=== PATIENT | male | born 1980 | race Caucasian/White ===

== ENCOUNTER 2017-08-05 18:17 | Emergency (ER) | payer SELFPAY ==
--- NOTE | 2017-08-05 19:22 | ER ---
Nurse's Notes [facility] Name: Mike Daugherty Age: 37 yrs Sex: Male : 1980 Arrival Date: 08/05/2017 Time: 18:19 Bed Waiting Private MD: None, None Diagnosis: Presentation: 08/05 18:24 Presenting complaint: Patient states: Lower back pain 1 week ago that has now moved into [facility]. Patient reports that he was going to come to the ER last night but he had to go to work today, so he came after work. Transition of care: patient was not received from another setting of care. Onset of symptoms was July 31, 2017. Risk Assessment: Do you want to hurt yourself or someone else? Patient reports no desire to harm self or others. Care prior to arrival: None. 18:24 Method Of Arrival: Ambulatory 18:24 Acuity: UTE 3 19:20 Note Patient asked registration how long the wait would be. Patient told by aj registration the was was approximately 1 hour. Patient stated "I'll just come back tomorrow after work.". Triage Assessment: 18:25 General: Appears in no apparent distress. uncomfortable, Behavior is calm, cooperative, aj appropriate for age. Pain: Complains of pain in left upper quadrant. Neuro: Level of Consciousness is awake, alert, obeys commands, Oriented to person, place, time, situation, Appropriate for age. Respiratory: Airway is patent Respiratory effort is even, unlabored, Respiratory pattern is regular, symmetrical. GI: Reports upper abdominal pain. Derm: Skin is intact, is healthy with good turgor, Skin is pink, warm \\T\\ dry. normal. Historical: - Allergies: 18:25 PENICILLINS; aj - Home Meds: 18:25 None [Active]; aj - PMHx: 18:25 None; aj - PSHx: 18:25 Appendectomy; aj - Immunization history:: Adult Immunizations up to date. - Social history:: Smoking status: Patient uses tobacco products, smokes one pack cigarettes per day. - Ebola Screening: : Patient negative for fever greater than or equal to 101.5 degrees Fahrenheit, and additional compatible Ebola Virus Disease symptoms Patient denies exposure to infectious person Patient denies travel to an Ebola-affected area in the 21 days before illness onset No symptoms or risks identified at this time. Vital Signs: 18:25 BP 124 / 75; Pulse 82; Resp 16; Temp 97.8; Pulse Ox 97% on R/A; Weight 86.18 kg; Height aj 5 ft. 6 in. (167.64 cm); 18:25 Body Mass Index 30.67 (86.18 kg, 167.64 cm) aj ED Course: 18:19 Patient arrived in ED. sb2 18:20 None, None is Private Physician. sb2 18:25 Triage completed. aj 18:25 Arm band placed on left wrist. Patient placed in waiting room, Patient notified of wait aj time. 19:21 Johnson Coulter MD is Attending Physician. aj Administered Medications: No medications were administered Outcome: 19:19 Eloped from waiting room, Time discovered patient gone: August 05, 2017 at 19:20 aj 19:21 Patient left the ED. aj Signatures: Natalee Almaraz, RN RN Diane Jack sb2
== END 2017-08-05 19:21 | disposition left against medical advice (07) ==
LOC: ER 18:17
DX: Z53.21 Procedure and treatment not carried out due to patient leaving prior to being seen by health care provider (principal)
CPT/HCPCS: 99281

== ENCOUNTER 2017-08-06 18:23 | Emergency (ER) | payer SELFPAY ==
[2017-08-06] MEDS ORDERED: KETOROLAC 30 MG/ML INJ ONE (21:08)
[2017-08-06] MEDS ORDERED: NA CHLORIDE 0.9% 1,000 ML ONE (21:08)
--- NOTE | 2017-08-06 21:14 | RAD REPORT ---
EXAM DESCRIPTION: CT - Stone Protocol - 08/06/2017 8:59 pm CLINICAL HISTORY: Left upper quadrant pain COMPARISON: None. TECHNIQUE: Axial 5 mm thick images were obtained without oral or IV contrast. The [id number] span s the entirety of the system partially obscuring uppermost abdomen and lung bases. All CT scans are performed using dose optimization technique as appropriate and may include automated exposure control or mA/KV adjustment according to patient size. FINDINGS: No hydronephrosis is present and no obstructing ureteral calculi. No suspicious renal mass es. Isodense masses and pyelonephritis are not excluded on a stone protocol CT scan. No urinary bladd er suspicious finding. Imaged portions of the liver, spleen and pancreas show no suspicious findings on non-contrast imaging . No gallbladder or biliary tree abnormality identified. Liver attenuation borderline fatty infiltrat ed. No adrenal abnormality. No suspicious bowel findings. No hernia, mass or bulky lymphadenopathy noted. No free air, free fluid or inflammatory stranding. No significant bony abnormality. IMPRESSION: Negative CT stone protocol study. Isodense masses and pyelonephritis are not excluded on stone protocol technique. No acute GI process.
[2017-08-06 21:54] LABS: Absolute Lymphocytes (CBC) 3.2 K/uL (0.7-4.9); Absolute Neutrophil 7.1 K/uL (1.8-8.0); Basophils % 0.7 % (0-1.3); Eosinophils % 8.4 % (0-4.4); Hematocrit 44.9 % (39.6-49.0); Lymphocytes % 25.8 % (15.3-44.8); MCH 28.1 pg (27.0-35.0); MCV 86.7 fL (80-100); MPV 10.1 fL (7.6-11.3); RBC Red Blood Cell Count 5.17 M/uL (4.33-5.43)
[2017-08-06 22:10] LABS: Potassium 3.7 mEq/L (3.6-5.0)
[2017-08-06 22:16] LABS: Albumin 3.8 g/dL (3.2-5.5); Bilirubin Direct 0.1 mg/dL (0-0.2); Bilirubin Total 0.5 mg/dL (0.3-1.2); Protein, Total 6.8 g/dL (6.0-8.3)
[2017-08-06] MEDS ORDERED: ONDANSETRON 4 MG/2 ML VIAL ONE (22:16)
[2017-08-06] MEDS ORDERED: MORPHINE 4 MG/ML SYR ONE (22:16)
[2017-08-06 22:38] LABS: Urine Blood NEGATIVE (NEG); Urine Glucose NEGATIVE (NEG); Urine Protein 1+ (NEG); Urine Specific Gravity >1.030 (1.005-1.030)
[2017-08-06 22:49] LABS: Urine Bacteria <20 /HPF (NONE SEEN); Urine Culture Reflex Order NOT NEEDED; Urine Mucus HEAVY /HPF (NONE SEEN); Urine RBC NONE SEEN /HPF (NONE SEEN)
--- NOTE | 2017-08-06 23:24 | EDPHYS ---
Physician Documentation [facility] Name: Mike Daugherty Age: 37 yrs Sex: Male : 1980 Arrival Date: 08/06/2017 Time: 18:26 Bed 14 Private MD: ED Physician Lauri Araiza HPI: 08/07 00:00 This 37 yrs old Male presents to ER via Ambulatory with complaints of pm1 Abdominal Pain. 00:00 The patient presents with abdominal pain in the epigastric area, in the left upper pm1 quadrant, in the left lower quadrant. Onset: The symptoms/episode began/occurred 2 week(s) ago. The symptoms do not radiate. Associated signs and symptoms: Pertinent negatives: nausea, vomiting, and diarrhea, blood in stools, chest pain, dysuria, fever, shortness of breath. The symptoms are described as burning. Modifying factors: The symptoms are alleviated by nothing, the symptoms are aggravated by nothing. Severity of pain: in the emergency department the pain is actually worse. The patient has not experienced similar symptoms in the past. The patient has not recently seen a physician. Historical: - Allergies: 08/06 18:37 PENICILLINS; aj - Home Meds: 18:37 None [Active]; aj - PMHx: 18:37 None; aj - PSHx: 18:37 None; aj - Immunization history:: Adult Immunizations up to date. - Social history:: Smoking status: Patient uses tobacco products, smokes one pack cigarettes per day. - Ebola Screening: : Patient negative for fever greater than or equal to 101.5 degrees Fahrenheit, and additional compatible Ebola Virus Disease symptoms Patient denies exposure to infectious person Patient denies travel to an Ebola-affected area in the 21 days before illness onset No symptoms or risks identified at this time. ROS: 08/07 00:00 Constitutional: Negative for fever, chills, and weight loss, Eyes: Negative for injury, pm1 pain, redness, and discharge, ENT: Negative for injury, pain, and discharge, Neck: Negative for injury, pain, and swelling, Cardiovascular: Negative for chest pain, palpitations, and edema, Respiratory: Negative for shortness of breath, cough, wheezing, and pleuritic chest pain. Back: Negative for injury and pain, : Negative for injury, bleeding, discharge, and swelling, MS/Extremity: Negative for injury and deformity, Skin: Negative for injury, rash, and discoloration, Neuro: Negative for headache, weakness, numbness, tingling, and seizure. Abdomen/GI: Positive for abdominal pain, Negative for nausea, vomiting, and diarrhea. Exam: 00:00 Constitutional: This is a well developed, well nourished patient who is awake, alert, pm1 and in no acute distress. Head/Face: Normocephalic, atraumatic. Chest/axilla: Normal chest wall appearance and motion. Nontender with no deformity. No lesions are appreciated. Cardiovascular: Regular rate and rhythm with a normal S1 and S2. No gallops, murmurs, or rubs. Normal PMI, no JVD. No pulse deficits. Respiratory: Lungs have equal breath sounds bilaterally, clear to auscultation and percussion. No rales, rhonchi or wheezes noted. No increased work of breathing, no retractions or nasal flaring. 00:00 Back: No spinal tenderness. No costovertebral tenderness. Full range of motion. Skin: Warm, dry with normal turgor. Normal color with no rashes, no lesions, and no evidence of cellulitis. MS/ Extremity: Pulses equal, no cyanosis. Neurovascular intact. Full, normal range of motion. 00:00 Abdomen/GI: Inspection: abdomen appears normal, Bowel sounds: normal, Palpation: soft, mild abdominal tenderness, in the epigastric area and left upper quadrant, mass, is not appreciated, rebound tenderness, is not appreciated. 00:00 Neuro: Orientation: is normal, Motor: moves all fours. Vital Signs: 08/06 18:37 BP 122 / 76; Pulse 80; Resp 16; Temp 98.2; Pulse Ox 97% on R/A; Weight 86.18 kg; Height aj 5 ft. 5 in. (165.10 cm); Pain 10/10; 20:20 BP 141 / 95; Pulse 69; Resp 17; Pulse Ox 100% on R/A; Pain 9/10; bs1 21:20 BP 138 / 86; Pulse 80; Resp 16; Pulse Ox 99% on R/A; bs1 22:20 BP 120 / 72; Pulse 71; Resp 16 S; Pulse Ox 96% on R/A; bs1 23:20 BP 130 / 72; Pulse 79; Resp 16; Pulse Ox 99% on R/A; bs1 08/07 00:20 BP 132 / 80; Pulse 80; Resp 16 S; Temp 98(O); Pulse Ox 100% on R/A; Pain 5/10; bs1 08/06 18:37 Body Mass Index 31.62 (86.18 kg, 165.10 cm) aj MDM: 08/06 20:37 Patient medically screened. [facility] 20:48 Data reviewed: vital signs. Data interpreted: Pulse oximetry: on room air is 97 %. 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 08/07 00:10 ED course: improvement in pain with GI cocktail. pm1 08/06 20:37 Order name: Amylase, Serum; Complete Time: 23:18 pm1 08/06 20:37 Order name: Basic Metabolic Panel; Complete Time: 23:18 pm1 08/06 20:37 Order name: CBC with Diff; Complete Time: 23:18 pm1 08/06 20:37 Order name: Creatinine for Radiology; Complete Time: 23:18 pm1 08/06 20:37 Order name: Hepatic Function; Complete Time: 23:18 pm1 08/06 20:37 Order name: Lipase; Complete Time: 23:18 pm1 08/06 20:37 Order name: Urine Microscopic Only; Complete Time: 23:18 pm1 08/06 20:50 Order name: CT Stone Protocol; Complete Time: 21:29 pm1 08/06 22:13 Order name: Urine Dipstick--Ancillary (enter results); Complete Time: 23:18 ms 08/06 20:37 Order name: IV Saline Lock; Complete Time: 21:48 pm1 08/06 20:37 Order name: Labs collected and sent; Complete Time: 21:48 pm1 08/06 20:37 Order name: Urine Dipstick-Ancillary (obtain specimen); Complete Time: 22:21 pm1 Administered Medications: 08/06 21:22 Drug: NS 0.9% 1000 ml Route: IV; Rate: 1000 ml; Site: right antecubital; bs1 08/07 00:21 Follow up: IV Status: Completed infusion bs1 08/06 21:22 Drug: TORadol 30 mg Route: IVP; Site: right antecubital; bs1 08/07 00:21 Follow up: Response: No adverse reaction bs1 08/06 22:19 Drug: morphine 4 mg Route: IVP; Site: right antecubital; bs1 08/07 00:21 Follow up: Response: No adverse reaction bs1 08/06 22:20 Drug: Zofran 4 mg Route: IVP; Site: right antecubital; bs1 08/07 00:21 Follow up: Response: No adverse reaction bs1 08/06 23:43 Drug: GI Cocktail without - (Maalox Suspension 30 ml, Lidocaine Liquid 2 % 15 bs1 ml) Route: PO; 08/07 00:20 Follow up: Response: No adverse reaction bs1 Disposition: 07:20 Co-signature as Attending Physician, Lauri Araiza MD I agree with the assessment and [facility] plan of care. Disposition: 08/06/17 23:23 Discharged to Home. Impression: Unspecified abdominal pain. - Condition is Stable. - Discharge Instructions: Abdominal Pain, Adult. - Prescriptions for Bentyl 20 mg Oral Tablet - take 1 tablet by ORAL route every 6 hours As needed; 20 tablet. Pepcid 20 mg Oral Tablet - take 1 tablet by ORAL route every 12 hours for 10 days; 20 tablet. - Medication Reconciliation Form, Thank You Letter, Antibiotic Education form. - Follow up: Emergency Department; When: As needed; Reason: Worsening of condition. Follow up: Private Physician; When: 2 - 3 days; Reason: Recheck today's complaints, Continuance of care, Re-evaluation by your physician. - Problem is new. - Symptoms have improved. Signatures: Dispatcher [employer] EDMS Natalee Almaraz RN RN aj Anderson, Corey, MD MD cha Marinas, Patrick, BIOINFORMATICS SCIENTIST BIOINFORMATICS SCIENTIST pm1 Naz Faustin, RN RN bs1 Corrections: (The following items were deleted from the chart) 00:30 08/06 23:23 08/06/2017 23:23 Discharged to Home. Impression: Unspecified abdominal bs1 pain. Condition is Stable. Forms are Medication Reconciliation Form, Thank You Letter, Antibiotic Education, Prescription Opioid Use. Follow up: Emergency Department; When: As needed; Reason: Worsening of condition. Follow up: Private Physician; When: 2 - 3 days; Reason: Recheck today's complaints, Continuance of care, Re-evaluation by your physician. Problem is new. Symptoms have improved. pm1
--- NOTE | 2017-08-06 23:24 | ER ---
Nurse's Notes [facility] Name: Mike Daugherty Age: 37 yrs Sex: Male : 1980 Arrival Date: 08/06/2017 Time: 18:26 Bed 14 Private MD: Diagnosis: Unspecified abdominal pain Presentation: 08/06 18:36 Presenting complaint: Patient states: LUQ pain for over 1 week. Patient states pain is aj 10/10 while actively playing game on cell phone. Transition of care: patient was not received from another setting of care. Onset of symptoms was July 30, 2017. Risk Assessment: Do you want to hurt yourself or someone else? Patient reports no desire to harm self or others. Care prior to arrival: None. 18:36 Method Of Arrival: Ambulatory aj 18:36 Acuity: UTE 3 aj 23:06 Initial Sepsis Screen: Does the patient meet any 2 criteria? No. Patient's initial bs1 sepsis screen is negative. Does the patient have a suspected source of infection? No. Patient's initial sepsis screen is negative. Triage Assessment: 18:37 General: Appears in no apparent distress. comfortable, Behavior is calm, cooperative, aj appropriate for age. Pain: Complains of pain in left upper quadrant. Neuro: Level of Consciousness is awake, alert, obeys commands, Oriented to person, place, time, situation, Appropriate for age. Respiratory: Airway is patent Respiratory effort is even, unlabored, Respiratory pattern is regular, symmetrical. GI: Reports upper abdominal pain. Derm: Skin is intact, is healthy with good turgor, Skin is pink, warm \T\ dry. normal. Historical: - Allergies: 18:37 PENICILLINS; aj - Home Meds: 18:37 None [Active]; aj - PMHx: 18:37 None; aj - PSHx: 18:37 None; aj - Immunization history:: Adult Immunizations up to date. - Social history:: Smoking status: Patient uses tobacco products, smokes one pack cigarettes per day. - Ebola Screening: : Patient negative for fever greater than or equal to 101.5 degrees Fahrenheit, and additional compatible Ebola Virus Disease symptoms Patient denies exposure to infectious person Patient denies travel to an Ebola-affected area in the 21 days before illness onset No symptoms or risks identified at this time. Screenin:05 Abuse screen: Denies threats or abuse. Denies injuries from another. Nutritional bs1 screening: No deficits noted. Tuberculosis screening: No symptoms or risk factors identified. Fall Risk None identified. Assessment: 20:20 General: Appears in no apparent distress. uncomfortable, Behavior is cooperative, bs1 anxious. Pain: Complains of pain in abdomen and left upper quadrant Pain radiates to right flank. Neuro: Level of Consciousness is awake, alert, obeys commands, Oriented to person, place, time, situation, Appropriate for age. Cardiovascular: Denies chest pain, shortness of breath, Heart tones S1 S2 present Capillary refill < 3 seconds Patient's skin is warm and dry. Respiratory: Airway is patent Trachea midline Respiratory effort is even, unlabored, Respiratory pattern is regular, symmetrical, Breath sounds are clear bilaterally. GI: Abdomen is round non-distended, Bowel sounds present X 4 quads. Abdomen is tender to palpation in left lower quadrant Reports nausea. : Reports burning with urination. EENT: No signs and/or symptoms were reported regarding the EENT system. Derm: Skin is intact. Musculoskeletal: Circulation, motion, and sensation intact. Capillary refill < 3 seconds, Range of motion: intact in all extremities. 21:45 Reassessment: Patient appears in no apparent distress at this time. Patient and/or bs1 family updated on plan of care and expected duration. Pain level reassessed. Patient is alert, oriented x 3, equal unlabored respirations, skin warm/dry/pink. c/o abdominal pain. 22:45 Reassessment: No changes from previously documented assessment. Patient and/or family bs1 updated on plan of care and expected duration. Pain level reassessed. Patient is alert, oriented x 3, equal unlabored respirations, skin warm/dry/pink. 08/07 00:15 Reassessment: Patient appears in no apparent distress at this time. Patient and/or bs1 family updated on plan of care and expected duration. Pain level reassessed. Patient is alert, oriented x 3, equal unlabored respirations, skin warm/dry/pink. Patient states feeling better. Vital Signs: 08/06 18:37 BP 122 / 76; Pulse 80; Resp 16; Temp 98.2; Pulse Ox 97% on R/A; Weight 86.18 kg; Height aj 5 ft. 5 in. (165.10 cm); Pain 10/10; 20:20 BP 141 / 95; Pulse 69; Resp 17; Pulse Ox 100% on R/A; Pain 9/10; bs1 21:20 BP 138 / 86; Pulse 80; Resp 16; Pulse Ox 99% on R/A; bs1 22:20 BP 120 / 72; Pulse 71; Resp 16 S; Pulse Ox 96% on R/A; bs1 23:20 BP 130 / 72; Pulse 79; Resp 16; Pulse Ox 99% on R/A; bs1 08/07 00:20 BP 132 / 80; Pulse 80; Resp 16 S; Temp 98(O); Pulse Ox 100% on R/A; Pain 5/10; bs1 08/06 18:37 Body Mass Index 31.62 (86.18 kg, 165.10 cm) aj ED Course: 08/06 18:26 Patient arrived in ED. sb2 18:37 Triage completed. aj 18:37 Arm band placed on left wrist. Patient placed in waiting room, Patient notified of wait aj time. 20:35 Shlomo Monroe NP is PHCP. pm1 20:35 Lauri Araiza MD is Attending Physician. pm1 20:[address] via wheelchair. sj 20:59 CT Stone Protocol In Process Unspecified. EDMS 20:59 CT completed. Patient tolerated procedure well. Patient moved back from [place]. nj 21:04 Naz Faustin, RN is Primary Nurse. bs1 21:15 Inserted saline lock: 22 gauge in right antecubital area, using aseptic technique. bs1 Blood collected. 23:05 No provider procedures requiring assistance completed. bs1 23:06 Patient has correct armband on for positive identification. Bed in low position. Call bs1 light in reach. Side rails up X 1. Pulse ox on. NIBP on. Warm blanket given. 08/07 00:20 IV discontinued, bleeding controlled, No redness/swelling at site. Pressure dressing bs1 applied. Administered Medications: 08/06 21:22 Drug: NS 0.9% 1000 ml Route: IV; Rate: 1000 ml; Site: right antecubital; bs1 08/07 00:21 Follow up: IV Status: Completed infusion bs1 08/06 21:22 Drug: TORadol 30 mg Route: IVP; Site: right antecubital; bs1 08/07 00:21 Follow up: Response: No adverse reaction bs1 08/06 22:19 Drug: morphine 4 mg Route: IVP; Site: right antecubital; bs1 08/07 00:21 Follow up: Response: No adverse reaction bs1 08/06 22:20 Drug: Zofran 4 mg Route: IVP; Site: right antecubital; bs1 08/07 00:21 Follow up: Response: No adverse reaction bs1 08/06 23:43 Drug: GI Cocktail without - (Maalox Suspension 30 ml, Lidocaine Liquid 2 % 15 bs1 ml) Route: PO; 08/07 00:20 Follow up: Response: No adverse reaction bs1 Outcome: 08/06 23:23 Discharge ordered by . pm1 08/07 00:20 Discharged to home with significant other. bs1 Condition: stable Discharge instructions given to patient, Instructed on discharge instructions, follow up and referral plans. medication usage, Demonstrated understanding of instructions, follow-up care, medications, Prescriptions given X 2. 00:30 Patient left the ED. bs1 Signatures: Dispatcher [employer] Natalee Zapata, RN Veronica Coffman Patrick, NP [employer]PER pm1 Ha Baltazar Brittany, RN RN bs1 Diane Rios2
[2017-08-06] MEDS ORDERED: LIDOCAINE VISCOUS 2% SOLN 15 ML UDC ONE (23:39)
[2017-08-06] MEDS ORDERED: MAGNE/ALUM HYDROXD 30 ML UCUP ONE (23:39)
== END 2017-08-07 00:30 | disposition home or self-care (01) ==
LOC: ER 18:23
DX: R10.9 Unspecified abdominal pain (principal); F17.210 Nicotine dependence, cigarettes, uncomplicated; Z88.0 Allergy status to penicillin
CPT/HCPCS: 36415; 74176; 76377; 80048; 80076; 81003; 81015; 82150; 83690; 85025; 96361; 96374; 96375; 99284; J2405; J7030

== ENCOUNTER 2017-08-31 19:02 | Emergency (ER) | payer SELFPAY ==
[2017-08-31 19:43] LABS: Absolute Neutrophil 9.3 K/uL (1.8-8.0); Basophils % 0.6 % (0-1.3); Hematocrit 48.2 % (39.6-49.0); Lymphocytes % 20.7 % (15.3-44.8); MCH 28.9 pg (27.0-35.0); MCV 85.6 fL (80-100); MPV 9.7 fL (7.6-11.3); Monocytes % 6.6 % (3.3-12.3); RBC Red Blood Cell Count 5.62 M/uL (4.33-5.43)
[2017-08-31] MEDS ORDERED: FAMOTIDINE 20 MG/2 ML VIAL IV ONE (19:52)
[2017-08-31 19:57] LABS: ALT/SGPT 29 U/L (12-78); AST/SGOT 17 U/L (15-37); Albumin 3.6 g/dL (3.4-5.0); Alkaline Phosphatase 78 U/L (45-117); BUN Blood Urea Nitrogen 12 mg/dL (7-18); Bicarbonate 26 mmol/L (21-32); Bilirubin Direct < 0.1 mg/dL (0-0.2); Bilirubin Total 0.3 mg/dL (0.2-1.0); Glucose Level 101 mg/dL (74-106); Lipase 311 U/L (73-393); Potassium 3.9 mmol/L (3.5-5.1); Protein, Total 7.3 g/dL (6.4-8.2); Sodium Level 139 mmol/L (136-145)
[2017-08-31] MEDS ORDERED: MAGNE/ALUM HYDROXD 30 ML UCUP ONE (20:12)
[2017-08-31] MEDS ORDERED: LIDOCAINE VISCOUS 2% SOLN 15 ML UDC ONE (20:13)
--- NOTE | 2017-08-31 21:21 | RAD REPORT ---
EXAM DESCRIPTION: CTAbdomen Pelvis W Contrast - 08/31/2017 9:11 pm CLINICAL HISTORY: Abdominal pain. iv only;Abd pain COMPARISON: Stone Protocol dated 08/06/2017; CT ABD PELVIS W CONTRAST dated 08/21/2010 TECHNIQUE: Biphasic CT imaging of the abdomen and pelvis was performed with 100 ml non-ionic IV cont rast. All CT scans are performed using dose optimization technique as appropriate and may include automated exposure control or mA/KV adjustment according to patient size. FINDINGS: The lung bases are clear. The liver, spleen, pancreas, adrenal glands and kidneys are within normal limits. No bowel obstruction, free air, free fluid or abscess. Appendectomy. No evidence of significant lym phadenopathy. No suspicious bony findings. IMPRESSION: No acute intra-abdominal or pelvic finding.
[2017-08-31] MEDS ORDERED: MORPHINE 4 MG/ML SYR ONE (21:22)
[2017-08-31] MEDS ORDERED: ONDANSETRON 4 MG/2 ML VIAL ONE (21:22)
[2017-08-31 21:26] LABS: Urine Blood NEGATIVE (NEG); Urine Glucose 4+ (NEG); Urine Protein NEGATIVE (NEG); Urine Specific Gravity 1.025 (1.005-1.030); Urine pH 6.5 (5.0-7.0)
--- NOTE | 2017-08-31 21:28 | ER ---
Nurse's Notes [facility] Name: Mike Daugherty Age: 37 yrs Sex: Male : 1980 Arrival Date: 08/31/2017 Time: 19:05 Bed 5 Private MD: Diagnosis: Gastritis, unspecified, without bleeding;Gastro-esophageal reflux disease with esophagitis Presentation: 08/31 19:08 Presenting complaint: Patient states: "For a few months now off and on, I have had pain lk1 like when I had my appendix out. Now for a few days, the pain has been constant. I wake up at night and feel like I have fire in my throat.". Transition of care: patient was not received from another setting of care. Onset of symptoms was August 25, 2017. Risk Assessment: Do you want to hurt yourself or someone else? Patient reports no desire to harm self or others. Initial Sepsis Screen: Does the patient meet any 2 criteria? No. Patient's initial sepsis screen is negative. Does the patient have a suspected source of infection? No. Patient's initial sepsis screen is negative. Care prior to arrival: None. 19:08 Method Of Arrival: Ambulatory lk1 19:08 Acuity: UTE 3 lk1 Historical: - Allergies: 19:10 PENICILLINS; lk1 - PMHx: 19:10 None; lk1 - PSHx: 19:10 Appendectomy; lk1 - Immunization history:: Adult Immunizations up to date. - Social history:: Smoking status: Patient/guardian denies using tobacco. - Ebola Screening: : No symptoms or risks identified at this time. Screenin:24 Abuse screen: Denies threats or abuse. Denies injuries from another. Nutritional rv screening: No deficits noted. Tuberculosis screening: No symptoms or risk factors identified. Fall Risk None identified. Assessment: 19:22 General: Appears in no apparent distress. uncomfortable, Behavior is calm, cooperative. rv Pain: Complains of pain in abdomen Pain currently is 5 out of 10 on a pain scale. Quality of pain is described as dull, Is continuous. Neuro: Level of Consciousness is awake, alert, obeys commands, Oriented to person, place, time, situation. Cardiovascular: Capillary refill < 3 seconds. Respiratory: Airway is patent. GI: Bowel sounds present X 4 quads. Abd is soft and non tender Reports diarrhea. : No signs and/or symptoms were reported regarding the genitourinary system. EENT: No signs and/or symptoms were reported regarding the EENT system. Derm: Skin. Musculoskeletal: No signs and/or symptoms reported regarding the musculoskeletal system. 21:04 Reassessment: Patient appears in no apparent distress at this time. Patient and/or rv family updated on plan of care and expected duration. Pain level reassessed. Patient is alert, oriented x 3, equal unlabored respirations, skin warm/dry/pink. still in pain. lying on bed. vital signs are stable. 21:06 Reassessment: patient taken to CT scan. rv Vital Signs: 19:10 BP 117 / 84; Pulse 89; Resp 15 S; Temp 98.0(TE); Pulse Ox 97% on R/A; Weight 86.18 kg lk1 (R); Height 5 ft. 7 in. (170.18 cm) (R); Pain 10/10; 19:18 BP 133 / 86; Pulse 74; Resp 16; Pulse Ox 98% on R/A; mt 21:05 BP 113 / 67; rv 19:10 Body Mass Index 29.76 (86.18 kg, 170.18 cm) lk1 ED Course: 19:05 Patient arrived in ED. es 19:09 Triage completed. lk1 19:10 Arm band placed on right wrist. lk1 19:14 Ky Bird PA is PHCP. jr8 19:14 Johnson Coulter MD is Attending Physician. jr8 19:24 Patient has correct armband on for positive identification. Bed in low position. Call rv light in reach. Side rails up X 1. Pulse ox on. NIBP on. 19:32 Inserted saline lock: 20 gauge in right antecubital area, using aseptic technique. rv 21:11 CT Abd/Pelvis - W/Contrast In Process Unspecified. EDMS 21:12 Clyde Samaniego, STEWART is Primary Nurse. bp 21:27 Myla Rhodes MD is Referral Physician. jr8 21:43 No provider procedures requiring assistance completed. IV discontinued, bleeding rv controlled, No redness/swelling at site. Pressure dressing applied. Administered Medications: 19:55 Drug: Pepcid 20 mg Route: IVP; Site: right antecubital; rv 21:44 Follow up: Response: No adverse reaction rv 20:13 Drug: GI Cocktail without - (Maalox Suspension 30 ml, Lidocaine Liquid 2 % 15 rv ml) Route: PO; 21:44 Follow up: Response: No adverse reaction rv Outcome: 21:28 Discharge ordered by MD. reardon 21:43 Discharged to home ambulatory. rv 21:43 Condition: improved 21:43 Discharge instructions given to patient, Instructed on discharge instructions, medication usage. 21:45 Patient left the ED. rv Signatures: Dispatcher [employer] EDKendra Stone Josh, PA PA jr8 Cathie Molina RN RN lk1 Alexandria Bowne mt, Brian, RN RN Andres Taylor RN RN rv
--- NOTE | 2017-08-31 21:28 | EDPHYS ---
Physician Documentation [facility] Name: Mike Daugherty Age: 37 yrs Sex: Male : 1980 Arrival Date: 08/31/2017 Time: 19:05 Bed 5 Private MD: ED Physician Johnson Coulter HPI: 08/31 20:18 This 37 yrs old Male presents to ER via Ambulatory with complaints of jr8 Abdominal Pain. 20:18 The patient presents with abdominal pain in the epigastric area. Onset: The jr8 symptoms/episode began/occurred gradually, 4 week(s) ago. The symptoms do not radiate. Associated signs and symptoms: none. The symptoms are described as burning. Modifying factors: The symptoms are alleviated by nothing, the symptoms are aggravated by nothing. Severity of pain: At its worst the pain was mild in the emergency department the pain is unchanged. The patient has not experienced similar symptoms in the past. The patient has not recently seen a physician. Historical: - Allergies: 19:10 PENICILLINS; lk1 - PMHx: 19:10 None; lk1 - PSHx: 19:10 Appendectomy; lk1 - Immunization history:: Adult Immunizations up to date. - Social history:: Smoking status: Patient/guardian denies using tobacco. - Ebola Screening: : No symptoms or risks identified at this time. ROS: 20:18 Eyes: Negative for injury, pain, redness, and discharge, ENT: Negative for injury, jr8 pain, and discharge, Neck: Negative for injury, pain, and swelling, Cardiovascular: Negative for chest pain, palpitations, and edema, Respiratory: Negative for shortness of breath, cough, wheezing, and pleuritic chest pain, Back: Negative for injury and pain, MS/Extremity: Negative for injury and deformity, Skin: Negative for injury, rash, and discoloration, Neuro: Negative for headache, weakness, numbness, tingling, and seizure. 20:18 Abdomen/GI: Positive for abdominal pain, Negative for nausea, vomiting, diarrhea, abdominal distension, anorexia, dysphagia, hematemesis, black/tarry stool, rectal pain, rectal bleeding, bowel incontinence, flatulence. Exam: 20:18 Eyes: Pupils equal round and reactive to light, extra-ocular motions intact. Lids and jr8 lashes normal. Conjunctiva and sclera are non-icteric and not injected. Cornea within normal limits. Periorbital areas with no swelling, redness, or edema. ENT: Nares patent. No nasal discharge, no septal abnormalities noted. Tympanic membranes are normal and external auditory canals are clear. Oropharynx with no redness, swelling, or masses, exudates, or evidence of obstruction, uvula midline. Mucous membranes moist. Neck: Trachea midline, no thyromegaly or masses palpated, and no cervical lymphadenopathy. Supple, full range of motion without nuchal rigidity, or vertebral point tenderness. No Meningismus. Cardiovascular: Regular rate and rhythm with a normal S1 and S2. No gallops, murmurs, or rubs. Normal PMI, no JVD. No pulse deficits. Respiratory: Lungs have equal breath sounds bilaterally, clear to auscultation and percussion. No rales, rhonchi or wheezes noted. No increased work of breathing, no retractions or nasal flaring. Abdomen/GI: Soft, non-tender, with normal bowel sounds. No distension or tympany. No guarding or rebound. No evidence of tenderness throughout. Back: No spinal tenderness. No costovertebral tenderness. Full range of motion. Skin: Warm, dry with normal turgor. Normal color with no rashes, no lesions, and no evidence of cellulitis. MS/ Extremity: Pulses equal, no cyanosis. Neurovascular intact. Full, normal range of motion. Neuro: Awake and alert, GCS 15, oriented to person, place, time, and situation. Cranial nerves II-XII grossly intact. Motor strength 5/5 in all extremities. Sensory grossly intact. Cerebellar exam normal. Normal gait. Vital Signs: 19:10 BP 117 / 84; Pulse 89; Resp 15 S; Temp 98.0(TE); Pulse Ox 97% on R/A; Weight 86.18 kg lk1 (R); Height 5 ft. 7 in. (170.18 cm) (R); Pain 10/10; 19:18 BP 133 / 86; Pulse 74; Resp 16; Pulse Ox 98% on R/A; mt 21:05 BP 113 / 67; rv 19:10 Body Mass Index 29.76 (86.18 kg, 170.18 cm) lk1 MDM: 19:14 Patient medically screened. jr8 20:46 ED course: Patient with no relief after medication given. Will CT scan abdomen to jr8 insure no acute findings are found . 21:25 Data reviewed: vital signs, nurses notes, lab test result(s), radiologic studies, CT jr8 scan, and as a result, I will discharge patient. Data interpreted: Pulse oximetry: on room air is 98 %. Interpretation: normal. 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 Special discussion: Based on the patient's Hx, exam, and Dx evaluation, there is no indication for emergent surgery or inpatient Tx. It is understood by the patient/guardian that if the Sx's persist or worsen they need to return immediately for re-evaluation. 21:25 ED course: Because of the chronic epigastric pain and burning in esophageal region at [facility] night, this most likely is undiagnosed gastritis and GERD. Peptic ulcer, H Pylori are also considerations. Patient needs to f/u with GI for endoscopy. Nothing acute on CT to signify surgical consult or admission . 08/31 19:14 Order name: Basic Metabolic Panel; Complete Time: 20:01 [facility] 08/31 19:14 Order name: CBC with Diff; Complete Time: 19:49 [facility] 08/31 19:14 Order name: Creatinine for Radiology; Complete Time: 20:09 [facility] 08/31 19:14 Order name: Hepatic Function; Complete Time: 20:01 [facility] 08/31 19:14 Order name: Lipase; Complete Time: 20:01 [facility] 08/31 21:19 Order name: Urine Dipstick--Ancillary (enter results); Complete Time: 21:29 08/31 19:14 Order name: IV Saline Lock; Complete Time: 19:34 [facility] 08/31 19:14 Order name: Labs collected and sent; Complete Time: 19:35 [facility] 08/31 20:46 Order name: CT Abd/Pelvis - W/Contrast; Complete Time: 21:24 jr8 Administered Medications: 19:55 Drug: Pepcid 20 mg Route: IVP; Site: right antecubital; rv 21:44 Follow up: Response: No adverse reaction rv 20:13 Drug: GI Cocktail without - (Maalox Suspension 30 ml, Lidocaine Liquid 2 % 15 rv ml) Route: PO; 21:44 Follow up: Response: No adverse reaction rv Disposition: 09/01 10:10 Co-signature as Attending Physician, Johnson Coulter MD. Disposition: 08/31/17 21:28 Discharged to Home. Impression: Gastritis, unspecified, without bleeding, Gastro-esophageal reflux disease with esophagitis. - Condition is Stable. - Discharge Instructions: Gastritis, Adult, Gastroesophageal Reflux Disease, Adult. - Prescriptions for pantoprazole 40 mg Oral tablet,delayed release (DR/EC) - take 1 tablet by ORAL route once daily; 30 tablet. - Medication Reconciliation Form, Thank You Letter, Antibiotic Education, Prescription Opioid Use form. - Follow up: Myla Rhodes MD; When: 2 - 3 days; Reason: Recheck today's complaints, Continuance of care, Re-evaluation by your physician. - Problem is new. - Symptoms have improved. Signatures: Dispatcher [employer] EDMS Ky Bird PA PA jr8 Cathie Molina RN RN lk1 Johnson Coulter MD MD Andres Fernandez RN RN rv Corrections: (The following items were deleted from the chart) 08/31 21:45 21:28 08/31/2017 21:28 Discharged to Home. Impression: Gastritis, unspecified, without rv bleeding; Gastro-esophageal reflux disease with esophagitis. Condition is Stable. Forms are Medication Reconciliation Form, Thank You Letter, Antibiotic Education, Prescription Opioid Use. Follow up: Myla Rhodes; When: 2 - 3 days; Reason: Recheck today's complaints, Continuance of care, Re-evaluation by your physician. Problem is new. Symptoms have improved. jr8
== END 2017-08-31 21:45 | disposition home or self-care (01) ==
LOC: ER 19:02
DX: K29.70 Gastritis, unspecified, without bleeding (principal); K21.0 Gastro-esophageal reflux disease with esophagitis; Z88.0 Allergy status to penicillin
CPT/HCPCS: 36415; 74177; 80048; 80076; 81003; 83690; 85025; 96374; 99284; J2405; Q9967

== ENCOUNTER 2018-04-13 22:24 | Emergency (ER) | payer SELFPAY ==
[2018-04-14] MEDS ORDERED: KETOROLAC 30 MG/ML INJ ONE (02:01)
[2018-04-14] MEDS ORDERED: HYDROCODONE/APAP 10/325 TAB ONE (02:01)
--- NOTE | 2018-04-14 02:57 | EDPHYS ---
Physician Documentation [facility] Name: Mike Daugherty Age: 38 yrs Sex: Male : 1980 Arrival Date: 04/13/2018 Time: 22:37 Bed 16 Private MD: ED Physician Lauri Araiza HPI: 04/14 01:21 This 38 yrs old Male presents to ER via Ambulatory with complaints of Fall john Injury. 01:21 Details of fall: The patient fell from an upright position. Onset: The symptoms/episode john began/occurred this morning. Historical: - Allergies: 04/13 22:56 PENICILLINS; ak1 - Home Meds: 22:56 None [Active]; ak1 - PMHx: 22:56 None; ak1 - PSHx: 22:56 None; ak1 - Immunization history:: Adult Immunizations unknown. - Social history:: Smoking status: Patient uses tobacco products, smokes one pack cigarettes per day. - Ebola Screening: : No symptoms or risks identified at this time. - Family history:: not pertinent. ROS: 04/14 01:22 Constitutional: Negative for fever, chills, and weight loss, Eyes: Negative for injury, john pain, redness, and discharge, ENT: Negative for injury, pain, and discharge, Neck: Negative for injury, pain, and swelling, Cardiovascular: Negative for chest pain, palpitations, and edema, Respiratory: Negative for shortness of breath, cough, wheezing, and pleuritic chest pain, Abdomen/GI: Negative for abdominal pain, nausea, vomiting, diarrhea, and constipation, : Negative for injury, bleeding, discharge, and swelling, MS/Extremity: Negative for injury and deformity, Skin: Negative for injury, rash, and discoloration, Neuro: Negative for headache, weakness, numbness, tingling, and seizure. Back: Positive for injury or acute deformity, decreased range of motion, pain at rest, pain with movement, flank pain. Exam: 01:22 Constitutional: This is a well developed, well nourished patient who is awake, alert, john and in no acute distress. Head/Face: Normocephalic, atraumatic. Eyes: Pupils equal round and reactive to light, extra-ocular motions intact. Lids and lashes normal. Conjunctiva and sclera are non-icteric and not injected. Cornea within normal limits. Periorbital areas with no swelling, redness, or edema. ENT: Nares patent. No nasal discharge, no septal abnormalities noted. Tympanic membranes are normal and external auditory canals are clear. Oropharynx with no redness, swelling, or masses, exudates, or evidence of obstruction, uvula midline. Mucous membranes moist. Neck: Trachea midline, no thyromegaly or masses palpated, and no cervical lymphadenopathy. Supple, full range of motion without nuchal rigidity, or vertebral point tenderness. No Meningismus. Chest/axilla: Normal chest wall appearance and motion. Nontender with no deformity. No lesions are appreciated. Cardiovascular: Regular rate and rhythm with a normal S1 and S2. No gallops, murmurs, or rubs. Normal PMI, no JVD. No pulse deficits. Respiratory: Lungs have equal breath sounds bilaterally, clear to auscultation and percussion. No rales, rhonchi or wheezes noted. No increased work of breathing, no retractions or nasal flaring. Abdomen/GI: Soft, non-tender, with normal bowel sounds. No distension or tympany. No guarding or rebound. No evidence of tenderness throughout. Back: No spinal tenderness. No costovertebral tenderness. Full range of motion. Male : Normal genitalia with no discharge or lesions. Skin: Warm, dry with normal turgor. Normal color with no rashes, no lesions, and no evidence of cellulitis. Vital Signs: 04/13 22:56 BP 105 / 79; Pulse 60; Resp 16; Temp 98.1(O); Pulse Ox 98% on R/A; Weight 86.18 kg (R); ak1 Height 5 ft. 6 in. (167.64 cm) (R); Pain /10; 04/14 00:12 BP 101 / 73; Pulse 62; Resp 16 S; Pulse Ox 98% on R/A; cc3 01:18 BP 96 / 56; Pulse 64; Resp 19 S; Pulse Ox 97% on R/A; cc3 02:15 BP 103 / 77; Pulse 63; Resp 17 S; Pulse Ox 98% on R/A; cc3 03:24 Pulse 60; Resp 17 S; Pulse Ox 95% on R/A; cc3 04:22 BP 101 / 64; Pulse 68; Resp 16 S; Pulse Ox 95% on R/A; cc3 05:00 BP 105 / 68; Pulse 64; Resp 17 S; Pulse Ox 96% on R/A; cc3 04/13 22:56 Body Mass Index 30.67 (86.18 kg, 167.64 cm) ak1 MDM: 01:02 Patient medically screened. [facility] 04/14 02:55 Order name: Urine Dipstick--Ancillary (enter results) mw2 04/14 01:21 Order name: CT Head C Spine [facility] 04/14 01:21 Order name: Urine Dipstick-Ancillary (obtain specimen); Complete Time: 02:55 [facility] 04/14 01:21 Order name: Chest Pa And Lat (2 Views) XRAY [facility] Administered Medications: 02:00 Drug: Pinole 10 mg-325 mg 1 tabs Route: PO; cc3 02:55 Follow up: Response: Pain is decreased cc3 02:10 Drug: TORadol 60 mg Route: IM; Site: right gluteus; cc3 02:55 Follow up: Response: Pain is decreased cc3 Disposition: 04/14/18 02:56 Discharged to Home. Impression: Fall due to bumping against object, Superficial injury of head, Strain of muscle, fascia and tendon at neck level, Contusion of back wall of thorax. - Condition is Stable. - Discharge Instructions: Head Injury, Adult, Cervical Sprain, [id number], Head Injury, Adult, [id number]. - Prescriptions for Tylenol- Codeine #3 300-30 mg Oral Tablet - take 2 tablets by ORAL route every 6 hours As needed; 26 tablet. Motrin IB 200 mg Oral Tablet - take 2 tablet by ORAL route every 6 hours As needed as needed with food; 30 tablet. Cyclobenzaprine 5 mg Oral Tablet - take 1 tablet by ORAL route 3 times per day As needed; 15 tablet. - Medication Reconciliation Form, Thank You Letter, Antibiotic Education, Prescription Opioid Use, Work release form form. - Follow up: Private Physician; When: 2 - 3 days; Reason: Recheck today's complaints, Continuance of care, Re-evaluation by your physician. - Problem is new. - Symptoms have improved. Signatures: Dispatcher [employer] EDLauri Monk MD MD cha Krenek, Amber, RN RN ak1 Toyin Brooks cc3 Corrections: (The following items were deleted from the chart) 05:16 02:56 04/14/2018 02:56 Discharged to Home. Impression: Fall due to bumping against cc3 object; Superficial injury of head; Strain of muscle, fascia and tendon at neck level; Contusion of back wall of thorax. Condition is Stable. Discharge Instructions: Head Injury, Adult, Cervical Sprain, [id number], Head Injury, Adult, [id number]. Prescriptions for Tylenol-Codeine #3 300-30 mg Oral Tablet - take 2 tablets by ORAL route every 6 hours As needed; 26 tablet, Motrin IB 200 mg Oral Tablet - take 2 tablet by ORAL route every 6 hours As needed as needed with food; 30 tablet, Cyclobenzaprine 5 mg Oral Tablet - take 1 tablet by ORAL route 3 times per day As needed; 15 tablet. and Forms are Medication Reconciliation Form, Thank You Letter, Antibiotic Education, Prescription Opioid Use. Follow up: Private Physician; When: 2 - 3 days; Reason: Recheck today's complaints, Continuance of care, Re-evaluation by your physician. Problem is new. Symptoms have improved. john
--- NOTE | 2018-04-14 02:57 | ER ---
Nurse's Notes [facility] Name: Mike Daugherty Age: 38 yrs Sex: Male : 1980 Arrival Date: 04/13/2018 Time: 22:37 Bed 16 Private MD: Diagnosis: Fall due to bumping against object;Superficial injury of head;Strain of muscle, fascia and tendon at neck level;Contusion of back wall of thorax Presentation: 04/13 22:55 Presenting complaint: Patient states: 0900 slipped and fell into scaffold pole at work. ak1 [facility]. pt c/o pain to neck and right shoulder blade. pt c/o nausea, dizziness. pt denies LOC, denies hitting head. Transition of care: patient was not received from another setting of care. Onset of symptoms was April 13, 2018. Risk Assessment: Do you want to hurt yourself or someone else? Patient reports no desire to harm self or others. Initial Sepsis Screen: Does the patient meet any 2 criteria? No. Patient's initial sepsis screen is negative. Does the patient have a suspected source of infection? No. Patient's initial sepsis screen is negative. Care prior to arrival: None. 22:55 Method Of Arrival: Ambulatory ak1 22:55 Acuity: UTE 4 ak1 Triage Assessment: 22:56 General: Appears in no apparent distress. Behavior is calm, cooperative. Pain: ak1 Complains of pain in back of neck, right shoulder blade. Historical: - Allergies: 22:56 PENICILLINS; ak1 - Home Meds: 22:56 None [Active]; ak1 - PMHx: 22:56 None; ak1 - PSHx: 22:56 None; ak1 - Immunization history:: Adult Immunizations unknown. - Social history:: Smoking status: Patient uses tobacco products, smokes one pack cigarettes per day. - Ebola Screening: : No symptoms or risks identified at this time. - Family history:: not pertinent. Screenin/12 00:12 Abuse screen: Denies threats or abuse. Denies injuries from another. Nutritional cc3 screening: No deficits noted. Tuberculosis screening: No symptoms or risk factors identified. Fall Risk Ambulatory Aid- None/Bed Rest/Nurse Assist (0 pts). Gait- Normal/Bed Rest/Wheelchair (0 pts) Mental Status- Oriented to own ability (0 pts). Assessment: 00:12 General: Appears in no apparent distress. comfortable, Behavior is calm, cooperative, cc3 appropriate for age. Pain:. Neuro: Level of Consciousness is awake, alert, obeys commands, Oriented to person, place, time, situation, Appropriate for age. Cardiovascular: Denies chest pain, Patient's skin is warm and dry. Respiratory: Airway is patent Respiratory effort is even, unlabored, Respiratory pattern is regular, symmetrical. GI: Abdomen is round non-distended. : No signs and/or symptoms were reported regarding the genitourinary system. EENT: No signs and/or symptoms were reported regarding the EENT system. Derm: No signs and/or symptoms reported regarding the dermatologic system. Musculoskeletal: Circulation, motion, and sensation intact. Range of motion: intact in all extremities. 01:18 Reassessment: Patient appears in no apparent distress at this time. Patient and/or cc3 family updated on plan of care and expected duration. Pain level reassessed. Patient is alert, oriented x 3, equal unlabored respirations, skin warm/dry/pink. 02:15 Reassessment: Patient appears in no apparent distress at this time. Patient and/or cc3 family updated on plan of care and expected duration. Pain level reassessed. Patient is alert, oriented x 3, equal unlabored respirations, skin warm/dry/pink. 02:56 Reassessment: Dr. Araiza ordered patient for discharge home not until CT scan has cc3 result already, right now still waiting for CT scan result. 03:07 Reassessment: Patient appears in no apparent distress at this time. Patient and/or cc3 family updated on plan of care and expected duration. Pain level reassessed. Patient is alert, oriented x 3, equal unlabored respirations, skin warm/dry/pink. 04:21 Reassessment: Patient appears in no apparent distress at this time. Patient and/or cc3 family updated on plan of care and expected duration. Pain level reassessed. Patient is alert, oriented x 3, equal unlabored respirations, skin warm/dry/pink. No CT scan result yet, charge nurse Magdalena said they're having issues in the CT scan department. 05:15 Reassessment: Patient appears in no apparent distress at this time. Patient and/or cc3 family updated on plan of care and expected duration. Pain level reassessed. Patient is alert, oriented x 3, equal unlabored respirations, skin warm/dry/pink. CT scan result is released, Dr. Araiza discharged the patient home with prescription given. No IV cannula in situ. Patient left ER vitally stable and ambulatory. Vital Signs: 04/13 22:56 BP 105 / 79; Pulse 60; Resp 16; Temp 98.1(O); Pulse Ox 98% on R/A; Weight 86.18 kg (R); ak1 Height 5 ft. 6 in. (167.64 cm) (R); Pain 8/10; 04/14 00:12 BP 101 / 73; Pulse 62; Resp 16 S; Pulse Ox 98% on R/A; cc3 01:18 BP 96 / 56; Pulse 64; Resp 19 S; Pulse Ox 97% on R/A; cc3 02:15 BP 103 / 77; Pulse 63; Resp 17 S; Pulse Ox 98% on R/A; cc3 03:24 Pulse 60; Resp 17 S; Pulse Ox 95% on R/A; cc3 04:22 BP 101 / 64; Pulse 68; Resp 16 S; Pulse Ox 95% on R/A; cc3 05:00 BP 105 / 68; Pulse 64; Resp 17 S; Pulse Ox 96% on R/A; cc3 04/13 22:56 Body Mass Index 30.67 (86.18 kg, 167.64 cm) ak1 ED Course: 04/13 22:37 Patient arrived in ED. am2 22:56 Triage completed. ak1 22:56 Arm band placed on Patient placed in waiting room, Patient notified of wait time. ak1 04/14 00:12 Toyin Brooks is Primary Nurse. cc3 00:12 Patient has correct armband on for positive identification. Bed in low position. Call cc3 light in reach. Side rails up X 1. Pulse ox on. NIBP on. 01:02 Lauri Araiza MD is Attending Physician. john 01:45 Chest Pa And Lat (2 Views) XRAY In Process Unspecified. EDMS 04:03 CT Head C Spine In Process Unspecified. EDMS 05:15 No provider procedures requiring assistance completed. Patient did not have IV access cc3 during this emergency room visit. Administered Medications: 02:00 Drug: Frederick 10 mg-325 mg 1 tabs Route: PO; cc3 02:55 Follow up: Response: Pain is decreased cc3 02:10 Drug: TORadol 60 mg Route: IM; Site: right gluteus; cc3 02:55 Follow up: Response: Pain is decreased cc3 Outcome: 02:56 Discharge ordered by . john 05:15 Discharged to home ambulatory. cc3 05:15 Condition: stable 05:15 Discharge instructions given to patient, Instructed on discharge instructions, follow up and referral plans. medication usage, Demonstrated understanding of instructions, follow-up care, medications, Prescriptions given X 3. 05:16 Patient left the ED. cc3 Signatures: Dispatcher [employer] EDMS Lauri Araiza MD MD cha Krenek, Amber RN RN colin1 Natalee Ge Charlene cc3
[2018-04-14 03:35] LABS: Urine Blood NEGATIVE (NEG); Urine Glucose NEGATIVE (NEG); Urine Protein NEGATIVE (NEG); Urine Specific Gravity >1.030 (1.005-1.030); Urine pH 5.5 (5.0-7.0)
--- NOTE | 2018-04-14 08:40 | RAD REPORT ---
EXAM DESCRIPTION: RAD - Chest Pa And Lat (2 Views) - 04/14/2018 1:49 am CLINICAL HISTORY: Cough;Pain Chest pain. COMPARISON: No comparisons FINDINGS: The lungs are clear. The heart is normal in size. No displaced fractures. IMPRESSION: No acute or concerning finding suspected.
--- NOTE | 2018-04-14 15:35 | RAD REPORT ---
EXAM DESCRIPTION: CT Head Without Intravenous Contrast. CT Cervical Spine Without Intravenous Contra st CLINICAL HISTORY: Athe patient is 38 years old and is Male; PAIN COMPARISON: No relevant prior studies available. TECHNIQUE: Axial computed tomography images of the head/brain and cervical spine without intravenous contrast. S agittal and coronal reformatted images were created and reviewed. This CT exam was performed using on e or more of the following dose reduction techniques: Automated exposure control, adjustment of the m A and/or kV according to patient size, and/or use of iterative reconstruction technique. FINDINGS: Brain: Unremarkable. No hemorrhage. No significant white matter disease. No edema. Ventricles: Unremarkable. No ventriculomegaly. Skull: No acute fracture. Sinuses: Unremarkable as visualized. No acute sinusitis. Mastoid air cells: Unremarkable as visualized. No mastoid effusion. Vertebrae: The vertebral body heights and alignment are maintained. No acute fracture. Discs/spinal canal/neural foramina: Mild intervertebral disc space narrowing is noted at multiple lev els. There is no significant canal stenosis or neural foraminal narrowing. Soft tissues: The soft tissues are normal. Lung spices: The lung apices are clear. IMPRESSION: 1. No acute intracranial findings. 2. No fracture or malalignment of the cervical spine. Electronically signed by Marta Harrison MD 04/14/2018 4:03 AM RESEARCH AND DEVELOPMENT TESTER Due to temporary technical issues with the PACS/Fluency reporting system, reports are being signed by the in house radiologist as a courtesy to ensure prompt reporting. The interpreting radiologist is f ully responsible for the content of the report.
== END 2018-04-14 05:16 | disposition home or self-care (01) ==
LOC: ER 22:24
DX: S09.90XA Unspecified injury of head, initial encounter (principal); S16.1XXA Strain of muscle, fascia and tendon at neck level, initial encounter; S20.229A Contusion of unspecified back wall of thorax, initial encounter; W18.00XA Striking against unspecified object with subsequent fall, initial encounter; F17.210 Nicotine dependence, cigarettes, uncomplicated; Z88.0 Allergy status to penicillin
CPT/HCPCS: 70450; 71046; 72125; 81003; 96372; 99284

== ENCOUNTER 2018-05-31 14:45 | Emergency (ER) | payer SELFPAY ==
[2018-05-31 15:13] LABS: Urine Blood NEGATIVE (NEG); Urine Glucose NEGATIVE (NEG); Urine Protein NEGATIVE (NEG); Urine Specific Gravity 1.025 (1.005-1.030); Urine pH 6.5 (5.0-7.0)
[2018-05-31] MEDS ORDERED: NA CHLORIDE 0.9% 1,000 ML ONE (15:35)
[2018-05-31] MEDS ORDERED: ONDANSETRON 4 MG/2 ML VIAL ONE (15:35)
[2018-05-31] MEDS ORDERED: FAMOTIDINE 20 MG/2 ML VIAL IV ONE (15:35)
[2018-05-31 15:45] LABS: Absolute Lymphocytes (CBC) 2.6 K/uL (0.7-4.9); Absolute Monocytes 0.7 K/uL (0.1-1.3); Absolute Neutrophil 4.7 K/uL (1.8-8.0); Basophils % 1.2 % (0-1.3); Eosinophils % 8.3 % (0-4.4); Hematocrit 46.9 % (39.6-49.0); Lymphocytes % 28.9 % (15.3-44.8); MPV 10.1 fL (7.6-11.3); Monocytes % 8.1 % (3.3-12.3); RBC Red Blood Cell Count 5.34 M/uL (4.33-5.43)
[2018-05-31] MEDS ORDERED: KETOROLAC 30 MG/ML INJ ONE (16:01)
[2018-05-31 16:04] LABS: Albumin 3.6 g/dL (3.4-5.0); Bilirubin Direct 0.1 mg/dL (0-0.2); Bilirubin Total 0.4 mg/dL (0.2-1.0); Potassium 4.2 mmol/L (3.5-5.1); Protein, Total 7.1 g/dL (6.4-8.2)
[2018-05-31] MEDS ORDERED: MAGNE/ALUM HYDROXD 30 ML UCUP ONE (16:50)
[2018-05-31] MEDS ORDERED: LIDOCAINE VISCOUS 2% SOLN 15 ML UDC ONE (16:50)
--- NOTE | 2018-05-31 17:00 | RAD REPORT ---
EXAM DESCRIPTION: US - Abdomen Exam Limited - 05/31/2018 4:35 pm CLINICAL HISTORY: Abdominal pain COMPARISON: CT study August 2017 FINDINGS: Gallbladder is contracted which limits assessment and accentuates wall thickness. No gross evidence for stone disease. There is no wall thickening or pericholecystic fluid. No common duct stone or biliary tree dilatation identified. IMPRESSION: No gallbladder or biliary tree abnormality seen. However, gallbladder is contracted whi ch limits sensitivity this examination.
--- NOTE | 2018-05-31 17:22 | EDPHYS ---
Physician Documentation [facility] Name: Mike Daugherty Age: 38 yrs Sex: Male : 1980 Arrival Date: 05/31/2018 Time: 14:48 Bed 23 Private MD: None, None ED Physician Rhys Servin HPI: 05/31 15:15 This 38 yrs old Male presents to ER via Ambulatory with complaints of Urinary cp Problem, Abdominal Pain. 15:15 The patient presents with abdominal pain mid abdomen. cp 15:15 Onset: The symptoms/episode began/occurred for weeks. cp 15:15 The symptoms do not radiate. Associated signs and symptoms: Pertinent positives: cp headache, dark colored urine, Pertinent negatives: chest pain, constipation, diarrhea, fever, vomiting. 15:15 The symptoms are described as achy. cp 15:15 Severity of pain: in the emergency department the pain is unchanged despite home cp interventions. The patient has experienced similar episodes in the past, today's symptoms are similar, to when the patient was apparently diagnosed with gastritis, Patient reports he was seen in this ED and prescribed medication that helped, but he stopped taking medication after pain resolved. Historical: - Allergies: 14:53 PENICILLINS; la1 - PMHx: 14:53 None; la1 - PSHx: 14:53 Appendectomy; la1 - Immunization history:: Adult Immunizations up to date. - Social history:: Smoking status: Patient uses tobacco products, smokes one pack cigarettes per day. - Ebola Screening: : No symptoms or risks identified at this time. ROS: 15:30 Constitutional: Negative for body aches, chills, fever, poor PO intake, weight loss. cp 15:30 Eyes: Negative for injury, pain, redness, and discharge. cp 15:30 ENT: Negative for drainage from ear(s), ear pain, sore throat, difficulty swallowing, difficulty handling secretions, hoarseness. 15:30 Cardiovascular: Negative for chest pain, edema, palpitations. 15:30 Respiratory: Negative for cough, shortness of breath, wheezing. 15:30 Abdomen/GI: Positive for abdominal pain, Negative for vomiting, diarrhea, constipation, black/tarry stool, rectal bleeding. 15:30 Back: Negative for pain at rest, pain with movement, radiated pain. 15:30 : Negative for urinary symptoms. 15:30 Skin: Negative for cellulitis, rash. 15:30 Neuro: Negative for altered mental status, headache, weakness. 15:30 All other systems are negative. Exam: 15:35 Constitutional: The patient appears in no acute distress, alert, awake, cp non-diaphoretic, non-toxic, well developed, well nourished. 15:35 Head/Face: Normocephalic, atraumatic. cp 15:35 Eyes: Periorbital structures: appear normal, Conjunctiva: normal, no exudate, no injection, Sclera: no appreciated abnormality, Lids and lashes: appear normal, bilaterally. 15:35 ENT: External ear(s): are unremarkable, Nose: is normal, Mouth: Lips: moist, Oral mucosa: pink and intact, moist, Posterior pharynx: Airway: no evidence of obstruction, patent, Tonsils: are normal in appearance, Uvula: midline, swelling, is not appreciated, erythema, is not appreciated, exudate, is not appreciated. 15:35 Chest/axilla: Inspection: normal, Palpation: is normal, no crepitus, no tenderness. 15:35 Cardiovascular: Rate: normal, Rhythm: regular. 15:35 Respiratory: the patient does not display signs of respiratory distress, Respirations: normal, no use of accessory muscles, no retractions, no splinting, no tachypnea, labored breathing, is not present, Breath sounds: are clear throughout, no decreased breath sounds, no stridor, no wheezing. 15:35 Abdomen/GI: Inspection: abdomen appears normal, Bowel sounds: active, all quadrants, Palpation: soft, in all quadrants, moderate abdominal tenderness, in the mid abdomen, rebound tenderness, is not appreciated, voluntary guarding, is not appreciated, involuntary guarding, is not appreciated. 15:35 Back: pain, is absent, ROM is normal. 15:35 Skin: cellulitis, is not appreciated, no rash present. Vital Signs: 14:53 BP 113 / 76; Pulse 88; Resp 16; Temp 98.4; Pulse Ox 98% on R/A; Weight 86.18 kg; Height la1 5 ft. 7 in. (170.18 cm); Pain 5/10; 16:44 BP 111 / 69; Pulse 66; Resp 18; Pulse Ox 100% on R/A; Pain 2/10; mg2 17:40 BP 112 / 78; Pulse 80; Resp 18; Pulse Ox 100% on R/A; Pain 0/10; mg2 14:53 Body Mass Index 29.76 (86.18 kg, 170.18 cm) la1 MDM: 15:07 Patient medically screened. cp 15:30 Differential diagnosis: cholecystitis, Cholelithiasis, diverticulitis, gastritis, cp gastroesophageal reflux disease, GI Bleed, non-specific abd pain, pancreatitis, Peptic Ulcer Disease, Perf. Duodenal Ulcer, Perf. Gastric Ulcer, urinary tract infection. 17:20 Data reviewed: vital signs, nurses notes, old medical records, lab test result(s), cp radiologic studies, plain films, ultrasound. 17:20 Test interpretation: by ED physician or midlevel provider: plain radiologic studies. 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 Response to treatment: the patient's symptoms have markedly improved after treatment, and as a result, I will discharge patient. Special discussion: Based on the patient's Hx, exam, and Dx evaluation, there is no indication for emergent surgery or inpatient Tx. It is understood by the patient/guardian that if the Sx's persist or worsen they need to return immediately for re-evaluation. 05/31 15:06 Order name: Urine Dipstick--Ancillary (enter results); Complete Time: 16:04 05/31 15:18 Order name: Basic Metabolic Panel; Complete Time: 16:05 05/31 16:05 Interpretation: Normal except: CL 108; GFR 70. 05/31 15:18 Order name: CBC with Diff; Complete Time: 16:04 05/31 16:04 Interpretation: Normal except: EOSINOPHIL % 8.3; EOSA 0.7. 05/31 15:18 Order name: Creatinine for Radiology; Complete Time: 16:04 05/31 15:18 Order name: Hepatic Function; Complete Time: 16:05 05/31 16:05 Interpretation: Normal except: AST 11; A/G 1.0. 05/31 15:18 Order name: Lipase; Complete Time: 16:05 cp 05/31 15:18 Order name: NPO; Complete Time: 15:29 cp 05/31 15:18 Order name: US Abdomen Limited: RUQ/epigastric area cp 05/31 16:05 Order name: XRAY Abdomen With Erect cp 05/31 15:18 Order name: IV Saline Lock; Complete Time: 15:29 cp 05/31 15:18 Order name: Labs collected and sent; Complete Time: 15:29 cp Administered Medications: 15:38 Drug: Pepcid 20 mg Route: IVP; Site: right antecubital; mg2 17:39 Follow up: Response: No adverse reaction; Marked relief of symptoms mg2 15:38 Drug: NS 0.9% 1000 ml Route: IV; Rate: 1 bolus; Site: right antecubital; mg2 17:39 Follow up: Response: No adverse reaction; IV Status: Completed infusion mg2 15:39 Drug: Zofran 4 mg Route: IVP; Site: right antecubital; mg2 17:40 Follow up: Response: No adverse reaction; Marked relief of symptoms mg2 16:01 Drug: TORadol 30 mg Route: IVP; Site: left antecubital; mg2 17:39 Follow up: Response: No adverse reaction mg2 16:44 Drug: GI Cocktail without - (Maalox Suspension 30 ml, Lidocaine Liquid 2 % 15 mg2 ml) Route: PO; 17:39 Follow up: Response: No adverse reaction; Marked relief of symptoms mg2 Disposition: 18:49 Co-signature as Attending Physician, Rhys Servin MD. rn Disposition: 05/31/18 17:22 Discharged to Home. Impression: Unspecified abdominal pain. - Condition is Stable. - Discharge Instructions: Abdominal Pain, Adult, Gastritis, Adult. - Prescriptions for Protonix 40 mg Oral Tablet - take 1 tablet by ORAL route once daily; 30 tablet. - Medication Reconciliation Form, Thank You Letter, Antibiotic Education, Prescription Opioid Use form. - Follow up: Prashant Saldana MD; When: 1 week; Reason: symptoms continue. - Problem is new. - Symptoms have improved. Signatures: Dispatcher [employer] EDMS Rhys Servin MD MD rn Attema, Lee, RN RN la1 Page, Lauri, PA PA cp Gardose, Juan, RN RN mg2 Corrections: (The following items were deleted from the chart) 16:04 16:04 Normal except: EOSINOPHIL % 8.3. cp cp 17:41 17:22 05/31/2018 17:22 Discharged to Home. Impression: Unspecified abdominal pain. mg2 Condition is Stable. Forms are Medication Reconciliation Form, Thank You Letter, Antibiotic Education, Prescription Opioid Use. Follow up: Prashant Saldana; When: 1 week; Reason: symptoms continue. Problem is new. Symptoms have improved. cp
--- NOTE | 2018-05-31 17:22 | ER ---
Nurse's Notes [facility] Name: Mike Daugherty Age: 38 yrs Sex: Male : 1980 Arrival Date: 05/31/2018 Time: 14:48 Bed 23 Private MD: None, None Diagnosis: Unspecified abdominal pain Presentation: 05/31 14:51 Presenting complaint: Patient states: I get headaches and I stared taking Excedrin la1 every day, the same thing happened a few months ago and they put me on a medication (pantoprazole according to chart) due to abd pain and stopped taking it. I stopped taking a few weeks ago but my stomach hurts constantly. My urine is very dark as well. Transition of care: patient was not received from another setting of care. Onset of symptoms was May 31, 2018. Risk Assessment: Do you want to hurt yourself or someone else? Patient reports no desire to harm self or others. Initial Sepsis Screen: Does the patient meet any 2 criteria? No. Patient's initial sepsis screen is negative. Does the patient have a suspected source of infection? No. Patient's initial sepsis screen is negative. Care prior to arrival: None. 14:51 Method Of Arrival: Ambulatory la1 14:51 Acuity: UTE 3 la1 Historical: - Allergies: 14:53 PENICILLINS; la1 - PMHx: 14:53 None; la1 - PSHx: 14:53 Appendectomy; la1 - Immunization history:: Adult Immunizations up to date. - Social history:: Smoking status: Patient uses tobacco products, smokes one pack cigarettes per day. - Ebola Screening: : No symptoms or risks identified at this time. Screenin:27 Abuse screen: Denies threats or abuse. Denies injuries from another. Nutritional mg2 screening: No deficits noted. Tuberculosis screening: No symptoms or risk factors identified. Fall Risk IV access (20 points). Assessment: 15:27 General: Appears in no apparent distress. comfortable, Behavior is calm, cooperative. mg2 Pain: Complains of pain in abdomen Pain does not radiate. Quality of pain is described as aching, Pain began gradually, Is intermittent. Neuro: Level of Consciousness is awake, alert, obeys commands, Oriented to person, place, time, situation. Cardiovascular: Capillary refill < 3 seconds Patient's skin is warm and dry. Respiratory: Airway is patent Respiratory effort is even, unlabored, Respiratory pattern is regular, symmetrical. GI: Reports upper abdominal pain. EENT: No signs and/or symptoms were reported regarding the EENT system. Derm: Skin is intact, is healthy with good turgor, Skin is pink, warm \T\ dry. normal. Musculoskeletal: Circulation, motion, and sensation intact. Capillary refill < 3 seconds. 15:30 GI: Bowel sounds present X 4 quads. Abd is soft and non tender. mg2 17:40 Reassessment: Patient states feeling better. Patient states symptoms have improved. mg2 Vital Signs: 14:53 BP 113 / 76; Pulse 88; Resp 16; Temp 98.4; Pulse Ox 98% on R/A; Weight 86.18 kg; Height la1 5 ft. 7 in. (170.18 cm); Pain 5/10; 16:44 BP 111 / 69; Pulse 66; Resp 18; Pulse Ox 100% on R/A; Pain 2/10; mg2 17:40 BP 112 / 78; Pulse 80; Resp 18; Pulse Ox 100% on R/A; Pain 0/10; mg2 14:53 Body Mass Index 29.76 (86.18 kg, 170.18 cm) la1 ED Course: 14:48 Patient arrived in ED. mr 14:49 None, None is Private Physician. mr 14:52 Triage completed. la1 14:53 Arm band placed on left wrist. la1 15:04 Lauri Guevara PA is PHCP. cp 15:04 Rhys Servin MD is Attending Physician. cp 15:23 Juan Steele, STEWART is Primary Nurse. mg2 15:29 Patient has correct armband on for positive identification. Door closed. Warm blanket mg2 given. 15:29 No provider procedures requiring assistance completed. mg2 15:35 Initial lab(s) drawn, by me, sent to lab. Inserted saline lock: 20 gauge in right lt1 antecubital area, using aseptic technique. 16:01 IV discontinued, intact, bleeding controlled, No redness/swelling at site. Pressure mg2 dressing applied. 16:02 Inserted saline lock: 20 gauge in left antecubital area, using aseptic technique. mg2 16:35 US Abdomen Limited: RUQ/epigastric area In Process Unspecified. EDMS 16:35 Ultrasound completed. Other: pt initially refused exam , requested to speak with sg3 provider first, lauri notified and spoke with pt and agreed to have exam done. 17:17 XRAY Abdomen With Erect In Process Unspecified. EDMS 17:21 Prashant Saldana MD is Referral Physician. cp 17:40 IV discontinued, intact, bleeding controlled, No redness/swelling at site. Pressure mg2 dressing applied. Administered Medications: 15:38 Drug: Pepcid 20 mg Route: IVP; Site: right antecubital; mg2 17:39 Follow up: Response: No adverse reaction; Marked relief of symptoms mg2 15:38 Drug: NS 0.9% 1000 ml Route: IV; Rate: 1 bolus; Site: right antecubital; mg2 17:39 Follow up: Response: No adverse reaction; IV Status: Completed infusion mg2 15:39 Drug: Zofran 4 mg Route: IVP; Site: right antecubital; mg2 17:40 Follow up: Response: No adverse reaction; Marked relief of symptoms mg2 16:01 Drug: TORadol 30 mg Route: IVP; Site: left antecubital; mg2 17:39 Follow up: Response: No adverse reaction mg2 16:44 Drug: GI Cocktail without - (Maalox Suspension 30 ml, Lidocaine Liquid 2 % 15 mg2 ml) Route: PO; 17:39 Follow up: Response: No adverse reaction; Marked relief of symptoms mg2 Outcome: 17:22 Discharge ordered by MD. cp 17:40 Discharged to home ambulatory. mg2 17:40 Condition: stable 17:40 Discharge instructions given to patient, Instructed on discharge instructions, follow up and referral plans. medication usage, Demonstrated understanding of instructions, follow-up care, medications, Prescriptions given X 1. 17:41 Patient left the ED. mg2 Signatures: Dispatcher [employer] EDMI Dolly DumontAndrew RN RN la1 Lauri Guevara PA PA cp Aspen Leiva sg3 Juan Steele RN RN mg2 Cathie Lambert lt1 Corrections: (The following items were deleted from the chart) 14:54 14:51 Presenting complaint: Patient states: I get headaches and I stared taking la1 Excedrin every day, the same thing happened a few months ago and they put me on abd due to abd pain and stopped taking it. I stopped taking a few weeks ago but my stomach hurts constantly. My urine is very dark as well la1
--- NOTE | 2018-05-31 17:28 | RAD REPORT ---
EXAM DESCRIPTION: RAD - Abdomen W Erect - 05/31/2018 5:16 pm CLINICAL HISTORY: Abdominal pain COMPARISON: None. TECHNIQUE: Supine and upright views of the abdomen were obtained. FINDINGS: Bowel gas pattern is nonspecific with no obstruction, free air or pneumatosis. No abnormal calcifications. No soft tissue abnormality. No significant bony finding. IMPRESSION: Negative two-view abdomen examination.
== END 2018-05-31 17:41 | disposition home or self-care (01) ==
LOC: ER 14:45
DX: R10.9 Unspecified abdominal pain (principal); Z88.0 Allergy status to penicillin; F17.210 Nicotine dependence, cigarettes, uncomplicated
CPT/HCPCS: 36415; 74019; 76705; 80048; 80076; 81003; 83690; 85025; 99284; J2405; J7030

== ENCOUNTER 2020-11-06 08:26 | Emergency (ER) | payer SELFPAY ==
--- NOTE | 2020-11-06 10:46 | RAD REPORT ---
EXAM DESCRIPTION: Magdalene Cudara (2 Views)11/06/2020 10:26 am CLINICAL HISTORY: Chest pain COMPARISON: 2019 FINDINGS: The lungs appear clear of acute infiltrate. The heart is normal size IMPRESSION: No acute abnormalities displayed
[2020-11-06 11:10] LABS: Absolute Lymphocytes (CBC) 1.9 K/uL (0.7-4.9); Basophils % 0.7 % (0-1.3); Hematocrit 45.9 % (39.6-49.0); Lymphocytes % 30.5 % (15.3-44.8); MPV 9.5 fL (7.6-11.3); RBC Red Blood Cell Count 5.36 M/uL (4.33-5.43)
[2020-11-06 11:27] LABS: BUN Blood Urea Nitrogen 14 mg/dL (7-18); Bicarbonate 28 mmol/L (21-32); Glucose Level 120 mg/dL (74-106); Potassium 3.6 mmol/L (3.5-5.1); Sodium Level 140 mmol/L (136-145); Troponin (Emerg Dept Use Only) < 0.02 ng/mL (0.0-0.045)
[2020-11-06] MEDS ORDERED: NA CHLORIDE 0.9% 1,000 ML ONE (12:56)
--- NOTE | 2020-11-06 13:03 | RAD REPORT ---
EXAM DESCRIPTION: CT - Chest For Pe Angio - 11/06/2020 12:41 pm CLINICAL HISTORY: Chest pain. CHEST PAIN COMPARISON: No comparisons TECHNIQUE: CT angiogram of the pulmonary arteries was performed with MIP. All CT scans are performed using dose optimization technique as appropriate and may include automated exposure control or mA/KV adjustment according to patient size. FINDINGS: No evidence of pulmonary thromboembolism. No acute aortic finding demonstrated. Aberrant right subclavian artery noted, normal variant. Interstitial lung opacities are present bilaterally, mild. No focal consolidation to suggest pneumoni a. No significant pericardial or pleural fluid. No concerning bony finding. IMPRESSION: No evidence of pulmonary thromboembolism.
--- NOTE | 2020-11-06 13:05 | EDPHYS ---
Physician Documentation [facility] Name: Mike Daugherty Age: 40 yrs Sex: Male : 1980 Arrival Date: 11/06/2020 Time: 08:33 Bed 9 Private MD: ED Physician Lauri Araiza HPI: 11/06 10:41 This 40 yrs old Male presents to ER via Ambulatory with complaints of L Chest kb Wall Pain, Body Aches. Historical: - Allergies: 08:44 PENICILLINS; ll1 - PMHx: 08:44 None; ll1 - PSHx: 08:44 None; ll1 - Immunization history:: Client reports receiving the 1st dose of the Covid vaccine, Flu vaccine is not up to date. - Social history:: Smoking status: Patient/guardian denies using tobacco, the patient reports quitting approximately 1.5 years ago. ROS: 10:40 Constitutional: Negative for fever, chills, and weight loss. kb 10:40 ENT: Positive for sneezing. 10:40 Cardiovascular: Positive for chest pain, of the anterior aspect of left upper chest. 10:40 MS/extremity: Positive for pain, of the right antecubital area and right elbow. 10:40 Neuro: Positive for lightheadedness when laughing. 10:40 All other systems are negative. Exam: 10:40 Constitutional: This is a well developed, well nourished patient who is awake, alert, kb and in no acute distress. Head/Face: Normocephalic, atraumatic. ENT: Moist Mucous membranes Cardiovascular: Regular rate and rhythm with a normal S1 and S2. No gallops, murmurs, or rubs. No pulse deficits. Respiratory: Respirations even and unlabored. No increased work of breathing, no retractions or nasal flaring. Abdomen/GI: Soft, non-tender. No distention Skin: Warm, dry with normal turgor. Normal color. MS/ Extremity: Pulses equal, no cyanosis. Neurovascular intact. Full, normal range of motion. Neuro: Awake and alert, GCS 15, oriented to person, place, time, and situation. Moves all extremities. Normal gait. 10:40 ECG was reviewed by the Attending Physician. 10:40 Psych: Behavior/mood is anxious. Vital Signs: 08:41 BP 127 / 93; Pulse 75; Resp 17; Temp 97.3; Pulse Ox 98% ; Weight 90.72 kg; Height 5 ft. ll1 7 in. (170.18 cm); Pain 9/10; 13:31 BP 122 / 83; Pulse 70; Resp 16; Pulse Ox 100% ; vg1 08:41 Body Mass Index 31.32 (90.72 kg, 170.18 cm) ll1 MDM: 10:20 Patient medically screened. kb 10:40 Data reviewed: vital signs, nurses notes. Data interpreted: Pulse oximetry: on room air kb is 98 %. Interpretation: normal. 12:20 Counseling: I had a detailed discussion with the patient and/or guardian regarding: the kb historical points, exam findings, and any diagnostic results supporting the discharge/admit diagnosis, lab results, radiology results, the need for outpatient follow up, a family practitioner, to return to the emergency department if symptoms worsen or persist or if there are any questions or concerns that arise at home. 12:23 ED course: Pt requests a CT to rule out PE. kb 11/06 10:42 Order name: CBC with Diff; Complete Time: 11:20 kb 11/06 10:09 Order name: Chest Pa And Lat (2 Views) XRAY; Complete Time: 10:47 kb 11/06 10:42 Order name: Basic Metabolic Panel; Complete Time: 11:28 kb 11/06 10:42 Order name: Troponin (emerg Dept Use Only); Complete Time: 11:28 kb 11/06 12:19 Order name: SARS-COV-2 RT PCR; Complete Time: 12:20 EDMS 11/06 10:09 Order name: EKG; Complete Time: 10:10 kb 11/06 10:09 Order name: EKG - Nurse/Tech; Complete Time: 10:38 kb 11/06 10:42 Order name: IV Start; Complete Time: 10:56 kb 11/06 12:24 Order name: CT Chest For PE Angio; Complete Time: 13:04 kb EC:40 Rate is 61 beats/min. Rhythm is regular. QRS [place] is Normal. VA interval is normal at kb 176 msec. QRS interval is normal at 80 msec. QT interval is normal at 374 msec. Administered Medications: 12:32 Drug: NS 0.9% 1000 ml Route: IV; Rate: 1000 ml; Site: right antecubital; vg1 13:30 Follow up: IV Status: Completed infusion; IV Intake: 1000ml vg1 Disposition: 15:14 Co-signature as Attending Physician, Lauri Araiza MD I agree with the assessment and john plan of care. Disposition Summary: 11/06/20 13:05 Discharge Ordered Location: Home kb Condition: Stable kb Diagnosis - Chest pain, unspecified kb Followup: kb - With: Emergency Department - When: As needed - Reason: Worsening of condition Followup: kb - With: Private Physician - When: 2 - 3 days - Reason: Recheck today's complaints, Continuance of care, Re-evaluation by your physician Discharge Instructions: - Discharge Summary Sheet kb - Nonspecific Chest Pain, Adult, [id number] kb Forms: - Medication Reconciliation Form kb - Thank You Letter kb - Antibiotic Education kb - Prescription Opioid Use kb Signatures: Dispatcher [employer] EDGely Viera, VIKTORIAC LEAD BURNER HELPER-Lauri Chen MD MD cha Garcia, Victoria RN RN vg1 Corine Bourne RN RN ll1 Corrections: (The following items were deleted from the chart) 11:25 10:10 CORONAVIRUS+MR.LAB.BRZ ordered. EDAR EDMS
--- NOTE | 2020-11-06 13:05 | ER ---
Nurse's Notes [facility] Name: Mike Daugherty Age: 40 yrs Sex: Male : 1980 Arrival Date: 11/06/2020 Time: 08:33 Bed 9 Private MD: Diagnosis: Chest pain, unspecified Presentation: 11/06 08:41 Chief complaint: Patient states: L sided CP for over 2 weeks after getting his first ll1 Pfizer shot, due for 2nd shot today. Wants to get checked before getting his second shot. + sneezing, elbows achy, PRATT since. No fever or cough. Coronavirus screen: Vaccine status: Patient reports receiving the 1st dose of the Covid vaccine. Date October 13, 2020. Ebola Screen: Patient denies travel to an Ebola-affected area in the 21 days before illness onset. Initial Sepsis Screen: Does the patient meet any 2 criteria? No. Patient's initial sepsis screen is negative. Does the patient have a suspected source of infection? No. Patient's initial sepsis screen is negative. Risk Assessment: Do you want to hurt yourself or someone else? Patient reports no desire to harm self or others. Onset of symptoms was October 15, 2020. 08:41 Method Of Arrival: Ambulatory ll1 08:41 Acuity: UTE 3 ll1 Historical: - Allergies: 08:44 PENICILLINS; ll1 - PMHx: 08:44 None; ll1 - PSHx: 08:44 None; ll1 - Immunization history:: Client reports receiving the 1st dose of the Covid vaccine, Flu vaccine is not up to date. - Social history:: Smoking status: Patient/guardian denies using tobacco, the patient reports quitting approximately 1.5 years ago. Screenin:56 Abuse screen: Denies threats or abuse. Nutritional screening: No deficits noted. vg1 Tuberculosis screening: No symptoms or risk factors identified. Fall Risk None identified. Assessment: 10:43 General: Appears in no apparent distress. comfortable, Behavior is calm, cooperative. vg1 Pain: Complains of pain in anterior aspect of left upper chest Pain currently is 6 out of 10 on a pain scale. Neuro: Level of Consciousness is awake, alert, obeys commands, Oriented to person, place, time, situation. Cardiovascular: Patient's skin is warm and dry. Respiratory: Reports cough that is dry, Airway is patent Respiratory effort is even, unlabored. GI: Patient currently denies diarrhea, nausea, vomiting. : No signs and/or symptoms were reported regarding the genitourinary system. EENT: No signs and/or symptoms were reported regarding the EENT system. Derm: Skin is intact, is healthy with good turgor. Musculoskeletal: Circulation, motion, and sensation intact. 12:56 Reassessment: Patient appears in no apparent distress at this time. No changes from vg1 previously documented assessment. Patient and/or family updated on plan of care and expected duration. Pain level reassessed. Patient is alert, oriented x 3, equal unlabored respirations, skin warm/dry/pink. 13:30 Reassessment: Patient appears in no apparent distress at this time. Patient and/or vg1 family updated on plan of care and expected duration. Pain level reassessed. Patient is alert, oriented x 3, equal unlabored respirations, skin warm/dry/pink. Patient denies pain at this time. Patient states feeling better. Vital Signs: 08:41 BP 127 / 93; Pulse 75; Resp 17; Temp 97.3; Pulse Ox 98% ; Weight 90.72 kg; Height 5 ft. ll1 7 in. (170.18 cm); Pain 9/10; 13:31 BP 122 / 83; Pulse 70; Resp 16; Pulse Ox 100% ; vg1 08:41 Body Mass Index 31.32 (90.72 kg, 170.18 cm) ll1 ED Course: 08:33 Patient arrived in ED. ds1 08:41 Arm band placed on. ll1 08:44 Triage completed. ll1 10:20 Gely Ortega FNP-C is PHCP. kb 10:20 Lauri Araiza MD is Attending Physician. kb 10:26 Chest Pa And Lat (2 Views) XRAY In Process Unspecified. EDMS 10:38 Patient has correct armband on for positive identification. Bed in low position. Call [facility] light in reach. 10:38 EKG done, by ED staff, reviewed by Gely GILL COVID swab sent to lab. 5 10:40 Haydee Harrington, RN is Primary Nurse. 1 10:56 Initial lab(s) drawn, by pr, sent to lab. Inserted saline lock: 20 gauge in right vg1 antecubital area, using aseptic technique. Blood collected. 12:41 CT Chest For PE Angio In Process Unspecified. EDMS 13:31 No provider procedures requiring assistance completed. IV discontinued, intact, vg1 bleeding controlled, No redness/swelling at site. Pressure dressing applied. Administered Medications: 12:32 Drug: NS 0.9% 1000 ml Route: IV; Rate: 1000 ml; Site: right antecubital; vg1 13:30 Follow up: IV Status: Completed infusion; IV Intake: 1000ml vg1 Intake: 13:30 IV: 1000ml; Total: 1000ml. vg1 Outcome: 13:05 Discharge ordered by . bobbi 13:31 Discharged to home ambulatory. vg1 13:31 Condition: stable 13:31 Discharge instructions given to patient, Instructed on discharge instructions, follow up and referral plans. Demonstrated understanding of instructions, follow-up care. 13:31 Patient left the ED. vg1 Signatures: Dispatcher [employer] EDGely Viera, AIRCRAFT MAGNETO MECHANIC-C AIRCRAFT MAGNETO MECHANIC-Krystal Martins 1 Lorelei Cruz 5 Haydee Harrington, RN RN 1 Corine Bourne RN RN ll1 Corrections: (The following items were deleted from the chart) 11:25 10:40 CORONAVIRUS+MR.LAB.ED drawn and sent. [address]
[2020-11-06 13:38] VITALS: TEMP 97.3
[2020-11-06 13:40] VITALS: BP 122/83; O2SAT 100
--- NOTE | 2020-11-07 10:58 | EKG ---
Test Date: 2020-11-06 Test Time: 10:33:46 Cylinder Checker: ELENA MEASUREMENT RESULTS: Intervals: Rate: 61 MO: 176 QRSD: 80 QT: 374 QTc: 376 [place]: P: 45 MO: 176 QRS: 55 T: 28 INTERPRETIVE STATEMENTS: Normal sinus rhythm Normal ECG Compared to ECG 03/21/2005 14:10:00 No significant changes Electronically Signed On 11-07-20 10:54:17 CDT by Nando Miller
== END 2020-11-06 13:31 | disposition home or self-care (01) ==
LOC: ER 08:26
DX: R07.9 Chest pain, unspecified (principal); Z20.822 Contact with and (suspected) exposure to COVID-19; Z88.0 Allergy status to penicillin
CPT/HCPCS: 36415; 71046; 71275; 80048; 84484; 85025; 93005; 96360; 99284; J7030; Q9967; U0003

== ENCOUNTER 2021-03-28 09:25 | Emergency (ER) | payer SELFPAY ==
--- NOTE | 2021-03-28 10:17 | EDPHYS ---
Physician Documentation [facility] Name: Mike Daugherty Age: 40 yrs Sex: Male : 1980 Arrival Date: 03/28/2021 Time: 09:30 Bed Waiting Private MD: ED Physician Toro Turner HPI: 03/28 10:12 This 40 yrs old Male presents to ER via Ambulatory with complaints of r/o covid. cp 10:12 Patient presents to ED with request for COVID-19 test. Patient reports he was sent home cp from work due to close contact with recently testing positive for COVID-19. Patient denies any symptoms. Historical: - Allergies: 09:52 PENICILLINS; jd3 - Home Meds: 09:52 None [Active]; jd3 - PMHx: 09:52 None; jd3 - PSHx: 09:52 None; jd3 - Immunization history:: Adult Immunizations up to date, Client reports receiving the 2nd dose of the Covid vaccine, Flu vaccine is not up to date. - Social history:: Smoking status: Patient/guardian denies using tobacco, the patient reports quitting approximately 2 years ago. ROS: 10:14 All other systems are negative. cp Exam: 10:14 Head/Face: Normocephalic, atraumatic. cp 10:14 Constitutional: The patient appears in no acute distress, alert, awake, comfortable, non-toxic, well developed, well nourished. 10:14 Cardiovascular: Rate: normal. 10:14 Respiratory: the patient does not display signs of respiratory distress, Respirations: normal, no use of accessory muscles, no retractions, labored breathing, is not present. 10:14 Neuro: Orientation: to person, place \T\ time. Mentation: is normal. Vital Signs: 09:52 BP 113 / 90; Pulse 77; Resp 18 S; Temp 98.4(TE); Pulse Ox 98% on R/A; Weight 91.17 kg jd3 (R); Height 5 ft. 7 in. (170.18 cm) (R); Pain 0/10; 09:52 Body Mass Index 31.48 (91.17 kg, 170.18 cm) jd3 MDM: 10:15 Data reviewed: vital signs, nurses notes, and as a result, I will discharge patient. cp 10:16 Patient medically screened. cp 10:16 Differential diagnosis: viral Infection, bacterial infection, URI, bronchitis, cp pneumonia. Administered Medications: No medications were administered Disposition: 10:20 Chart complete. cp 18:40 Co-signature as Attending Physician, Toro Turner MD. ma2 Disposition Summary: 03/28/21 10:16 Discharge Ordered Location: Home cp Problem: new cp Symptoms: are unchanged cp Condition: Stable cp Diagnosis - Encounter for screening for other viral diseases - COVID-19(03/28/21 10:16) cp Followup: cp - With: Private Physician - When: 1 - 2 days - Reason: Worsening of condition Discharge Instructions: - Discharge Summary Sheet cp - COVID-19 Frequently Asked Questions cp - 3 Vega Steps to Take While Waiting for Your COVID-19 Test Result - CDC cp Forms: - Medication Reconciliation Form cp - Thank You Letter cp - Antibiotic Education cp - Prescription Opioid Use cp Signatures: Dispatcher [employer] EDMS Lauri Guevara PA PA cp Jovanni Mehta RN RN jd3 Alzahri, Mohammad, MD MD ma2 Corrections: (The following items were deleted from the chart) 10:16 10:16 Encounter for screening for other viral diseases cp cp
--- NOTE | 2021-03-28 10:17 | ER ---
Nurse's Notes [facility] Name: Mike Daugherty Age: 40 yrs Sex: Male : 1980 Arrival Date: 03/28/2021 Time: 09:30 Bed Waiting Private MD: Diagnosis: Encounter for screening for other viral [id number] Presentation: 03/28 09:50 Chief complaint: Patient states: "My is COVID +. I am having some headache or jd3 sinus pressure.". Coronavirus screen: headache, Client presents with at least one sign or symptom that may indicate coronavirus-19. Standard/surgical mask placed on the client. Provider contacted for isolation considerations. Ebola Screen: No symptoms or risks identified at this time. Initial Sepsis Screen: Does the patient meet any 2 criteria? No. Patient's initial sepsis screen is negative. Does the patient have a suspected source of infection? No. Patient's initial sepsis screen is negative. Risk Assessment: Do you want to hurt yourself or someone else? Patient reports no desire to harm self or others. Onset of symptoms was March 28, 2021. 09:50 Method Of Arrival: Ambulatory jd3 09:50 Acuity: UTE 4 jd3 Historical: - Allergies: 09:52 PENICILLINS; jd3 - Home Meds: 09:52 None [Active]; jd3 - PMHx: 09:52 None; jd3 - PSHx: 09:52 None; jd3 - Immunization history:: Adult Immunizations up to date, Client reports receiving the 2nd dose of the Covid vaccine, Flu vaccine is not up to date. - Social history:: Smoking status: Patient/guardian denies using tobacco, the patient reports quitting approximately 2 years ago. Screenin:20 Abuse screen: Denies threats or abuse. Nutritional screening: No deficits noted. jd3 Tuberculosis screening: No symptoms or risk factors identified. Fall Risk Ambulatory Aid- None/Bed Rest/Nurse Assist (0 pts). Gait- Normal/Bed Rest/Wheelchair (0 pts) Mental Status- Oriented to own ability (0 pts). Total Alexander Fall Scale indicates No Risk (0-24 pts). Assessment: 10:20 General: Appears in no apparent distress. comfortable, Behavior is calm, cooperative, jd3 appropriate for age. Pain: Complains of pain in head Quality of pain is described as aching. Neuro: Level of Consciousness is awake, alert, obeys commands, Oriented to person, place, time, situation. Cardiovascular: Capillary refill < 3 seconds Patient's skin is warm and dry. Respiratory: Airway is patent Respiratory effort is even, unlabored, Respiratory pattern is regular, symmetrical, Denies cough, shortness of breath. GI: No signs and/or symptoms were reported involving the gastrointestinal system. : No signs and/or symptoms were reported regarding the genitourinary system. EENT: No signs and/or symptoms were reported regarding the EENT system. Derm: Skin is intact, Skin is dry, Skin is normal, Skin temperature is warm. Vital Signs: 09:52 BP 113 / 90; Pulse 77; Resp 18 S; Temp 98.4(TE); Pulse Ox 98% on R/A; Weight 91.17 kg jd3 (R); Height 5 ft. 7 in. (170.18 cm) (R); Pain 0/10; 09:52 Body Mass Index 31.48 (91.17 kg, 170.18 cm) jd3 ED Course: 09:30 Patient arrived in ED. as 09:52 Triage completed. jd3 09:53 Arm band placed on. jd3 10:12 Lauri Guevara PA is PHCP. cp 10:12 Toro Turner MD is Attending Physician. cp 10:21 Patient has correct armband on for positive identification. Bed in low position. Call jd3 light in reach. Side rails up X 1. Pulse ox on. NIBP on. 10:21 No provider procedures requiring assistance completed. Patient did not have IV access jd3 during this emergency room visit. Administered Medications: No medications were administered Outcome: 10:16 Discharge ordered by MD. cp 10:21 Discharged to home ambulatory, with family. jd3 10:21 Condition: stable 10:21 Discharge instructions given to patient, Instructed on discharge instructions, follow up and referral plans. Demonstrated understanding of instructions, follow-up care. 10:21 Patient left the ED. jd3 Signatures: Smita Cruz Corey, PA PA cp Davies, Jonathon, RN RN jd3
[2021-03-28 10:26] VITALS: BP 113/90; TEMP 98.4; O2SAT 98
== END 2021-03-28 10:21 | disposition home or self-care (01) ==
LOC: ER 09:25
DX: Z20.822 Contact with and (suspected) exposure to COVID-19 (principal)
CPT/HCPCS: 87636; 99283

== ENCOUNTER 2021-05-12 22:32 | Inpatient (IN) | payer SELFPAY ==
[2021-05-12] MEDS ORDERED: NA CHLORIDE 0.9% 1,000 ML ONE (23:12)
[2021-05-12] MEDS ORDERED: IBUPROFEN 400 MG TAB ONE (23:12)
[2021-05-12 23:35] LABS: Hematocrit 43.8 % (39.6-49.0); Lymphocytes % 6.3 % (15.3-44.8); MPV 10.1 fL (7.6-11.3); RBC Red Blood Cell Count 5.13 M/uL (4.33-5.43)
[2021-05-12 23:52] LABS: Potassium 3.3 mmol/L (3.5-5.1)
[2021-05-13 00:10] LABS: SARS-COV-2 RT PCR NEGATIVE (NEGATIVE)
[2021-05-13] MEDS ORDERED: AZITHROMYCIN 500 MG INJ IVPB ONE (00:17)
[2021-05-13] MEDS ORDERED: NA CHLORIDE 0.9% 250 ML ONE (00:17)
--- NOTE | 2021-05-13 00:51 | EDPHYS ---
Physician Documentation [facility] Name: Mike Daugherty Age: 41 yrs Sex: Male : 1980 Arrival Date: 05/12/2021 Time: 22:38 Bed 16 Private MD: ED Physician Rhys Servin HPI: 05/12 22:57 This 41 yrs old Male presents to ER via Ambulatory with complaints of Fever, Cough, rn Body aches. 22:57 The patient reports fever, not measured (subjective). Onset: The symptoms/episode rn began/occurred this morning. Modifying factors: there are no obvious modifying factors. Associated signs and symptoms: Pertinent positives: chills, cough, diarrhea, myalgias, runny nose, shortness of breath, sore throat, Pertinent negatives: abdominal pain, altered mental status, earache, skin rash. Severity of symptoms: At their worst the symptoms were moderate in the emergency department the symptoms are unchanged. The patient has not experienced similar symptoms in the past. Reports began feeling sick this AM, woke up with fever/chills/cough/sore throat/myalgias. Has been working a lot, recently went to [employer], and went out last night. Significant other not sick. Non-smoker. No medical problems. . Historical: - Allergies: 22:47 PENICILLINS; st1 - PMHx: 22:47 None; st1 - Immunization history:: Adult Immunizations not up to date, Flu vaccine is not up to date. Patient has never been vaccinated. - Social history:: Smoking status: Patient denies any tobacco usage or history of. Patient/guardian denies using alcohol, street drugs, IV drugs. - Family history:: not pertinent. - Hospitalizations: : No recent hospitalization is reported. ROS: 22:57 Constitutional: + fever and chills Eyes: Negative for injury, pain, redness, and rn forensic, ENT: + congestion and sore throat Neck: Negative for injury, pain, and swelling, Cardiovascular: Negative for chest pain, palpitations, and edema, Respiratory: + cough and sob Abdomen/GI: Negative for abdominal pain, nausea, vomiting, diarrhea, and constipation, Back: Negative for injury and pain, : Negative for injury, bleeding, discharge, and swelling, MS/Extremity: Negative for injury and deformity, Skin: Negative for injury, rash, and discoloration, Neuro: + headache and generalized weakness Exam: 22:57 Constitutional: This is a well developed, well nourished patient who is awake, alert, rn mild tachypnea Head/Face: Normocephalic, atraumatic. Eyes: Periorbital areas with no swelling, redness, or edema. ENT: dry MM Neck: Trachea midline, no masses palpated. Supple, full range of motion without nuchal rigidity, or vertebral point tenderness. No Meningismus. Cardiovascular: tachycardic, regular Respiratory: Mild tachypnea, no retractions Abdomen/GI: soft, non-tender Skin: Warm, dry MS/ Extremity: Pulses equal, no cyanosis. Neuro: Awake and alert, GCS 15, oriented to person, place, time, and situation. Cranial nerves II-XII grossly intact. Motor strength 5/5 in all extremities. Sensory grossly intact. Vital Signs: 22:45 BP 127 / 90; Pulse 113; Resp 20; Temp 100.9; Pulse Ox 96% on R/A; Weight 90.72 kg; st1 Height 5 ft. 7 in. (170.18 cm); Pain 10/10; 23:16 BP 127 / 90; Pulse 104; Resp 24; Temp 99.1(O); Pulse Ox 96% on R/A; Pain 5/10; jory 0313 00:04 BP 109 / 67; Pulse 98; Resp 22; Pulse Ox 97% on R/A; jory 00:40 BP 110 / 64; Pulse 98; Resp 22; Pulse Ox 97% on R/A; Pain 3/10; jory 01:22 BP 129 / 70; Pulse 88; Resp 24; Temp 98.3(O); Pulse Ox 97% on R/A; Pain 0/10; jory 03:10 BP 112 / 70; Pulse 88; Resp 18; Temp 98.3; Pulse Ox 96% on R/A; jory 05/12 22:45 Body Mass Index 31.32 (90.72 kg, 170.18 cm) st1 MDM: 05/12 22:43 Patient medically screened. rn 05/13 00:48 Differential diagnosis: viral Infection, bacterial infection, URI, bronchitis, rn pneumonia. 00:49 Data reviewed: vital signs, nurses notes, lab test result(s), radiologic studies, plain rn films, and as a result, I will admit patient. Counseling: I had a detailed discussion with the patient and/or guardian regarding: the historical points, exam findings, and any diagnostic results supporting the discharge/admit diagnosis, lab results, radiology results, the need for further work-up and treatment in the hospital. Response to treatment: the patient's symptoms have mildly improved after treatment, and as a result, I will admit patient. Admission orders: after a detailed discussion of the patient's condition and case, the admit orders are written by me. ED course: Pt with bilateral bronchopneumonia, flu neg, covid neg, still with tachypnea and appears more ill than his vitals appear, will admit for further care and observation.. 05/12 22:54 Order name: COVID-19/FLU A+B (Document "Date of Onset" if Symptomatic); Complete Time: rn 00:30 05/12 22:54 Order name: Strep; Complete Time: 00:30 rn 05/12 22:54 Order name: CBC with Diff; Complete Time: 23:52 rn 05/12 22:54 Order name: Basic Metabolic Panel; Complete Time: 00:05 rn 05/12 22:54 Order name: Procalcitonin; Complete Time: 00:35 rn 05/12 22:54 Order name: Blood Culture Adult (2) rn 05/12 22:54 Order name: XRAY Chest (1 view) rn 05/12 22:54 Order name: IV Start; Complete Time: 23:07 rn 05/13 00:18 Order name: Throat Culture EDMS Administered Medications: 05/12 23:16 Drug: NS 0.9% 1000 ml Route: IV; Rate: 1000 ml; Site: left antecubital; jory 23:16 Drug: Motrin (ibuprofen) 800 mg Route: PO; jory 05/13 00:22 Drug: Zithromax (azithromycin) 500 mg Route: IVPB; Infused Over: 1 hrs; Site: left jory antecubital; 01:51 Follow up: IV Status: Completed infusion jory 00:53 Drug: Tamiflu (oseltamivir) 75 mg Route: PO; jory 01:09 Follow up: Response: No adverse reaction jory Disposition Summary: 05/13/21 00:50 Hospitalization Ordered Provider: Darrion Gaines rn Condition: Stable rn Problem: new rn Symptoms: have improved rn Bed/Room Type: Standard rn Hospitalization Status: Observation(05/13/21 00:50) rn Location: Telemetry/MedSurg (observation)(05/13/21 00:50) rn Room Assignment: [facility](05/13/21 03:00) Diagnosis - Bronchopneumonia, unspecified organism rn - Dyspnea, unspecified rn Forms: - Medication Reconciliation Form rn - SBAR form rn Signatures: Dispatcher [employer] EDLiz Aponte RN Rhys Garcia MD MD rn O'Farrell, Brenda, RN Flower Aldana, RN RN st1 Corrections: (The following items were deleted from the chart) 00:50 00:50 Inpatient Admission rn rn 00:50 00:50 Telemetry/MedSurg (Inpatient) rn rn 00:50 00:50 rn rn 03:00 00:50 rn jeannie
--- NOTE | 2021-05-13 00:51 | ER ---
Nurse's Notes [facility] Name: Mike Daugherty Age: 41 yrs Sex: Male : 1980 Arrival Date: 05/12/2021 Time: 22:38 Bed 16 Private MD: Diagnosis: Bronchopneumonia, unspecified organism;Dyspnea, unspecified Presentation: 05/12 22:45 Chief complaint: Patient states: Body aches, sore throat and fever since 0800 [address] am. st1 Coronavirus screen: Vaccine status: Patient reports receiving the 2nd dose of the covid vaccine. [employer]. Ebola Screen: No symptoms or risks identified at this time. Initial Sepsis Screen: Does the patient meet any 2 criteria? No. Patient's initial sepsis screen is negative. Does the patient have a suspected source of infection? No. Patient's initial sepsis screen is negative. Risk Assessment: Do you want to hurt yourself or someone else? Patient reports no desire to harm self or others. Onset of symptoms was May 12, 2021. 22:45 Method Of Arrival: Ambulatory st1 22:45 Acuity: UTE 3 st1 Triage Assessment: 22:47 General: Appears in no apparent distress. distressed, uncomfortable, slender, well st1 groomed, well developed, Behavior is calm, cooperative. Pain: Complains of pain in Generalized body pain. Historical: - Allergies: 22:47 PENICILLINS; st1 - PMHx: 22:47 None; st1 - Immunization history:: Adult Immunizations not up to date, Flu vaccine is not up to date. Patient has never been vaccinated. - Social history:: Smoking status: Patient denies any tobacco usage or history of. Patient/guardian denies using alcohol, street drugs, IV drugs. - Family history:: not pertinent. - Hospitalizations: : No recent hospitalization is reported. Screenin:48 Abuse screen: Denies threats or abuse. Nutritional screening: No deficits noted. st1 Tuberculosis screening: No symptoms or risk factors identified. Fall Risk None identified. No fall in past 12 months (0 pts). No secondary diagnosis (0 pts). IV access (20 points). Ambulatory Aid- None/Bed Rest/Nurse Assist (0 pts). Gait- Normal/Bed Rest/Wheelchair (0 pts) Mental Status- Oriented to own ability (0 pts). Total Alexander Fall Scale indicates No Risk (0-24 pts). Assessment: 23:17 Reassessment: Patient appears in no apparent distress at this time. No changes from jory previously documented assessment. The pt reports "feeling achy, tired, a scratchy throat" x 1 day. He is cooperative and pleasant, as well as, his , who is at bedside. 23:20 General: CXR is being performed, now. . jory 05/13 00:47 General: The MD explained to the pt and his that he is to be admitted for jory observation. We will be waiting for a bed. . 03:12 General: I attempted to call report, but they said that the room (209) wasn't clean. jory She said she would have Cosmo call me back. . 03:48 General: I gave report to Cosmo and he said that they are still cleaning the room and jory he would call after it is complete. . Vital Signs: 05/12 22:45 BP 127 / 90; Pulse 113; Resp 20; Temp 100.9; Pulse Ox 96% on R/A; Weight 90.72 kg; st1 Height 5 ft. 7 in. (170.18 cm); Pain 10/10; 23:16 BP 127 / 90; Pulse 104; Resp 24; Temp 99.1(O); Pulse Ox 96% on R/A; Pain 5/10; jory 05/13 00:04 BP 109 / 67; Pulse 98; Resp 22; Pulse Ox 97% on R/A; jory 00:40 BP 110 / 64; Pulse 98; Resp 22; Pulse Ox 97% on R/A; Pain 3/10; jory 01:22 BP 129 / 70; Pulse 88; Resp 24; Temp 98.3(O); Pulse Ox 97% on R/A; Pain 0/10; jory 03:10 BP 112 / 70; Pulse 88; Resp 18; Temp 98.3; Pulse Ox 96% on R/A; jory 05/12 22:45 Body Mass Index 31.32 (90.72 kg, 170.18 cm) st1 ED Course: 05/12 22:38 Patient arrived in ED. wm 22:42 Ofelia Mao RN is Primary Nurse. jory 22:43 Rhys Servin MD is Attending Physician. rn 22:47 Triage completed. st1 22:47 Arm band placed on right wrist. st1 22:48 Patient has correct armband on for positive identification. Bed in low position. Call st1 light in reach. Side rails up X 1. 23:07 Blood Culture Adult (2) Sent. jory 23:07 Procalcitonin Sent. jory 23:07 Basic Metabolic Panel Sent. jory 23:07 CBC with Diff Sent. jory 23:07 Strep Sent. jory 23:07 COVID-19/FLU A+B (Document "Date of Onset" if Symptomatic) Sent. jory 23:19 No provider procedures requiring assistance completed. jory 23:25 XRAY Chest (1 view) In Process Unspecified. EDMS 05/13 00:03 Blood Culture Adult (2) Sent. jory 00:04 Procalcitonin Sent. jory 00:04 COVID-19/FLU A+B (Document "Date of Onset" if Symptomatic) Sent. jory 00:46 Throat Culture Sent. jory 00:50 Darrion Gaines is Hospitalizing Provider. rn 01:23 Patient admitted, IV remains in place. jory Administered Medications: 05/12 23:16 Drug: NS 0.9% 1000 ml Route: IV; Rate: 1000 ml; Site: left antecubital; jory 23:16 Drug: Motrin (ibuprofen) 800 mg Route: PO; jory 05/13 00:22 Drug: Zithromax (azithromycin) 500 mg Route: IVPB; Infused Over: 1 hrs; Site: left jory antecubital; 01:51 Follow up: IV Status: Completed infusion jory 00:53 Drug: Tamiflu (oseltamivir) 75 mg Route: PO; jory 01:09 Follow up: Response: No adverse reaction jory Outcome: 05/12 23:19 Condition: stable jory 05/13 00:50 Decision to Hospitalize by Provider. rn 01:23 Admitted to jory 04:12 Patient left the ED. jory Signatures: Dispatcher [employer] EDMS Rhys Servin MD MD rn Marsh, Wendy wm O'Farrell, Brenda RN Flower Aldana RN RN st1
[2021-05-13] MEDS ORDERED: OSELTAMIVIR 75 MG CAP ONE (00:54)
--- NOTE | 2021-05-13 01:35 | P.HP ---
Certification for Inpatient Patient admitted to: Observation With expected LOS: <2 Midnights Patient will require the following post-hospital care: None Practitioner: I am a practitioner with admitting privileges, knowledge of patient current condition, hospital course, and medical plan of care. Services: Services provided to patient in accordance with Admission requirements found in Title 42 Section 412.3 of the Code of Federal Regulations Patient History Date of Service: 05/13/21 Primary Care Provider: None Reason for admission: Pneumoniabilateral History of Present Illness: Patient is a 41-year-old male with no medical problems who presented to the ED with complaints of cough, nausea, weakness, stuffy nose, body aches, diaphoresis that began approximately 12 hours ago. Patient's Covid, flu, strep test were all negative. Vital signs within normal limits. Labs remarkable for WBC 15.3, potassium 3.3, creatinine 1.41, pro-Riley 0.09. Chest x-ray showed mild coarse bibasilar opacities may be related to developing bronchopneumonia. Clinical picture suggest flu most likely. Testing could be negative due to symptoms just beginning today. Patient was given Tamiflu, azithromycin, liter of normal saline, and ibuprofen in the ED. Upon my assessment, patient looks uncomfortable and ill and reports still feeling poorly. ED provider wishes to admit patient for observation. Allergies Penicillins Allergy (Verified 07/07/12 13:06) Hives Home medications list reviewed: Yes (NA) - Past Medical/Surgical History Diabetic: No Past Medical History: Patient denies medical history Past Surgical History: Patient denies surgical history Psychosocial/ Personal History: Patient lives at home with his - Family History Mother -: Cancer Father -: Diabetes - Social History Smoking Status: Former smoker Alcohol use: Yes CD- Drugs: No Caffeine use: Yes Place of Residence: Home Review of Systems General: Fever, Sweats, Weakness, Malaise, As per HPI Respiratory: Cough, Shortness of Breath Gastrointestinal: Nausea Physical Examination - Physical Exam General: Alert, In no apparent distress, Other (Diaphoretic) HEENT: Atraumatic, PERRLA, Other (Dry mucous membrane), EOMI, Sclerae nonicteric Neck: Supple, 2+ carotid pulse no bruit, No LAD, Without JVD or thyroid abnormality Respiratory: Clear to auscultation bilaterally, Normal air movement Cardiovascular: Regular rate/rhythm, Normal S1 S2 Gastrointestinal: Normal bowel sounds, No tenderness Musculoskeletal: No tenderness Integumentary: No rashes Neurological: Normal speech, Normal strength at 5/5 x4 extr, Normal tone, Normal affect - Studies Laboratory Data (last 24 hrs) 05/12/21 23:05: WBC 15.30 H, Hgb 14.2, Hct 43.8, Plt Count 213 05/12/21 22:59: Sodium 138, Potassium 3.3 L, BUN 12, Creatinine 1.41 H, Glucose 153 H Microbiology Data (last 24 hrs): 05/12/21 22:54 Throat Group A Streptococcus Rapid Screen - Final Assessment and Plan - Problems (Diagnosis) (1) Bronchopneumonia Current Visit: Yes Status: Acute (2) Leukocytosis Current Visit: Yes Status: Acute Qualifiers: Leukocytosis type: unspecified Qualified Code(s): D72.829 - Elevated white blood cell count, unspecified (3) Elevated procalcitonin Current Visit: Yes Status: Acute - Plan We will continue patient on IV fluids Zofran as needed nausea tramadol as needed pain Tessalon Perles as needed cough Azithromycin for pneumonia that is likely bacterial due to elevated white blood cell count Patient was given Tamiflu in the ED as symptoms most likely resemble the flu. Consider continuation of Tamiflu based on patient's symptoms. Procalcitonin elevated at 0.09. Trend. Lactic acid ordered Blood cultures drawn Potassium was slightly low at 3.3. We will replete Creatinine was slightly elevated at 1.41. Likely due to dehydration. Will repeat DVT PPx: Lovenox Code: Full Discharge Plan: Home Plan to discharge in: 24 Hours - Advance Directives Does patient have a Living Will: No Does patient have a Durable POA for Healthcare: No - Code Status/Comfort Care Code Status Assessed: Yes (Full) Critical Care: No Time Spent Managing Pts Care (In Minutes): 70
[2021-05-13 04:11] VITALS: BMI 31.3
[2021-05-13] MEDS ORDERED: ALBUTEROL 2.5 MG/3 ML NEB SOL NEB PRN (04:24)
[2021-05-13] MEDS ORDERED: TRAMADOL HCL 50 MG TAB PO PRN ×2 (04:24→10:10)
[2021-05-13] MEDS: BENZONATATE 100 MG CAP PO PRN ×2 (04:51→17:33)
[2021-05-13] MEDS: ONDANSETRON 4 MG/2 ML VIAL IV PRN (04:51)
[2021-05-13] MEDS: NA CHLORIDE 0.9% 1,000 ML IV SCH ×2 (04:51→14:24)
[2021-05-13] MEDS: ACETAMINOPHEN 500 MG TAB PO PRN ×2 (04:51→15:52)
[2021-05-13 05:35] LABS: Absolute Lymphocytes (CBC) 1.7 K/uL (0.7-4.9); Hematocrit 40.8 % (39.6-49.0); Lymphocytes % 11.8 % (15.3-44.8); MPV 9.9 fL (7.6-11.3); RBC Red Blood Cell Count 4.79 M/uL (4.33-5.43)
[2021-05-13 05:50] LABS: Bilirubin Total 0.9 mg/dL (0.2-1.0); Magnesium 1.9 mg/dL (1.8-2.4); Phosphorus 2.4 mg/dL (2.5-4.9); Potassium 3.5 mmol/L (3.5-5.1); Protein, Total 6.4 g/dL (6.4-8.2)
[2021-05-13] MEDS ORDERED: POTASSIUM CL SA 10 MEQ TAB PO ONE (06:18)
[2021-05-13] MEDS: AZITHROMYCIN IV 500 MG in NA CHLORIDE 0.9% 250 ML IVPB SCH (08:20)
[2021-05-13] MEDS: ENOXAPARIN 40 MG/0.4 ML SQ SCH (08:20)
[2021-05-13] MEDS ORDERED: CEPACOL LOZENGES PO PRN (10:09)
[2021-05-13] MEDS ORDERED: HYDROCODONE/CHLORPHEN 5 ML/OSYR PO PRN (10:09)
[2021-05-13] MEDS ORDERED: INFLUENZA VACCINE (for 6+ mo) 0.5 ML DOSE IMVAC ONE (11:00)
[2021-05-13] MEDS: GUAIFENESIN/DM 5 ML UCUP PO PRN (11:34)
[2021-05-13] MEDS ORDERED: MORPHINE 2 MG/ML SYR IV ONE (12:21)
--- NOTE | 2021-05-13 13:14 | P.PN ---
Date of Service: 05/13/21 Patient seen and examined. He is complaining of sore throat, persistent coughing and headache. Blood pressure is borderline low. No fever since this morning. Diagnosis: Pneumonia Upper respiratory infection Plan: Continue antibiotics Supportive measures with analgesics. Antitussives Cepacol as needed for sore throat. Follow blood cultures
[2021-05-13] MEDS: HYDROCODONE/APAP 5/325 MG TAB PO PRN ×2 (15:55→20:55)
[2021-05-13] MEDS: ZOLPIDEM TARTRATE 10 MG TABLET PO PRN (20:55)
[2021-05-14] MEDS: NA CHLORIDE 0.9% 1,000 ML IV SCH ×3 (00:24→20:24)
[2021-05-14] MEDS: HYDROCODONE/APAP 5/325 MG TAB PO PRN ×4 (03:32→20:08)
[2021-05-14 03:56] LABS: Absolute Lymphocytes (CBC) 1.5 K/uL (0.7-4.9); MPV 9.2 fL (7.6-11.3); RBC Red Blood Cell Count 4.66 M/uL (4.33-5.43)
[2021-05-14 04:12] LABS: Albumin 2.9 g/dL (3.4-5.0); Bilirubin Total 0.6 mg/dL (0.2-1.0); Phosphorus 2.1 mg/dL (2.5-4.9); Potassium 3.7 mmol/L (3.5-5.1); Protein, Total 6.5 g/dL (6.4-8.2)
[2021-05-14] MEDS ORDERED: POTASSIUM CL SA 10 MEQ TAB PO ONE (05:59)
[2021-05-14] MEDS: ENOXAPARIN 40 MG/0.4 ML SQ SCH (08:58)
[2021-05-14] MEDS: AZITHROMYCIN IV 500 MG in NA CHLORIDE 0.9% 250 ML IVPB SCH (08:59)
[2021-05-14] MEDS: BENZONATATE 100 MG CAP PO PRN (08:59)
[2021-05-14] MEDS: GUAIFENESIN/DM 5 ML UCUP PO PRN (10:03)
[2021-05-14] MEDS: ONDANSETRON 4 MG/2 ML VIAL IV PRN (11:48)
--- NOTE | 2021-05-14 12:25 | RAD REPORT ---
EXAM DESCRIPTION: RAD - Chest Single View - 05/12/2021 11:25 pm CLINICAL HISTORY: COUGH COMPARISON: None. FINDINGS: Single frontal radiograph view of the chest. Cardiomediastinal silhouette: Normal size and contour. Lungs: Mild coarse bibasilar opacities. Low lung volumes. Bones: No acute osseous abnormality. Upper abdomen: No abnormality identified. IMPRESSION: 1. Mild coarse bibasilar opacities may be related to developing bronchopneumonia. Electronically signed by: Chemo Castro 05/12/2021 11:38 PM LAST MODEL DEPARTMENT SUPERVISOR Due to temporary technical issues with the PACS/Fluency reporting system, reports are being signed by the in house radiologist without review as a courtesy to ensure prompt reporting. The interpreting r adiologist is fully responsible for the content of the report.
[2021-05-14] MEDS: ACETAMINOPHEN 500 MG TAB PO PRN (13:58)
--- NOTE | 2021-05-14 14:43 | P.PN ---
Subjective Date of Service: 05/14/21 Primary Care Provider: None Chief Complaint: Pneumoniabilateral Patient states he is slightly better today compared to yesterday. No fever today. He states the sore throat is better. Physical Examination - Vital Signs Temperature: 97.4 F Blood Pressure: 117/57 Pulse: 86 Respirations: 16 Pulse Ox (%): 94 - Physical Exam General: Alert, In no apparent distress, Oriented x3 HEENT: Mucous membr. moist/pink, Sclerae nonicteric Neck: JVD not distended Respiratory: Clear to auscultation bilaterally, Normal air movement Cardiovascular: No edema, Regular rate/rhythm, Normal S1 S2, No murmurs Gastrointestinal: Normal bowel sounds, Soft and benign, Non-distended, No tenderness Musculoskeletal: No swelling, No tenderness Integumentary: No rashes, No cyanosis Neurological: Normal speech, Cranial nerves 3-12 intact Lymphatics: No axilla or inguinal lymphadenopathy - Studies Laboratory Data (last 24 hrs) 05/13/21 06:15: Potassium Cancelled Assessment And Plan - Current Problems (Diagnosis) (1) Sepsis Current Visit: Yes Status: Acute (2) Upper respiratory infection, acute Current Visit: Yes Status: Acute (3) Bronchopneumonia Current Visit: Yes Status: Acute - Plan Continue current antibiotics for bronchopneumonia. Continue supportive measures including antitussives, opioid as needed for pain. Ambien for insomnia. Patient currently not requiring oxygen. Leukocytosis is trending down. Blood cultures: No growth to date. Rapid strep is negative. Monitor for 1 more day for improvement and then discharge.
[2021-05-14] MEDS ORDERED: Levofloxacin 750mg IV 750 MG/150 ML BAG IV SCH (15:00)
[2021-05-14] MEDS: ZOLPIDEM TARTRATE 10 MG TABLET PO PRN (22:53)
[2021-05-14 23:27] LABS: Urine Appearance CLEAR (Clear); Urine Bilirubin NEGATIVE (Negative); Urine Blood NEGATIVE (Negative); Urine Color YELLOW (Yellow); Urine Glucose NEGATIVE (Negative); Urine Microscopic Reflex NO UMIC; Urine Protein NEGATIVE (Negative); Urine pH 6.5 (5.0-7.0)
[2021-05-15] MEDS: NA CHLORIDE 0.9% 1,000 ML IV SCH ×2 (02:59→06:24)
[2021-05-15 04:49] VITALS: O2SAT 98
[2021-05-15 05:38] LABS: Absolute Lymphocytes (CBC) 1.5 K/uL (0.7-4.9); Hematocrit 41.1 % (39.6-49.0); Lymphocytes % 16.3 % (15.3-44.8); MPV 9.4 fL (7.6-11.3); RBC Red Blood Cell Count 4.85 M/uL (4.33-5.43)
[2021-05-15] MEDS: HYDROCODONE/APAP 5/325 MG TAB PO PRN (08:04)
[2021-05-15] MEDS: ONDANSETRON 4 MG/2 ML VIAL IV PRN (08:04)
[2021-05-15] MEDS: GUAIFENESIN/DM 5 ML UCUP PO PRN (08:05)
[2021-05-15] MEDS: ENOXAPARIN 40 MG/0.4 ML SQ SCH (08:05)
--- NOTE | 2021-05-15 09:29 | P.DS ---
Admission Date: 05/13/21 Discharge Date: 05/15/21 Primary Care Provider: None Disposition: ROUTINE DISCHARGE Discharge Condition: GOOD Reason for Admission: Pneumoniabilateral Hospital Course: Patient is a 41-year-old male with no past medical history who was admitted to the hospital with pneumonia and URI symptoms. His throat culture yielded group A strep. He has been treated empirically here with levofloxacin due to a penicillin allergies. He did very well throughout this hospitalization and he can be discharged today. Vital Signs/Physical Exam: Temp Pulse Resp BP Pulse Ox 97.9 F 65 69 H 129/60 99 05/15/21 04:00 05/15/21 00:00 05/15/21 08:04 05/15/21 04:00 05/15/21 08:04 General: In no apparent distress, Cooperative, Obese HEENT: Atraumatic, Normocephalic Respiratory: Clear to auscultation bilaterally, Normal air movement Cardiovascular: Regular rate/rhythm, Normal S1 S2 Gastrointestinal: Soft and benign, Non-distended Musculoskeletal: No clubbing, No swelling, No contractures Neurological: Normal speech, Sensation intact, Normal affect Laboratory Data at Discharge: WBC 9.10 K/uL (4.3-10.9) D 05/15/21 05:09 Hgb 13.8 g/dL (13.6-17.9) 05/15/21 05:09 Hct 41.1 % (39.6-49.0) 05/15/21 05:09 Plt Count 207 K/uL (152-406) 05/15/21 05:09 Sodium 139 mmol/L (136-145) 05/15/21 05:09 Potassium 4.0 mmol/L (3.5-5.1) 05/15/21 05:09 BUN 9 mg/dL (7-18) 05/15/21 05:09 Creatinine 1.03 mg/dL (0.55-1.3) 05/15/21 05:09 Glucose 92 mg/dL (74-106) 05/15/21 05:09 Phosphorus 2.1 mg/dL (2.5-4.9) L 05/14/21 03:40 Magnesium 2.0 mg/dL (1.8-2.4) 05/14/21 03:40 Total Bilirubin 0.6 mg/dL (0.2-1.0) 05/14/21 03:40 AST 26 U/L (15-37) 05/14/21 03:40 ALT 56 U/L (12-78) 05/14/21 03:40 Alkaline Phosphatase 67 U/L (45-117) 05/14/21 03:40 Home Medications: Benzonatate [Tessalon Perle*] 100 mg PO TID PRN #21 cap 05/15/21 levoFLOXacin [Levaquin*] 750 mg PO DAILY #6 tab 05/15/21 New Medications: levoFLOXacin [Levaquin*] 750 mg PO DAILY #6 tab Benzonatate [Tessalon Perle*] 100 mg PO TID PRN #21 cap PRN Reason: Cough Followup: NONE,NONE [Primary Care Provider] -
[2021-05-15 09:47] VITALS: BP 111/59; TEMP 97.4
== END 2021-05-15 10:15 | disposition home or self-care (01) | DRG 871 ==
LOC: ER 22:32 → ERHOLD 05-13 01:20 → 2ND 05-13 03:13 → OBSVTOIN 05-13 08:50
PROVIDERS: ADMIT Internal Medicine; ATTEND Internal Medicine
DX: A40.0 Sepsis due to streptococcus, group A (principal); J18.0 Bronchopneumonia, unspecified organism; G47.00 Insomnia, unspecified; D72.829 Elevated white blood cell count, unspecified; Z88.0 Allergy status to penicillin; Z87.891 Personal history of nicotine dependence; Z79.899 Other long term (current) drug therapy; Z20.822 Contact with and (suspected) exposure to COVID-19
CPT/HCPCS: 0240U; 36415; 71045; 80048; 80053; 81003; 83605; 83735; 84100; 84145; 85025; 87040; 87070; 87081; 94010; 96365; 99285; J0456; J1650; J2270; J2405; J7030; J7050

== ENCOUNTER 2021-05-29 17:33 | Emergency (ER) | payer SELFPAY ==
[2021-05-29] MEDS ORDERED: dexAMETHasone 10 MG/ML VIAL ONE (18:34)
--- NOTE | 2021-05-29 19:56 | ER ---
Nurse's Notes [facility] Name: Mike Daugherty Age: 41 yrs Sex: Male : 1980 Arrival Date: 05/29/2021 Time: 17:33 Bed 16 Private MD: Diagnosis: Acute streptococcal tonsillitis, unspecified Presentation: 05/29 17:52 Chief complaint: Patient states: 4 DAYS THROAT AND EAR PAIN, RECENT H/O ADMIT FOR bp PNEUMONIA. Coronavirus screen: At this time, the client does not indicate any symptoms associated with coronavirus-19. Ebola Screen: No symptoms or risks identified at this time. Initial Sepsis Screen: Does the patient meet any 2 criteria? No. Patient's initial sepsis screen is negative. Does the patient have a suspected source of infection? No. Patient's initial sepsis screen is negative. Risk Assessment: Do you want to hurt yourself or someone else?. Onset of symptoms is unknown. 17:52 Method Of Arrival: Ambulatory bp 17:52 Acuity: UTE 3 bp Triage Assessment: 18:46 General: Appears in no apparent distress. Behavior is calm, cooperative. jg9 Historical: - Allergies: 17:54 PENICILLINS; bp - Immunization history:: Client reports receiving the 2nd dose of the Covid vaccine. - Social history:: Smoking status: Patient denies any tobacco usage or history of. Screenin:45 Abuse screen: Denies threats or abuse. Denies injuries from another. Nutritional jg9 screening: No deficits noted. Tuberculosis screening: No symptoms or risk factors identified. Fall Risk None identified. Assessment: 18:45 Pain: Complains of pain in neck-throat. Respiratory: Airway is patent Respiratory jg9 effort is even, unlabored, Breath sounds are clear bilaterally. EENT: Throat is reddened. 19:19 Reassessment: Patient is alert, oriented x 3, equal unlabored respirations, skin ke1 warm/dry/pink. Vital Signs: 17:52 BP 136 / 94; Pulse 95; Resp 16; Temp 98.2; Pulse Ox 100% ; Weight 90.72 kg; Height 5 bp ft. 7 in. (170.18 cm); 20:12 BP 123 / 79; Pulse 74; Resp 18; Pulse Ox 98% on R/A; ke1 17:52 Body Mass Index 31.32 (90.72 kg, 170.18 cm) bp ED Course: 17:33 Patient arrived in ED. ds1 17:54 Triage completed. bp 17:54 Arm band placed on. bp 17:57 Ky Bird PA is PHCP. jr8 17:57 Matt Jewell DO is Attending Physician. jr8 18:27 Dayana Franks, RN is Primary Nurse. jg9 18:46 Patient has correct armband on for positive identification. Bed in low position. Call jg9 light in reach. Side rails up X 1. 19:19 Primary Nurse role handed off by Dayana Franks, STEWART mw2 19:24 Kevin Palmer, STEWART is Primary Nurse. ke1 20:13 No provider procedures requiring assistance completed. ke1 20:13 Patient did not have IV access during this emergency room visit. ke1 Administered Medications: 18:45 Drug: Decadron (dexamethasone) 10 mg Route: IM; Site: left deltoid; j9 19:04 Follow up: Response: No adverse reaction j9 20:09 Drug: Clindamycin 300 mg Route: PO; ke1 20:13 Follow up: Response: Medication administered at discharge. ke1 Outcome: 19:55 Discharge ordered by MD. jr8 20:13 Discharged to home ambulatory. ke1 20:13 Condition: good 20:13 Discharge instructions given to patient. 20:14 Patient left the ED. ke1 Signatures: Krystal Luciano ds1 Ky Bird PA PA jr8 Clyde Samaniego RN RN bp [place], MyKena mw2 Dayana Franks RN RN j9 Kevin Palmer RN RN ke1
--- NOTE | 2021-05-29 19:56 | EDPHYS ---
Physician Documentation [facility] Name: Mike Daugherty Age: 41 yrs Sex: Male : 1980 Arrival Date: 05/29/2021 Time: 17:33 Bed 16 Private MD: ED Physician Matt Jewell HPI: 05/29 19:53 This 41 yrs old Male presents to ER via Ambulatory with complaints of Sore Throat, Ear jr8 Pain. 19:53 The patient presents with sore throat. The patient describes throat pain as constant. jr8 Onset: The symptoms/episode began/occurred gradually, 2 day(s) ago. Severity of symptoms: At their worst the symptoms were moderate, in the emergency department the symptoms are unchanged. Modifying factors: The symptoms are alleviated by nothing, the symptoms are aggravated by swallowing. Associated signs and symptoms: Pertinent positives: earache. The patient has not experienced similar symptoms in the past. The patient has not recently seen a physician. Historical: - Allergies: 17:54 PENICILLINS; bp - Immunization history:: Client reports receiving the 2nd dose of the Covid vaccine. - Social history:: Smoking status: Patient denies any tobacco usage or history of. ROS: 19:53 Eyes: Negative for injury, pain, redness, and discharge, Neck: Negative for injury, jr8 pain, and swelling, Cardiovascular: Negative for chest pain, palpitations, and edema, Respiratory: Negative for shortness of breath, cough, wheezing, and pleuritic chest pain, Abdomen/GI: Negative for abdominal pain, nausea, vomiting, diarrhea, and constipation, Back: Negative for injury and pain, MS/Extremity: Negative for injury and deformity, Skin: Negative for injury, rash, and discoloration, Neuro: Negative for headache, weakness, numbness, tingling, and seizure. 19:53 ENT: Positive for ear pain, sore throat. Exam: 19:53 Constitutional: This is a well developed, well nourished patient who is awake, alert, jr8 and in no acute distress. Eyes: Pupils equal round and reactive to light, extra-ocular motions intact. Lids and lashes normal. Conjunctiva and sclera are non-icteric and not injected. Cornea within normal limits. Periorbital areas with no swelling, redness, or edema. Neck: Trachea midline, no thyromegaly or masses palpated, and no cervical lymphadenopathy. Submandibular lymphadenopathy present. Supple, full range of motion without nuchal rigidity, or vertebral point tenderness. No Meningismus. Cardiovascular: Regular rate and rhythm with a normal S1 and S2. No gallops, murmurs, or rubs. Normal PMI, no JVD. No pulse deficits. Respiratory: Lungs have equal breath sounds bilaterally, clear to auscultation and percussion. No rales, rhonchi or wheezes noted. No increased work of breathing, no retractions or nasal flaring. Abdomen/GI: Soft, non-tender, with normal bowel sounds. No distension or tympany. No guarding or rebound. No evidence of tenderness throughout. Back: No spinal tenderness. No costovertebral tenderness. Full range of motion. Skin: Warm, dry with normal turgor. Normal color with no rashes, no lesions, and no evidence of cellulitis. MS/ Extremity: Pulses equal, no cyanosis. Neurovascular intact. Full, normal range of motion. Neuro: Awake and alert, GCS 15, oriented to person, place, time, and situation. Cranial nerves II-XII grossly intact. Motor strength 5/5 in all extremities. Sensory grossly intact. 19:53 ENT: Exam is negative for earache, ear discharge, TM abnormalities, nasal discharge, Posterior pharynx: Airway: patent, Tonsils: bilaterally enlarged, with erythema, with exudate, no ulcerations, Uvula: midline, non-edematous, no erythema, swelling, is not appreciated, erythema, that is mild. Vital Signs: 17:52 BP 136 / 94; Pulse 95; Resp 16; Temp 98.2; Pulse Ox 100% ; Weight 90.72 kg; Height 5 bp ft. 7 in. (170.18 cm); 20:12 BP 123 / 79; Pulse 74; Resp 18; Pulse Ox 98% on R/A; ke1 17:52 Body Mass Index 31.32 (90.72 kg, 170.18 cm) bp MDM: 18:00 Patient medically screened. jr8 19:53 Data reviewed: vital signs, nurses notes, lab test result(s). Data interpreted: Pulse jr8 oximetry: on room air is 100 %. Interpretation: normal. Counseling: I had a detailed discussion with the patient and/or guardian regarding: the historical points, exam findings, and any diagnostic results supporting the discharge/admit diagnosis, lab results, the need for outpatient follow up, a family practitioner, to return to the emergency department if symptoms worsen or persist or if there are any questions or concerns that arise at home. 05/29 18:12 Order name: Strep; Complete Time: 19:57 jr8 Administered Medications: 18:45 Drug: Decadron (dexamethasone) 10 mg Route: IM; Site: left deltoid; jg9 19:04 Follow up: Response: No adverse reaction jg9 20:09 Drug: Clindamycin 300 mg Route: PO; ke1 20:13 Follow up: Response: Medication administered at discharge. ke1 Disposition: 21:58 Co-signature as Attending Physician, Matt Jewell DO I was immediately available on-site ms3 in the Emergency Department for consultation in the care of the patient.. Disposition Summary: 05/29/21 19:55 Discharge Ordered Location: Home jr8 Problem: new jr8 Symptoms: have improved jr8 Condition: Stable jr8 Diagnosis - Acute streptococcal tonsillitis, unspecified jr8 Followup: jr8 - With: Private Physician - When: 1 week - Reason: Recheck today's complaints, Continuance of care, Re-evaluation by your physician Discharge Instructions: - Discharge Summary Sheet jr8 - Strep Throat, Adult jr8 Forms: - Medication Reconciliation Form jr8 - Thank You Letter jr8 - Antibiotic Education jr8 - Prescription Opioid Use jr8 Prescriptions: - Clindamycin HCl 300 mg Oral Capsule - take 1 capsule by ORAL route 3 times per day for 7 days; 21 capsule; Refills: jr8 0, Product Selection Permitted Signatures: Dispatcher [employer] Ky Bucio PA PA jr8 Clyde Samaniego, RN RN Matt Ochoa DO DO ms3 Dayana Franks RN RN jg9 Kevin Palmer RN RN ke1
[2021-05-29 20:23] VITALS: TEMP 98.2
[2021-05-29 20:24] VITALS: BP 123/79; O2SAT 98
== END 2021-05-29 20:14 | disposition home or self-care (01) ==
LOC: ER 17:33
DX: J03.00 Acute streptococcal tonsillitis, unspecified (principal); Z88.0 Allergy status to penicillin
CPT/HCPCS: 87081; 96372; 99283; J1100

== ENCOUNTER 2021-09-23 16:44 | Emergency (ER) | payer SELFPAY ==
[2021-09-23 19:39] LABS: Urine Blood Negative (Negative); Urine Glucose Negative (Negative); Urine Protein Trace (Negative); Urine Specific Gravity >=1.030 (1.005-1.030); Urine pH 5.5 (5.0-7.0)
--- NOTE | 2021-09-23 19:58 | RAD REPORT ---
EXAM DESCRIPTION: CT - CTHCSPWOC - 09/23/2021 7:42 pm CLINICAL HISTORY: Headache, neck pain COMPARISON: <Comparisons> TECHNIQUE: Axial 5 mm thick images of the head were obtained. Axial 2 mm thick images of the cervical spine were obtained with sagittal and coronal reconstruction images generated and reviewed. All CT scans are performed using dose optimization technique as appropriate and may include automated exposure control or mA/KV adjustment according to patient size. FINDINGS: CT HEAD WITHOUT CONTRAST: No acute hemorrhage, hydrocephalus or extra-axial collection is identified.No areas of brain edema or midline shift. The paranasal sinuses and mastoids are clear.The calvarium is intact. CT CERVICAL SPINE WITHOUT CONTRAST: No fracture or subluxation.No prevertebral soft tissues swelling is identified. Aberrant right subcla vian artery. IMPRESSION: No acute intracranial or cervical spine findings.
--- NOTE | 2021-09-23 20:14 | RAD REPORT ---
EXAM DESCRIPTION: RAD - Chest Single View - 09/23/2021 7:56 pm CLINICAL HISTORY: CHEST PAIN COMPARISON: Chest Single View dated 05/12/2021; Chest Pa And Lat (2 Views) dated 11/06/2020; Chest Pa A nd Lat (2 Views) dated 04/14/2018 FINDINGS: Lines: None. Lungs: No evidence of edema or pneumonia. Pleural: No significant pleural effusions or pneumothorax. Cardiac: The heart size is within normal limits. Bones: No acute fractures. Other: IMPRESSION: No acute cardiopulmonary disease.
[2021-09-23] MEDS ORDERED: ONDANSETRON 4 MG/2 ML VIAL ONE (20:46)
[2021-09-23 20:48] LABS: Absolute Lymphocytes (CBC) 2.8 K/uL (0.7-4.9); Hematocrit 46.2 % (39.6-49.0); Lymphocytes % 31.6 % (15.3-44.8); MCV 84.4 fL (80-100); MPV 9.3 fL (7.6-11.3); RBC Red Blood Cell Count 5.48 M/uL (4.33-5.43)
[2021-09-23 20:59] LABS: Albumin 3.8 g/dL (3.4-5.0); Bilirubin Direct 0.1 mg/dL (0-0.2); Bilirubin Total 0.4 mg/dL (0.2-1.0); Magnesium 2.2 mg/dL (1.8-2.4); Protein, Total 7.7 g/dL (6.4-8.2); Troponin High Sensitivity 4.9 pg/mL (<58.9)
[2021-09-23 21:19] LABS: Protime INR 0.97
--- NOTE | 2021-09-23 21:57 | ER ---
Nurse's Notes [facility] Name: Mike Daugherty Age: 41 yrs Sex: Male : 1980 Arrival Date: 09/23/2021 Time: 16:46 Bed 12 Private MD: Diagnosis: Strain of muscle and tendon of back wall of thorax;Chest pain, unspecified Presentation: 09/23 16:57 Chief complaint: Patient states: "I have always popped my own neck and for the past jl7 couple of months I have been having neck pain that radiates down to my spine." Neck pain with back pain and constant nausea x 2 months. Coronavirus screen: At this time, the client does not indicate any symptoms associated with coronavirus-19. Ebola Screen: No symptoms or risks identified at this time. Initial Sepsis Screen: Does the patient meet any 2 criteria? No. Patient's initial sepsis screen is negative. Does the patient have a suspected source of infection? No. Patient's initial sepsis screen is negative. Risk Assessment: Do you want to hurt yourself or someone else? Patient reports no desire to harm self or others. Onset of symptoms was July 2021. 16:57 Method Of Arrival: Ambulatory [facility] 16:57 Acuity: UTE 3 jl7 Triage Assessment: 17:00 Headache History: The patient has had previous headaches and this one is similar to jl7 previous episodes. General: Appears in no apparent distress. uncomfortable, Behavior is cooperative, anxious. Pain: Complains of pain in neck Pain radiates to thoracic area Pain currently is 10 out of 10 on a pain scale. Pain began x 2 months Also complains of nausea. Neuro: Level of Consciousness is awake, alert, obeys commands, Oriented to person, place, time, situation. Historical: - Allergies: 17:00 PENICILLINS; jl7 - Home Meds: 17:00 None [Active]; jl7 - PMHx: 17:00 None; jl7 - PSHx: 17:00 None; jl7 - Immunization history:: Client reports receiving the 2nd dose of the Covid vaccine. - Social history:: Smoking status: Patient denies any tobacco usage or history of. Screenin:18 Abuse screen: Denies threats or abuse. Denies injuries from another. Nutritional lg3 screening: No deficits noted. Tuberculosis screening: No symptoms or risk factors identified. Fall Risk None identified. Assessment: 19:18 General: Appears in no apparent distress. uncomfortable, Behavior is calm, cooperative. lg3 Pain: Complains of pain in thoracic area Quality of pain is described as burning, crampy, pressure, throbbing. Neuro: No deficits noted. Level of Consciousness is awake, alert, obeys commands, Oriented to person, place, time, situation. Cardiovascular: No deficits noted. Denies chest pain, shortness of breath, Capillary refill < 3 seconds Clubbing of nail beds is absent JVD is absent Patient's skin is warm and dry. Respiratory: No deficits noted. Airway is patent Trachea midline Respiratory effort is even, unlabored, Respiratory pattern is regular, symmetrical. GI: No deficits noted. No signs and/or symptoms were reported involving the gastrointestinal system. Abdomen is round non-distended. : No deficits noted. No signs and/or symptoms were reported regarding the genitourinary system. EENT: No deficits noted. No signs and/or symptoms were reported regarding the EENT system. Derm: No deficits noted. No signs and/or symptoms reported regarding the dermatologic system. Skin is intact, is healthy with good turgor, Skin is dry, Skin temperature is warm. Musculoskeletal: No deficits noted. Circulation, motion, and sensation intact. Range of motion: intact in all extremities, Reports pain in thoracic area. 20:00 Reassessment: Patient and/or family updated on plan of care and expected duration. Pain lg3 level reassessed. 21:00 Reassessment: Patient and/or family updated on plan of care and expected duration. Pain lg3 level reassessed. Patient is alert, oriented x 3, equal unlabored respirations, skin warm/dry/pink. 22:00 Reassessment: Patient and/or family updated on plan of care and expected duration. Pain lg3 level reassessed. Patient is alert, oriented x 3, equal unlabored respirations, skin warm/dry/pink. Patient states feeling better. Patient states symptoms have improved. Vital Signs: 16:57 BP 132 / 88; Pulse 80; Resp 17; Temp 98.8; Pulse Ox 98% ; Weight 97.52 kg; Height 5 ft. jl7 7 in. (170.18 cm); Pain 10/10; 19:20 BP 133 / 83; Pulse 82; Resp 18 S; Pulse Ox 100% on R/A; lg3 16:57 Body Mass Index 33.67 (97.52 kg, 170.18 cm) jl7 ED Course: 16:46 Patient arrived in ED. mr 16:47 Meet Meehan PA is PHCP. [facility] 16:47 Umu Levi is Attending Physician. [facility] 17:00 Triage completed. jl7 17:00 Arm band placed on right wrist. Patient placed in waiting room, Patient notified of [facility] wait time. 19:14 Yumiko Shaw, RN is Primary Nurse. lg3 19:16 Patient has correct armband on for positive identification. Bed in low position. Call [facility] light in reach. Side rails up X 1. Warm blanket given. traffic monitor specialist on. Pulse ox on. NIBP on. 19:16 Basic Metabolic Panel Sent. 5 19:16 CBC with Diff Sent. 5 19:16 LFT's Sent. [facility] 19:16 Magnesium Sent. 5 19:16 NT PRO-BNP Sent. 5 19:16 PT-INR Sent. 5 19:16 Troponin HS Sent. mh5 19:43 CT Head C Spine In Process Unspecified. EDMS 19:46 Urine collected: clean catch specimen, clear, EKG done, by ED staff, reviewed by Meet BOOTH. 19:58 XRAY Chest (1 view) In Process Unspecified. EDMS 20:05 Missed attempt(s): 20 gauge in right antecubital area. 22 gauge in right hand. mh5 20:34 Inserted saline lock: 22 gauge in left antecubital area, using aseptic technique. Blood lg3 collected. 22:10 Marck Cervantes MD is Referral Physician. [facility] 22:19 No provider procedures requiring assistance completed. IV discontinued, intact, lg3 bleeding controlled, No redness/swelling at site. Pressure dressing applied. Administered Medications: No medications were administered Medication: 22:20 VIS not applicable for this client. lg3 Outcome: 21:57 Discharge ordered by . jmm 22:19 Discharged to home ambulatory. lg3 22:19 Condition: good 22:19 Discharge instructions given to patient, Instructed on discharge instructions, follow up and referral plans. medication usage, Demonstrated understanding of instructions, follow-up care, medications, Prescriptions given X 2. 22:20 Patient left the ED. lg3 Signatures: Dispatcher [employer] EDMS Meet Meehan PA PA jmm Rivera Dolly mr Lorelei Cruz 5 Berry Gomez RN RN jl7 Yumiko Shaw RN RN lg3
--- NOTE | 2021-09-23 21:57 | EDPHYS ---
Physician Documentation [facility] Name: Mike Daugherty Age: 41 yrs Sex: Male : 1980 Arrival Date: 09/23/2021 Time: 16:46 Bed 12 Private MD: ED Physician Umu Levi HPI: 09/23 18:51 This 41 yrs old Male presents to ER via Ambulatory with complaints of Headache, Nausea, jmm Back Pain, Neck pain. 18:51 The patient complains of pain to the left occipital area, left base of the skull, right jmm occipital area and right base of the skull. Onset: The symptoms/episode began/occurred gradually, 2 month(s) ago. Associated signs and symptoms: Pertinent negatives: fever. This is a 41-year-old male with no chronic medical conditions presents emerged from with complaints of ongoing neck pain upper back pain began approximately 2 months ago. Patient states that he has a burning sensation to his neck which radiates into his chest. Denies shortness of breath, fatigue, fever.. Historical: - Allergies: 17:00 PENICILLINS; jl7 - Home Meds: 17:00 None [Active]; jl7 - PMHx: 17:00 None; jl7 - PSHx: 17:00 None; jl7 - Immunization history:: Client reports receiving the 2nd dose of the Covid vaccine. - Social history:: Smoking status: Patient denies any tobacco usage or history of. ROS: 18:51 Constitutional: Negative for fever, chills, and weight loss, Respiratory: Negative for jmm shortness of breath, cough, wheezing, and pleuritic chest pain. 18:51 Cardiovascular: Positive for chest pain. 18:51 All other systems are negative. Exam: 18:51 Constitutional: This is a well developed, well nourished patient who is awake, alert, jmm and in no acute distress. Head/Face: atraumatic. Eyes: EOMI, no conjunctival erythema appreciated ENT: Moist Mucus Membranes Neck: Trachea midline, Supple Chest/axilla: Normal chest wall appearance and motion. Cardiovascular: Regular rate and rhythm. No edema appreciated Respiratory: Normal respirations, no respiratory distress appreciated Abdomen/GI: Non distended Back: Normal ROM Skin: General appearance color normal MS/ Extremity: Moves all extremities, no obvious deformities appreciated, no edema noted to the lower extremities Neuro: Awake and alert Psych: Behavior is normal, Mood is normal, Patient is cooperative and pleasant 21:24 Neck: Paraspinal cervical pain, no midline tenderness appreciated, small mass [facility] appreciated to the left C6-C7 region,. 21:26 ECG was reviewed by the Attending Physician. [facility] Vital Signs: 16:57 BP 132 / 88; Pulse 80; Resp 17; Temp 98.8; Pulse Ox 98% ; Weight 97.52 kg; Height 5 ft. 7 7 in. (170.18 cm); Pain 10/10; 19:20 BP 133 / 83; Pulse 82; Resp 18 S; Pulse Ox 100% on R/A; lg3 16:57 Body Mass Index 33.67 (97.52 kg, 170.18 cm) 7 MDM: 18:51 Patient medically screened. [facility] 21:24 Data reviewed: vital signs, nurses notes. Counseling: I had a detailed discussion with [facility] the patient and/or guardian regarding: the historical points, exam findings, and any diagnostic results supporting the discharge/admit diagnosis, lab results, radiology results, the need for outpatient follow up, to return to the emergency department if symptoms worsen or persist or if there are any questions or concerns that arise at home. ED course: Patient is alert nontoxic in appearance in the ED. Patient will follow-up with PCP for further evaluation. Patient otherwise given strict return precautions. Patient understood agrees plan of care.. 09/23 18:51 Order name: Basic Metabolic Panel; Complete Time: 21: [facility] 09/23 18:51 Order name: CBC with Diff; Complete Time: 20:55 [facility] 09/23 18:51 Order name: LFT's; Complete Time: 21:01 [facility] 09/23 18:51 Order name: Magnesium; Complete Time: 21:01 [facility] 09/23 18:51 Order name: NT PRO-BNP; Complete Time: 21:01 [facility] 09/23 18:51 Order name: PT-INR; Complete Time: 21:23 [facility] 09/23 18:51 Order name: Troponin HS; Complete Time: 21:01 [facility] 09/23 18:51 Order name: XRAY Chest (1 view); Complete Time: 20:20 [facility] 09/23 18:51 Order name: EKG; Complete Time: 18:52 [facility] 09/23 18:51 Order name: Cardiac monitoring; Complete Time: 19:16 [facility] 09/23 18:51 Order name: EKG - Nurse/Tech; Complete Time: 19:16 [facility] 09/23 18:51 Order name: IV Saline Lock; Complete Time: 19:16 [facility] 09/23 18:52 Order name: CT Head C Spine; Complete Time: 20:06 [facility] 09/23 19:39 Order name: Urine Dipstick-Ancillary; Complete Time: 19:43 [facility] 09/23 18:51 Order name: Labs collected and sent; Complete Time: 19:16 [facility] 09/23 18:51 Order name: O2 Per Protocol; Complete Time: 19:16 [facility] 09/23 18:51 Order name: O2 Sat Monitoring; Complete Time: 19:16 [facility] EC:26 Rate is 58 beats/min. Rhythm is regular. QRS Garrett is Normal. OH interval is normal. QRS jmm interval is normal. QT interval is normal. No Q waves. T waves are Normal. No ST changes noted. Reviewed by me. Administered Medications: No medications were administered Disposition Summary: 09/23/21 21:57 Discharge Ordered Location: Home [facility] Condition: Stable [facility] Diagnosis - Strain of muscle and tendon of back wall of thorax jmm - Chest pain, unspecified jm Followup: [facility] - With: Private Physician - When: 2 - 3 days - Reason: Recheck today's complaints, Continuance of care, Re-evaluation by your physician Followup: jm - With: Marck Cervantes MD - When: 2 - 3 days - Reason: Recheck today's complaints, Continuance of care, Re-evaluation by your physician Discharge Instructions: - Discharge Summary Sheet jmm - Nonspecific Chest Pain, Adult jmm - Thoracic Strain [facility] Forms: - Medication Reconciliation Form [facility] - Thank You Letter [facility] - Antibiotic Education [facility] - Prescription Opioid Use [facility] Prescriptions: - Diclofenac Sodium 75 mg Oral Tablet Sustained Release - take 1 tablet by ORAL route 2 times per day; 30 tablet; Refills: 0, Product [facility] Selection Permitted - orphenadrine citrate 100 mg Oral Tablet Sustained Release - take 1 tablet by ORAL route 2 times per day As needed; 20 tablet; Refills: 0, [facility] Product Selection Permitted Signatures: Dispatcher [employer] Meet Porter PA PA jmm Berry Gomez, RN RN jl7
[2021-09-23 23:13] VITALS: TEMP 98.8
[2021-09-23 23:14] VITALS: BP 133/83; O2SAT 100
--- NOTE | 2021-09-24 09:26 | EKG ---
Test Date: 2021-09-23 Test Time: 19:24:18 Metal Fence Erector: STEPHANIE MEASUREMENT RESULTS: Intervals: Rate: 58 NE: 186 QRSD: 74 QT: 390 QTc: 382 [place]: P: 39 NE: 186 QRS: 34 T: 6 INTERPRETIVE STATEMENTS: Sinus bradycardia Otherwise normal ECG Compared to ECG 11/06/2020 10:33:46 Sinus rhythm no longer present Electronically Signed On 09-24-21 09:24:44 CDT by Nando Miller
== END 2021-09-23 22:20 | disposition home or self-care (01) ==
LOC: ER 16:44
DX: S29.012A Strain of muscle and tendon of back wall of thorax, initial encounter (principal); R07.9 Chest pain, unspecified; Z88.0 Allergy status to penicillin
CPT/HCPCS: 36415; 70450; 71045; 72125; 80048; 80076; 81003; 83735; 83880; 84484; 85025; 85610; 93005; 99284; J2405

== ENCOUNTER 2021-09-28 17:29 | Emergency (ER) | payer SELFPAY ==
[2021-09-28] MEDS ORDERED: NA CHLORIDE 0.9% 1,000 ML ONE (20:34)
[2021-09-28] MEDS ORDERED: DIPHENHYDRAMINE 50 MG/ML VIAL ONE (20:49)
[2021-09-28] MEDS ORDERED: MORPHINE 4 MG/ML SYR ONE (20:50)
[2021-09-28] MEDS ORDERED: METOCLOPRAMIDE 10 MG/2mL INJ ONE (20:50)
[2021-09-28 21:00] LABS: Absolute Lymphocytes (CBC) 2.8 K/uL (0.7-4.9); Hematocrit 45.4 % (39.6-49.0); Lymphocytes % 30.8 % (15.3-44.8); MCV 83.2 fL (80-100); MPV 9.7 fL (7.6-11.3); RBC Red Blood Cell Count 5.46 M/uL (4.33-5.43)
[2021-09-28 21:10] LABS: Bilirubin Direct 0.2 mg/dL (0-0.2); Bilirubin Total 0.5 mg/dL (0.2-1.0); Magnesium 2.1 mg/dL (1.8-2.4); Phosphorus 2.8 mg/dL (2.5-4.9); Potassium 3.6 mmol/L (3.5-5.1); Protein, Total 7.7 g/dL (6.4-8.2)
--- NOTE | 2021-09-28 21:12 | RAD REPORT ---
EXAM DESCRIPTION: CT - CTHCSPWOC - 09/28/2021 9:02 pm CLINICAL HISTORY: Trauma, head and neck injury. pain COMPARISON: Head C Spine Mpr Wo Con dated 09/23/2021; Head C Spine Mpr Wo Con dated 04/14/2018 TECHNIQUE: Axial 5 mm thick images of the head were obtained. Axial 2 mm thick images of the cervical spine were obtained with sagittal and coronal reconstruction images generated and reviewed. All CT scans are performed using dose optimization technique as appropriate and may include automated exposure control or mA/KV adjustment according to patient size. FINDINGS: CT HEAD WITHOUT CONTRAST: No acute hemorrhage, hydrocephalus or extra-axial collection is identified.No areas of brain edema or midline shift. The paranasal sinuses and mastoids are clear.The calvarium is intact. CT CERVICAL SPINE WITHOUT CONTRAST: No fracture or subluxation.No prevertebral soft tissues swelling is identified. Mild nonspecific prom inent lymph nodes seen in the neck bilaterally. IMPRESSION: No acute intracranial or cervical spine findings. Mildly prominent lymph nodes in the neck bilaterally are nonspecific may be reactive.
[2021-09-28] MEDS ORDERED: KETOROLAC 30 MG/ML INJ ONE (22:23)
--- NOTE | 2021-09-28 22:49 | ER ---
Nurse's Notes [facility] Name: Mike Daugherty Age: 41 yrs Sex: Male : 1980 Arrival Date: 09/28/2021 Time: 17:31 Bed 4 Private MD: Diagnosis: Cervicalgia;Headache Presentation: 09/28 18:06 Chief complaint: Patient states: was here last Friday and symptoms are worse, back of iw my neck/scalp has throbbing headache and tightness and now it's in my shoulders and back and I have been nauseated since then , has pain that feels like burning and numbness down his neck , went to chiropractor yesterday with no relief. Coronavirus screen: At this time, the client does not indicate any symptoms associated with coronavirus-19. Ebola Screen: Patient negative for fever greater than or equal to 101.5 degrees Fahrenheit, and additional compatible Ebola Virus Disease symptoms Patient denies exposure to infectious person. Patient denies travel to an Ebola-affected area in the 21 days before illness onset. No symptoms or risks identified at this time. Initial Sepsis Screen: Does the patient meet any 2 criteria? No. Patient's initial sepsis screen is negative. Does the patient have a suspected source of infection? No. Patient's initial sepsis screen is negative. Risk Assessment: Do you want to hurt yourself or someone else? Patient reports no desire to harm self or others. Onset of symptoms was September 28, 2021. 18:06 Method Of Arrival: Ambulatory iw 18:06 Acuity: UTE 3 iw Historical: - Allergies: 18:09 PENICILLINS; iw - Immunization history:: Adult Immunizations up to date. - Social history:: Smoking status: Patient denies any tobacco usage or history of. Screenin:15 Abuse screen: Denies threats or abuse. Nutritional screening: No deficits noted. kl Tuberculosis screening: No symptoms or risk factors identified. Fall Risk None identified. Assessment: 20:13 General: Appears uncomfortable, well developed, well nourished, Behavior is calm, kl cooperative. Pain: Complains of pain in occipital area and base of the skull Pain currently is 9 out of 10 on a pain scale. Quality of pain is described as burning, throbbing, Pain began 2 weeks. Neuro: Level of Consciousness is awake, alert, obeys commands, Oriented to person, place, time, situation, Scratcher are weak on right Moves all extremities. Full function Gait is steady, Speech is normal, Facial symmetry appears normal, Pupils are PERRLA. Cardiovascular: No deficits noted. Respiratory: No deficits noted. Airway is patent Trachea midline Respiratory effort is even, unlabored, Respiratory pattern is regular, symmetrical. GI: No deficits noted. No signs and/or symptoms were reported involving the gastrointestinal system. : No deficits noted. No signs and/or symptoms were reported regarding the genitourinary system. EENT: No deficits noted. No signs and/or symptoms were reported regarding the EENT system. Derm: No deficits noted. No signs and/or symptoms reported regarding the dermatologic system. 21:07 Reassessment: Patient appears in no apparent distress at this time. Patient and/or hb family updated on plan of care and expected duration. Pain level reassessed. Patient is alert, oriented x 3, equal unlabored respirations, skin warm/dry/pink. 22:48 Reassessment: Patient appears in no apparent distress at this time. Patient and/or hb family updated on plan of care and expected duration. Pain level reassessed. Patient is alert, oriented x 3, equal unlabored respirations, skin warm/dry/pink. Vital Signs: 18:06 BP 125 / 82; Pulse 72; Resp 16; Temp 98.8; Pulse Ox 98% on R/A; iw 20:15 BP 144 / 85; Pulse 76; Resp 18; Pulse Ox 99% on R/A; Pain 9/10; kl 21:07 BP 138 / 82; Pulse 68; Resp 19; Pulse Ox 98% on R/A; hb 21:16 BP 125 / 77; Pulse 64; Resp 16; Pulse Ox 97% ; Pain 3/10; kl 22:17 BP 109 / 63; Pulse 64; Resp 16; Pulse Ox 99% on R/A; Pain 0/10; kl 22:48 BP 101 / 69; Pulse 64; Resp 15; Pulse Ox 99% on R/A; hb 23:04 BP 114 / 64; Pulse 73; Resp 18; Pulse Ox 100% on R/A; Pain 0/10; kl ED Course: 17:31 Patient arrived in ED. rg4 18:09 Triage completed. iw 18:09 Arm band placed on. iw 19:57 Hernán Montenegro MD is Attending Physician. [facility] 20:38 Magnesium Sent. kl 20:38 Phosphorus Sent. kl 20:39 Lipase Sent. kl 20:39 LFT's Sent. kl 20:39 Basic Metabolic Panel Sent. kl 20:39 CBC with Diff Sent. kl 21:03 CT Head C Spine In Process Unspecified. EDMS 21:16 No apparent distress. Resting quietly. kl 22:00 No apparent distress. Resting quietly. Appears to be sleeping. kl 23:05 No provider procedures requiring assistance completed. IV discontinued, intact, kl bleeding controlled, No redness/swelling at site. Pressure dressing applied. Administered Medications: 20:38 Drug: NS 0.9% 1000 ml Route: IV; Rate: 1000 ml; Site: left antecubital; kl 20:42 Drug: morphine 4 mg Route: IVP; Infused Over: 4 mins; Site: left antecubital; kl 20:45 Drug: Reglan (metoCLOPramide) 10 mg Route: IM; Site: affected area; kl 23:05 Follow up: Response: No adverse reaction; Marked relief of symptoms kl 20:51 Drug: Benadryl (diphenhydrAMINE) 50 mg Route: IVP; Site: left antecubital; kl 23:05 Follow up: Response: No adverse reaction; Marked relief of symptoms kl 22:17 Drug: Ketorolac 30 mg Route: IVP; Site: left antecubital; kl 23:05 Follow up: Response: No adverse reaction; Marked relief of symptoms Outcome: 22:49 Discharge ordered by . [facility] 23:06 Patient left the ED. kl Signatures: Dispatcher [employer] EDWV Teri Bourne RN RN kl Williams, Irene, RN RN iw Baxter, Heather, RN RN hb Garcia, Rubi rg4 Hernán Montenegro MD MD [facility]
--- NOTE | 2021-09-28 22:50 | EDPHYS ---
Physician Documentation [facility] Name: Mike Daugherty Age: 41 yrs Sex: Male : 1980 Arrival Date: 09/28/2021 Time: 17:31 Bed 4 Private MD: ED Physician Hernán Montenegro HPI: 09/28 20:15 This 41 yrs old Male presents to ER via Ambulatory with complaints of Numbness. mh7 20:15 The patient or guardian complains of pain, that is acute. mh7 20:15 The symptoms are located on the left side of posterior neck. Onset: The mh7 symptoms/episode began/occurred 2 week(s) ago. Context: The problem was sustained at home, The neck injury/problem resulted from manipulation by "popping" neck. Associated signs and symptoms: Pertinent positives: headache, nausea, Paresthesias. The pain radiates to the base of the skull and occipital area and left shoulder. Modifying factors: The symptoms are alleviated by nothing. the symptoms are aggravated by movement. Severity of symptoms: At their worst the symptoms were moderate, 7 day(s) ago, in the emergency department the symptoms have improved, mildly. Also reports seeing a chiropractor yesterday who did some manipulation procedure on his neck.. Historical: - Allergies: 18:09 PENICILLINS; iw - Immunization history:: Adult Immunizations up to date. - Social history:: Smoking status: Patient denies any tobacco usage or history of. ROS: 20:15 Constitutional: Negative for fever, chills, and weight loss, Eyes: Negative for injury, mh7 pain, redness, and discharge, ENT: Negative for injury, pain, and discharge, Cardiovascular: Negative for chest pain, palpitations, and edema, Respiratory: Negative for shortness of breath, cough, wheezing, and pleuritic chest pain. 20:15 Back: Negative for injury and pain, : Negative for injury, bleeding, discharge, and swelling, MS/Extremity: Negative for injury and deformity, Skin: Negative for injury, rash, and discoloration. 20:15 Psych: Negative for depression, anxiety, suicide ideation, homicidal ideation, and hallucinations, Allergy/Immunology: Negative for hives, rash, and allergies, Endocrine: Negative for neck swelling, polydipsia, polyuria, polyphagia, and marked weight changes, Hematologic/Lymphatic: Negative for swollen nodes, abnormal bleeding, and unusual bruising. 20:15 Abdomen/GI: Negative for abdominal pain, vomiting, diarrhea, constipation, abdominal cramps, abdominal distension, anorexia, dysphagia, hematemesis, black/tarry stool, rectal pain, rectal bleeding, bowel incontinence, flatulence. 20:15 Neuro: Negative for altered mental status, dizziness, gait disturbance, hearing loss, loss of consciousness, seizure activity, speech changes, syncope, near syncope, tinnitus, tremor, visual changes, weakness. Exam: 20:15 Head/Face: Normocephalic, atraumatic. Eyes: Pupils equal round and reactive to light, mh7 extra-ocular motions intact. Lids and lashes normal. Conjunctiva and sclera are non-icteric and not injected. Cornea within normal limits. Periorbital areas with no swelling, redness, or edema. 20:15 Cardiovascular: Regular rate and rhythm with a normal S1 and S2. No gallops, murmurs, or rubs. Normal PMI, no JVD. No pulse deficits. Respiratory: Lungs have equal breath sounds bilaterally, clear to auscultation and percussion. No rales, rhonchi or wheezes noted. No increased work of breathing, no retractions or nasal flaring. Abdomen/GI: Soft, non-tender, with normal bowel sounds. No distension or tympany. No guarding or rebound. No evidence of tenderness throughout. Back: No spinal tenderness. No costovertebral tenderness. Full range of motion. Skin: Warm, dry with normal turgor. Normal color with no rashes, no lesions, and no evidence of cellulitis. MS/ Extremity: Pulses equal, no cyanosis. Neurovascular intact. Full, normal range of motion. Neuro: Awake and alert, GCS 15, oriented to person, place, time, and situation. Cranial nerves II-XII grossly intact. Motor strength 5/5 in all extremities. Sensory grossly intact. Cerebellar exam normal. Normal gait. Psych: Awake, alert, with orientation to person, place and time. Behavior, mood, and affect are within normal limits. 20:15 Constitutional: The patient appears in no acute distress, alert, awake, uncomfortable. 20:15 Neck: External neck: tenderness, that is moderate, of the occiput, left mid cervical area and left trapezius, C-spine: appears grossly normal, Thyroid: appears normal, Trachea: is midline with no obvious abnormalities, ROM/movement: pain, that is moderate, with rotation to the left, with rotation to the right, Meningeal signs: are not present, nuchal rigidity, is not appreciated, Lymph nodes: no appreciated lymphadenopathy, muscle spasm left paraspinal . 20:15 ENT: Nares patent. No nasal discharge, no septal abnormalities noted. Tympanic mh7 membranes are normal and external auditory canals are clear. Oropharynx with no redness, swelling, or masses, exudates, or evidence of obstruction, uvula midline. Mucous membranes moist. Chest/axilla: Normal chest wall appearance and motion. Nontender with no deformity. No lesions are appreciated. Vital Signs: 18:06 BP 125 / 82; Pulse 72; Resp 16; Temp 98.8; Pulse Ox 98% on R/A; iw 20:15 BP 144 / 85; Pulse 76; Resp 18; Pulse Ox 99% on R/A; Pain 9/10; kl 21:07 BP 138 / 82; Pulse 68; Resp 19; Pulse Ox 98% on R/A; hb 21:16 BP 125 / 77; Pulse 64; Resp 16; Pulse Ox 97% ; Pain 3/10; kl 22:17 BP 109 / 63; Pulse 64; Resp 16; Pulse Ox 99% on R/A; Pain 0/10; kl 22:48 BP 101 / 69; Pulse 64; Resp 15; Pulse Ox 99% on R/A; hb 23:04 BP 114 / 64; Pulse 73; Resp 18; Pulse Ox 100% on R/A; Pain 0/10; kl MDM: 22:47 Differential diagnosis: arthritis, C-Spine Fracture Cervical Disc Herniation Cervical mh7 Discogenic Pain Cervical Raiculopathy Cervical Spondylosis cervical strain, Osteoarthritis Simple Wedge Fracture Spondylolisthesis Spondylosis. Data reviewed: vital signs, nurses notes, lab test result(s), CBC, electrolytes, radiologic studies, CT scan. Data interpreted: Pulse oximetry: on room air is 99 %. Interpretation: normal. Counseling: I had a detailed discussion with the patient and/or guardian regarding: the historical points, exam findings, and any diagnostic results supporting the discharge/admit diagnosis, lab results, radiology results, the need for outpatient follow up, to return to the emergency department if symptoms worsen or persist or if there are any questions or concerns that arise at home. Response to treatment: the patient's symptoms have resolved after treatment, the patient's blood pressure is in an acceptable range, mental status has returned to baseline, the patient no longer shows bradycardia, the patient is not short of breath, the patient is not tachycardic, the patient's pain is gone, the patient's temperature has normalized, patient is well hydrated. 22:49 Patient medically screened. [facility] 09/28 20:23 Order name: CBC with Diff; Complete Time: 21:55 [facility] 09/28 20:23 Order name: Basic Metabolic Panel; Complete Time: 21:55 [facility] 09/28 20:23 Order name: LFT's; Complete Time: 21:55 [facility] 09/28 20:23 Order name: Lipase; Complete Time: 21:55 [facility] 09/28 20:23 Order name: Magnesium; Complete Time: 21:55 [facility] 09/28 20:23 Order name: Phosphorus; Complete Time: 21:55 [facility] 09/28 20:23 Order name: Saline Lock; Complete Time: 20:39 [facility] 09/28 20:27 Order name: CT Head C Spine; Complete Time: 21:55 Administered Medications: 20:38 Drug: NS 0.9% 1000 ml Route: IV; Rate: 1000 ml; Site: left antecubital; kl 20:42 Drug: morphine 4 mg Route: IVP; Infused Over: 4 mins; Site: left antecubital; kl 20:45 Drug: Reglan (metoCLOPramide) 10 mg Route: IM; Site: affected area; kl 23:05 Follow up: Response: No adverse reaction; Marked relief of symptoms kl 20:51 Drug: Benadryl (diphenhydrAMINE) 50 mg Route: IVP; Site: left antecubital; kl 23:05 Follow up: Response: No adverse reaction; Marked relief of symptoms kl 22:17 Drug: Ketorolac 30 mg Route: IVP; Site: left antecubital; kl 23:05 Follow up: Response: No adverse reaction; Marked relief of symptoms kl Disposition Summary: 09/28/21 22:49 Discharge Ordered Location: Home [facility] Problem: an ongoing problem [facility] Symptoms: have improved [facility] Condition: Stable [facility] Diagnosis - Cervicalgia [facility] - Headache [facility] Followup: [facility] - With: Private Physician - When: 1 - 2 days - Reason: Worsening of condition, Recheck today's complaints, Continuance of care, Re-evaluation by your physician Discharge Instructions: - Discharge Summary Sheet [facility] - General Headache Without Cause [facility] - Musculoskeletal Pain [facility] - Cervical Sprain, [id number] [facility] Forms: - Medication Reconciliation Form [facility] - Thank You Letter [facility] - Antibiotic Education [facility] - Prescription Opioid Use [facility] Prescriptions: - ketorolac 10 mg Oral tablet - take 1 tablet by ORAL route every 6 hours As needed not to exceed 40 mg in 7 24hrs; 15 tablet; Refills: 0, Product Selection Permitted - ondansetron 4 mg Oral tablet,disintegrating - place 1 tablet by TRANSLINGUAL route every 8 hours As needed; 10 tablet; mh7 Refills: 0, Product Selection Permitted - Cyclobenzaprine 10 mg Oral Tablet - take 1 tablet by ORAL route every 8 hours As needed; 30 tablet; Refills: 0, 7 Product Selection Permitted Signatures: Dispatcher [employer] EDPA Teri Bourne RN RN kl Williams, Irene, RN RN iw Baxter, Heather, RN RN hb Holmes, Maurice, MD MD [facility] Corrections: (The following items were deleted from the chart) 20:45 20:43 Head C Spine MPR Wo [id number].BRZ ordered. [facility] EDPA 22:47 20:15 Neck: External neck: tenderness, that is moderate, of the occiput, left mid [facility] cervical area and left trapezius, C-spine: appears grossly normal, Thyroid: appears normal, Trachea: is midline with no obvious abnormalities, ROM/movement: pain, that is moderate, with rotation to the left, with rotation to the right, Meningeal signs: are not present, nuchal rigidity, is not appreciated, Lymph nodes: no appreciated lymphadenopathy, [facility]
[2021-09-29 01:28] VITALS: TEMP 98.8
[2021-09-29 01:43] VITALS: BP 114/64; O2SAT 100
== END 2021-09-28 23:06 | disposition home or self-care (01) ==
LOC: ER 17:29
DX: R51.9 Headache, unspecified (principal); M54.2 Cervicalgia; Z88.0 Allergy status to penicillin
CPT/HCPCS: 36415; 70450; 72125; 80048; 80076; 83690; 83735; 84100; 85025; 96372; 96374; 96375; 99284; J1200; J2765; J7030

== ENCOUNTER 2021-11-06 17:41 | Emergency (ER) | payer SELFPAY ==
--- NOTE | 2021-11-06 18:25 | ER ---
Nurse's Notes [facility] Name: Mike Daugherty Age: 41 yrs Sex: Male : 1980 Arrival Date: 11/06/2021 Time: 17:43 Bed DIS1 Private MD: Diagnosis: Other pruritus Presentation: 11/06 17:48 Chief complaint: Patient states: athlete's foot started a week ago and now his whole ld1 body is itching. Ebola Screen: No symptoms or risks identified at this time. Onset: The symptoms/episode began/occurred last week. Anaphylaxis evaluation, no signs or symptoms of anaphylaxis were noted. Initial Sepsis Screen: Does the patient meet any 2 criteria? No. Patient's initial sepsis screen is negative. Does the patient have a suspected source of infection? No. Patient's initial sepsis screen is negative. Risk Assessment: Do you want to hurt yourself or someone else? Patient reports no desire to harm self or others. Onset of symptoms was October 30, 2021. 17:48 Method Of Arrival: Ambulatory ld1 17:48 Acuity: UTE 4 ld1 17:55 Coronavirus screen: Vaccine status: Patient reports receiving the 2nd dose of the covid ld1 vaccine. Triage Assessment: 17:55 General: Appears distressed, uncomfortable, Behavior is cooperative, appropriate for ld1 age, agitated. Pain: Complains of pain in top of head Pain does not radiate. Pain currently is 7 out of 10 on a pain scale. Quality of pain is described as burning, stinging, itching Pain began gradually, one week ago Is continuous. 18:07 Neuro: Level of Consciousness is awake, alert, obeys commands, Oriented to person, ld1 place, time, situation. Cardiovascular: Capillary refill < 3 seconds Patient's skin is warm and dry. Respiratory: Airway is patent Respiratory effort is even, unlabored. GI: No signs and/or symptoms were reported involving the gastrointestinal system. : No signs and/or symptoms were reported regarding the genitourinary system. Derm: one papule on chest, one on left foot, one on upper back. Historical: - Allergies: 17:52 PENICILLINS; ld1 - Home Meds: 17:52 None [Active]; ld1 - PMHx: 17:52 None; ld1 - PSHx: 17:52 None; ld1 - Immunization history:: Adult Immunizations unknown. - Social history:: Smoking status: Patient denies any tobacco usage or history of. Patient uses alcohol, occasionally. - Family history:: not pertinent. - Hospitalizations: : No recent hospitalization is reported. Screenin:35 Abuse screen: Denies threats or abuse. Nutritional screening: No deficits noted. ll1 Tuberculosis screening: No symptoms or risk factors identified. Fall Risk Total Alexander Fall Scale indicates No Risk (0-24 pts). Assessment: 18:35 Reassessment: No changes from previously documented assessment. Patient and/or family ll1 updated on plan of care and expected duration. Pain level reassessed. Patient is alert, oriented x 3, equal unlabored respirations, skin warm/dry/pink. 18:36 Respiratory: Airway is patent Breath sounds are clear bilaterally. ll1 Vital Signs: 17:55 BP 125 / 86; Pulse 69; Resp 18; Temp 97.8; Pulse Ox 99% on R/A; Weight 86.18 kg; Height ld1 5 ft. 7 in. (170.18 cm); Pain 7/10; 17:55 Body Mass Index 29.76 (86.18 kg, 170.18 cm) ld1 ED Course: 17:43 Patient arrived in ED. mr 17:52 Rhys Servin MD is Attending Physician. rn 17:52 Triage completed. ld1 18:07 Arm band placed on right wrist. ld1 18:25 Marlen Lantigua, STEWART is Primary Nurse. kb3 18:35 No provider procedures requiring assistance completed. Patient did not have IV access ll1 during this emergency room visit. 18:36 Patient has correct armband on for positive identification. Bed in low position. Call ll1 light in reach. Cardiac monitoring not applicable on this patient. Administered Medications: 18:35 Drug: hydrOXYzine 50 mg Route: PO; ll1 18:37 Follow up: Response: No adverse reaction ll1 18:35 Drug: DiFLUcan (fluconazole) 200 mg Route: PO; ll1 18:36 Follow up: Response: No adverse reaction ll1 Medication: 18:36 VIS not applicable for this client. ll1 Outcome: 18:24 Discharge ordered by . rn 18:36 Discharged to home ambulatory. ll1 18:36 Condition: stable 18:36 Discharge instructions given to patient, Instructed on discharge instructions, follow up and referral plans. no drinking with medication, no driving heavy equipment, medication usage, Demonstrated understanding of instructions, follow-up care, medications, Prescriptions given X 3. 18:36 Patient left the ED. ll1 Signatures: Dolly Dumont Roman, MD MD rn Lewis, Lynsay, RN RN ll1 Danica Toscano RN RN ld1 Marlen Lantigua RN RN kb3
--- NOTE | 2021-11-06 18:25 | EDPHYS ---
Physician Documentation [facility] Name: Mike Daugherty Age: 41 yrs Sex: Male : 1980 Arrival Date: 11/06/2021 Time: 17:43 Bed DIS1 Private MD: ED Physician Rhys Servin HPI: 11/06 18:17 This 41 yrs old Male presents to ER via Ambulatory with complaints of Itching. rn 18:17 The patient's rash thought to be caused by. The rash is located on the body diffusely. rn Onset: The symptoms/episode began/occurred 1 week(s) ago. Associated signs and symptoms: Pertinent negatives: difficulty breathing, fever, Pain swelling of lips, swelling of throat, swelling of tongue. Severity of symptoms: At their worst the symptoms were moderate in the emergency department the symptoms are unchanged. The patient has not experienced similar symptoms in the past. The patient has not recently seen a physician. Pt reports started with athletes foot, then progressed to itching "all over". Reports not improving. . Historical: - Allergies: 17:52 PENICILLINS; ld1 - Home Meds: 17:52 None [Active]; ld1 - PMHx: 17:52 None; ld1 - PSHx: 17:52 None; ld1 - Immunization history:: Adult Immunizations unknown. - Social history:: Smoking status: Patient denies any tobacco usage or history of. Patient uses alcohol, occasionally. - Family history:: not pertinent. - Hospitalizations: : No recent hospitalization is reported. ROS: 18:17 Constitutional: Negative for fever, chills, and weight loss, Cardiovascular: Negative rn for chest pain, palpitations, and edema, Respiratory: Negative for shortness of breath, cough, wheezing, and pleuritic chest pain, Abdomen/GI: Negative for abdominal pain, nausea, vomiting, diarrhea, and constipation, Skin: + itching Neuro: Negative for headache, weakness, numbness, tingling, and seizure. Exam: 18:17 Constitutional: This is a well developed, well nourished patient who is awake, alert, rn and in no acute distress. Ambulatory to room without difficulty or assistance, actively scratching. Head/Face: Normocephalic, atraumatic. Respiratory: No increased work of breathing, no retractions or nasal flaring. Skin: No obvious rash/erythema but excoriations throughout, no bullae. Vital Signs: 17:55 BP 125 / 86; Pulse 69; Resp 18; Temp 97.8; Pulse Ox 99% on R/A; Weight 86.18 kg; Height ld1 5 ft. 7 in. (170.18 cm); Pain 7/10; 17:55 Body Mass Index 29.76 (86.18 kg, 170.18 cm) ld1 MDM: 17:52 Patient medically screened. rn 18:17 Differential diagnosis: fungal infection, scabies, pruritus. Data reviewed: vital rn signs, nurses notes, and as a result, I will discharge patient. Counseling: I had a detailed discussion with the patient and/or guardian regarding: the historical points, exam findings, and any diagnostic results supporting the discharge/admit diagnosis, the need for outpatient follow up, to return to the emergency department if symptoms worsen or persist or if there are any questions or concerns that arise at home. Special discussion: I discussed with the patient/guardian in detail that at this point there is no indication for admission to the hospital. It is understood, however, that if the symptoms persist or worsen the patient needs to return immediately for re-evaluation. Administered Medications: 18:35 Drug: hydrOXYzine 50 mg Route: PO; ll1 18:37 Follow up: Response: No adverse reaction ll1 18:35 Drug: DiFLUcan (fluconazole) 200 mg Route: PO; ll1 18:36 Follow up: Response: No adverse reaction ll1 Disposition Summary: 11/06/21 18:24 Discharge Ordered Location: Home rn Problem: new rn Symptoms: have improved rn Condition: Stable rn Diagnosis - Other pruritus rn Followup: rn - With: Private Physician - When: As needed - Reason: Recheck today's complaints, Re-evaluation by your physician Discharge Instructions: - Discharge Summary Sheet rn - Pruritus rn Forms: - Medication Reconciliation Form rn - Thank You Letter rn - Antibiotic government affairs manager - Prescription Opioid Use rn Prescriptions: - permethrin 5 % Topical cream - apply 1 application by TOPICAL route once daily for 7 days leave on for 8-14 rn hr, then remove by thorough washing; 1 tube; Refills: 0, Product Selection Permitted - Hydroxyzine HCl 50 mg Oral Tablet - take 1 tablet by ORAL route every 8 hours As needed; 20 tablet; Refills: 0, rn Product Selection Permitted - Fluconazole 150 mg Oral Tablet - take 1 tablet by ORAL route once daily for 7 days; 7 tablet; Refills: 0, rn Product Selection Permitted Signatures: Rhys Servin MD MD rn Lewis, Lynsay, RN RN ll1 Danica Toscano RN RN ld1
[2021-11-06] MEDS ORDERED: FLUCONAZOLE 100 MG TAB ONE (18:41)
[2021-11-06] MEDS ORDERED: hydrOXYzine HCL 25 MG TAB ONE (18:41)
[2021-11-06 21:49] VITALS: BP 125/86; TEMP 97.8; O2SAT 99
== END 2021-11-06 18:36 | disposition home or self-care (01) ==
LOC: ER 17:41
DX: L29.8 Other pruritus (principal); Z88.0 Allergy status to penicillin
CPT/HCPCS: 99283

== ENCOUNTER 2022-04-25 19:37 | Emergency (ER) | payer OTHER, SELFPAY ==
--- OUTSIDE RECORDS SUMMARY | 2022-04-25 19:40 | XMS REPORT | Continuity of Care Document ---
:1980 Author Organization [facility] t Address [address] [place] [address] Care Team Providers Name Role Phone ALF PANDA Attending Clinician Unavailable CHACHO RICHTER Attending Clinician Unavailable DONTAE STEWART Attending Clinician Unavailable PL, TECH 1 Attending Clinician Unavailable MD JULIO Attending Clinician Unavailable Payers Payer Name Policy Type Policy Number Effective Date Expiration Date Yousuf atwood [employer]/P 2 [id number] 2022 00:00:00 PO Problems Condition Condition Condition Status Onset Resolution Last Treating Co mments Source Name Details Category Date Date Treatment Clinician Date Neck pain Neck pain Disease Active Arnaldo sey 1-24 Seybold 00:00: - 00 Externa l Itching Itching Disease Active Marilyn with with 1-24 Seybold irritation irritation 00:00: - 00 Externa l Gastroesop Gastroesop Disease Active K elsey hageal hageal 1-24 Seybold reflux reflux 00:00: - disease disease 00 Externa without without l esophagiti esophagiti s s Decreased Decreased Disease Active Arnaldo sey libido libido 1-24 Seybold 00:00: - 00 Externa l Snoring Snoring Disease Active Marilyn 1-24 Seybold 00:00: - 00 Externa l Class 2 Class 2 Disease Active Marilyn obesity obesity 1-24 Seybold due to due to 00:00: - excess excess 00 Externa calories calories l without without serious serious comorbidit comorbidit y with y with body mass body mass index index (BMI) of (BMI) of 36.0 to 36.0 to 36.9 in 36.9 in adult adult Tension Tension Disease Active Marilyn headache headache 1-24 Seybol d 00:00: - 00 Externa l Allergies, Adverse Reactions, Alerts Allergy Allergy Status Severity Reaction(s) Onset Inactive Treating Comm ents Source Name Type Date Date Clinician Penicill Malinaensi Active Other Marilyn ins ty to 04-24 reaction( Seybold adverse 00:00: s): Hives - reaction 00 Externa s l Social History Social Habit Start Date Stop Date Quantity Comments Source History SDOH Marilyn Murphy ld - Alcohol Frequency Externa l History SDOH Marilyn newman - 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 KEYOH Marilyn newman - Alcohol Binge External History of tobacco Smoker Marilyn Gee - use External Alcohol Comment 2022-03-26 2022-03-26 sober for years Oralia Gee - 00:00:00 00:00:00 External Education 2022-03-26 2022-03-26 11 Marilyn Gee - 00:00:00 00:00:00 External Cigarettes smoked 2022-03-26 2022-03-26 Marilyn Gee - current (pack per 00:00:00 00:00:00 Externa l day) - Reported Cigarette 2022-03-26 2022-03-26 Marilyn Gee - pack-years 00:00:00 00:00:00 External Tobacco use and 2022-03-26 2022-03-26 Smokeless tobacco Ke gio Gee - exposure 00:00:00 00:00:00 non-user External Alcohol intake 2022-03-26 2022-03-26 Ex-drinker Marilyn macdonald - 00:00:00 00:00:00 (finding) External Sex Ass[birth year] At [birth year] Marilyn negron - 00:00:00 00:00:00 External Smoking Status Start Date Stop Date Source Ex-smoker 2022-03-26 00:00:00 2022-03-26 00:00:00 Marilyn [place] - External Medications Ordered Filled Start Stop Current Ordering Indication Dosage Frequency Signature Comments Components Source Medication Medication Date Date Medication? Clinician (SIG) Name Name Cetirizine Yes 10mg Take 10 mg K elsey (ZYRTEC) 10 1-24 by mouth Seyb old MG oral 16:26: daily - Tablet 02 Externa l predniSONE Yes [id number] 10mg Take 1 Marilyn (DELTASONE) 1-24 tablet (10 Se ybold 10 MG oral 00:00: mg total) - tablet 00 by mouth Externa daily l Tizanidine Yes [id number] 2mg Q.5D Take 1 K elsey HCl 2 MG 1-24 tablet (2 Seybol d oral Tablet 00:00: mg total) - 00 by mouth 2 Externa times l daily as needed for muscle spasms Famotidine Yes [id number] 20mg Take 1 Marilyn (Pepcid) 20 1-24 tablet (20 Se ybold MG oral 00:00: mg total) - tablet 00 by mouth 2 Externa times l daily Vital Signs Vital Name Observation Time Observation Value Comments Source Systolic blood 2022-03-26 21:53:00 130 mm[Hg] Marilyn Seybold - pressure External Diastolic blood 2022-03-26 21:53:00 70 mm[Hg] Sean barajas Seybold - pressure External Heart rate 2022-03-26 21:53:00 116 /min Marilyn [place] - External Body temperature 2022-03-26 21:53:00 37.06 Nahomy Oralia naranjo Seybold - External Respiratory rate 2022-03-26 21:53:00 16 /min Oralia naranjo Seybold - External Body height 2022-03-26 21:53:00 170.2 cm Marilyn naranjobotrent - External Body weight 2022-03-26 21:53:00 106.595 kg Marilyn naranjobotrent - External BMI 2022-03-26 21:53:00 36.81 kg/m2 Marilyn naranjobotrent - External Procedures This patient has no known procedures. Encounters Start End Encounter Admission Attending Care Care Encounter Source Date/Time Date/Time Type Type Clinicians Facility Department ID 2022-05-31 2022-05-31 Outpatient ALF PANDA [id number] Marilyn 13:00:00 13:00:00 Seybol d 2022-04-26 2022-04-26 Outpatient PREZAS, MARILYN JOHNSON [id number] Marilyn 16:00:00 16:00:00 CHACHO Seybol d 2022-04-26 2022-04-26 Outpatient MARILYN JOHNSON [id number] Marilyn 11:15:00 11:15:00 Seybol d 2022-04-24 2022-04-24 Outpatient PREZAS, MARILYN JOHNSON [id number] Marilyn 00:00:00 00:00:00 CHACHO Seybol d 2022-04-24 2022-04-24 Outpatient MARILYN STEWART [id number] Marilyn 00:00:00 00:00:00 DONTAE Seybol d 2022-04-24 2022-04-24 Outpatient PREZASMARILYN [id number] Marilyn 00:00:00 00:00:00 CHACHO Seybol d 2022-04-23 2022-04-23 Outpatient PREZASMARILYN [id number] Marilyn 00:00:00 00:00:00 CHACHO Seybol d 2022-04-23 2022-04-23 Outpatient PREZASMARILYN [id number] Marilyn 00:00:00 00:00:00 CHACHO Seybol d 2022-04-18 2022-04-18 Outpatient SHARRON LIN [id number] Marilyn 16:30:00 16:30:00 Seybol d 2022-04-18 2022-04-18 [facility] [facility] [place] [id number] Marilyn 00:00:00 00:00:00 MD DK Seybol d 2022-04-08 2022-04-08 Outpatient PREZASMARILYN [id number] Marilyn 00:00:00 00:00:00 CHACHO Seybol d 2022-04-08 2022-04-08 Outpatient PREZAMARILYN To [id number] Marilyn 00:00:00 00:00:00 CHACHO Seybol d 2022-04-05 2022-04-05 Outpatient PREZASMARILYN [id number] Marilyn 00:00:00 00:00:00 CHACHO Seybol d 2022-04-04 2022-04-04 Outpatient MARILYN RICHTER [id number] Marilyn 00:00:00 00:00:00 CHACHO Seybol d 2022-04-04 2022-04-04 Outpatient MARILYN RICHTER [id number] Marilyn 00:00:00 00:00:00 CHACHO Seybol d 2022 2022 Outpatient MARILYN RICHTER [id number] Marilyn 00:00:00 00:00:00 CHACHO Seybol d 2022-03-27 2022-03-27 Outpatient MARILYN RICHTER [id number] Marilyn 00:00:00 00:00:00 CHACHO Seybol d 2022-03-26 2022-03-26 Outpatient MARILYN RICHTER [id number] Marilyn 16:15:00 16:15:00 CHACHO Seybol d Results This patient has no known results.
[2022-04-25 20:25] LABS: Absolute Lymphocytes (CBC) 3.1 K/uL (0.7-4.9); Hematocrit 44.2 % (39.6-49.0); Lymphocytes % 30.9 % (15.3-44.8); MPV 9.2 fL (7.6-11.3); RBC Red Blood Cell Count 5.26 M/uL (4.33-5.43)
[2022-04-25] MEDS ORDERED: FENTANYL CITR 100 MCG/2 ML ONE (20:26)
[2022-04-25] MEDS ORDERED: dexAMETHasone 10 MG/ML VIAL ONE (20:27)
[2022-04-25] MEDS ORDERED: ONDANSETRON 4 MG/2 ML VIAL ONE (20:27)
[2022-04-25 20:56] LABS: Potassium 3.5 mmol/L (3.5-5.1); Troponin High Sensitivity 3.4 pg/mL (<58.9)
--- NOTE | 2022-04-25 21:00 | RAD REPORT ---
EXAM DESCRIPTION: CT - CTHCSPWOC - 04/25/2022 8:44 pm CLINICAL HISTORY: Trauma, head and neck injury. head/neck pain COMPARISON: Head C Spine Mpr Wo Con dated 09/28/2021; Head C Spine Mpr Wo Con dated 09/23/2021; Head C Spine Mpr Wo Con dated 04/14/2018 TECHNIQUE: Axial 5 mm thick images of the head were obtained. Axial 2 mm thick images of the cervical spine were obtained with sagittal and coronal reconstruction images generated and reviewed. All CT scans are performed using dose optimization technique as appropriate and may include automated exposure control or mA/KV adjustment according to patient size. FINDINGS: CT HEAD WITHOUT CONTRAST: No acute hemorrhage, hydrocephalus or extra-axial collection is identified.No areas of brain edema or midline shift. The paranasal sinuses and mastoids are clear.The calvarium is intact. CT CERVICAL SPINE WITHOUT CONTRAST: No fracture or subluxation.No prevertebral soft tissues swelling is identified. IMPRESSION: No acute intracranial or cervical spine findings.
[2022-04-25] MEDS ORDERED: METOCLOPRAMIDE 10 MG/2mL INJ ONE (22:03)
[2022-04-25] MEDS ORDERED: DIAZEPAM 10 MG/2 ML INJ SYRINGE ONE (22:04)
[2022-04-25] MEDS ORDERED: KETOROLAC 30 MG/ML INJ ONE (22:04)
[2022-04-25] MEDS ORDERED: NA CHLORIDE 0.9% 50 ML ONE (22:05)
--- NOTE | 2022-04-25 22:17 | RAD REPORT ---
EXAM DESCRIPTION: CT - Neck Angio - 04/25/2022 10:03 pm CLINICAL HISTORY: PAIN COMPARISON: No comparisonsHead C Spine Mpr Wo Con dated 04/25/2022; Head C Spine Mpr Wo Con dated 09/01; Head C Spine Mpr Wo Con dated 09/23/2021; Head C Spine Mpr Wo Con dated 04/14/2018 TECHNIQUE: CT angiography of the neck vessels was performed with MIPs. All CT scans are performed using dose optimization technique as appropriate and may include automated exposure control or mA/KV adjustment according to patient size. FINDINGS: Aberrant right subclavian artery. No significant flow abnormality is seen of the common carotid bilaterally. No significant stenosis is identified involving the cervical segments of both internal carotid arteri es. The proximal right vertebral artery is obscured by streak artifact from the dense contrast. The left vertebral artery is patent. Excluding the proximal portion of the right vertebral artery, the vessel is otherwise widely patent. Left dominant. IMPRESSION: No significant flow abnormality of the neck vessels is identified.
--- NOTE | 2022-04-25 22:19 | RAD REPORT ---
EXAM DESCRIPTION: CT - Head angio - 04/25/2022 10:03 pm CLINICAL HISTORY: PAIN COMPARISON: Head Brain Wo Cont dated 03/01/2017 TECHNIQUE: CT angiography of the head was performed with MIPs. All CT scans are performed using dose optimization technique as appropriate and may include automated exposure control or mA/KV adjustment according to patient size. FINDINGS: Anterior circulation: No aneurysm or large vessel occlusion. No hemodynamically significant stenosis. No arteriovenous malf ormation identified. Posterior circulation: No aneurysm or large vessel occlusion. No hemodynamically significant stenosis. No arteriovenous malf ormation identified. IMPRESSION: No significant flow abnormality is detected.
--- NOTE | 2022-04-26 01:21 | EDPHYS ---
Physician Documentation [facility] Name: Mike Daugherty Age: 42 yrs Sex: Male : 1980 Arrival Date: 04/25/2022 Time: 19:41 Bed 2 Private MD: ED Physician Rhys Servin HPI: 04/25 20:15 This 42 yrs old Male presents to ER via Ambulatory with complaints of Headache, Neck cp and Upper Back Pain. 20:15 The patient complains of pain to the back of head. Onset: The symptoms/episode cp began/occurred months ago. 20:15 The patient describes the headache as aching, constant. cp 20:15 Associated signs and symptoms: Pertinent positives: neck pain, Pertinent negatives: cp fever, weakness, radiating pain to upper extremities, paresthesias of upper extremities, weakness of upper extremities, decreased bailiff strength. Severity of symptoms: in the emergency department the pain is unchanged, despite home interventions. Patient denies any trauma to head and/or neck but reports history over the years of self adjusting his neck. Patient reports having upcoming appointment with DR Martinez for evaluation. Historical: - Allergies: 19:50 PENICILLINS; tw5 - Home Meds: 19:50 None [Active]; tw5 - PMHx: 19:50 None; tw5 - PSHx: 19:50 Appendectomy; tw5 - Immunization history:: Flu vaccine is not up to date. - Social history:: Smoking status: Patient denies any tobacco usage or history of. ROS: 20:20 Constitutional: Negative for body aches, chills, fever, poor PO intake. cp 20:20 Eyes: Negative for injury, pain, redness, and discharge. cp 20:20 ENT: Negative for drainage from ear(s), ear pain, sore throat, difficulty swallowing, difficulty handling secretions. 20:20 Cardiovascular: Negative for chest pain, edema, palpitations. 20:20 Neck: Positive for pain with movement, pain at rest, tenderness. cp 20:20 Respiratory: Negative for cough, shortness of breath, wheezing. 20:20 Abdomen/GI: Negative for abdominal pain, vomiting, diarrhea, constipation. 20:20 Back: Negative for pain at rest, pain with movement. 20:20 Skin: Negative for rash. 20:20 Neuro: Positive for headache, Negative for altered mental status, dizziness, numbness, tingling, weakness. 20:20 All other systems are negative. Exam: 20:25 Constitutional: The patient appears in no acute distress, alert, awake, cp non-diaphoretic, non-toxic, well developed, well nourished, uncomfortable. 20:25 Head/Face: Normocephalic, atraumatic. cp 20:25 Eyes: Periorbital structures: appear normal, Conjunctiva: normal, no exudate, no injection, Sclera: no appreciated abnormality, Lids and lashes: appear normal, bilaterally. 20:25 ENT: External ear(s): are unremarkable, Nose: is normal, Mouth: Lips: moist, Oral mucosa: pink and intact, moist, Posterior pharynx: Airway: no evidence of obstruction, patent. 20:25 Neck: External neck: tenderness, that is moderate, of the occiput, left mid cervical area, right mid cervical area, left trapezius, lower cervical area and right trapezius, C-spine: crepitus, is not appreciated, ROM/movement: pain, that is moderate, with any movement, limited range of motion, is not appreciated, nuchal rigidity, is not appreciated. 20:25 Chest/axilla: Inspection: normal. 20:25 Cardiovascular: Rate: normal, Rhythm: regular, Heart sounds: murmur, not appreciated, Edema: is not appreciated, JVD: is not appreciated. 20:25 Respiratory: the patient does not display signs of respiratory distress, Respirations: normal, no use of accessory muscles, no retractions, labored breathing, is not present, Breath sounds: are clear throughout, no decreased breath sounds, no stridor, no wheezing. 20:25 Abdomen/GI: Inspection: abdomen appears normal, Palpation: abdomen is soft and non-tender, in all quadrants. 20:25 Back: pain, that is moderate, of the thoracic area, ROM is painful, with all movement. 20:25 Neuro: Orientation: to person, place \T\ time. Mentation: is normal, Motor: moves all fours, strength is normal, Sensation: is normal, Deep tendon reflexes are 2+ (normal) in the right tricep, right bicep, right brachioradialis, left bicep, left tricep and left brachioradialis. 20:27 ECG was reviewed by the Attending Physician. Vital Signs: 19:46 BP 117 / 83; Pulse 89; Resp 18; Temp 97.9; Pulse Ox 94% on R/A; Weight 99.79 kg; Height tw5 5 ft. 7 in. (170.18 cm); Pain 10/10; 21:25 BP 119 / 74; Pulse 71; Resp 13; Pulse Ox 93% on R/A; kd3 22:28 BP 108 / 72; Pulse 81; Resp 19; Pulse Ox 95% on R/A; kd3 23:01 BP 106 / 65; Pulse 75; Resp 16; Pulse Ox 99% on R/A; kd3 04/26 00:23 BP 122 / 72; Pulse 82; Resp 21 S; Pulse Ox 94% on R/A; as6 04/25 19:46 Body Mass Index 34.46 (99.79 kg, 170.18 cm) tw5 MDM: 04/25 19:54 Patient medically screened. cp 21:00 Differential diagnosis: cluster headache, intracerebral hemorrhage, migraine, cp subarachnoid bleed, tension headache, bulging disc. 04/26 01:20 Data reviewed: vital signs, nurses notes, lab test result(s), EKG, radiologic studies, cp CT scan. 01:20 Consideration of Admission/Observation Escalation of care including cp admission/observation considered. I considered the following discharge prescriptions or medication management in the emergency department Medications were administered in the Emergency Department. See MAR. Test considered but Not performed: MRI: brain and cervical spine. Counseling: I had a detailed discussion with the patient and/or guardian regarding: the historical points, exam findings, and any diagnostic results supporting the discharge/admit diagnosis, lab results, radiology results, the need for outpatient follow up, a family practitioner, to return to the emergency department if symptoms worsen or persist or if there are any questions or concerns that arise at home. Response to treatment: the patient's symptoms have markedly improved after treatment, and as a result, I will discharge patient. 04/25 20:10 Order name: Basic Metabolic Panel 04/25 20:10 Order name: CBC with Diff 04/25 20:10 Order name: NT PRO-BNP 04/25 20:10 Order name: Troponin HS 04/25 20:26 Order name: CBC with Automated Diff; Complete Time: 20:48 EDMS 04/25 20:48 Interpretation: Normal except: EOSINOPHIL % 4.7. cp 04/25 20:56 Order name: Basic Metabolic Panel; Complete Time: 21:26 EDMS 04/25 21:26 Interpretation: Normal except: GFR 74. cp 04/25 20:10 Order name: CT Head C Spine cp 04/25 20:56 Order name: Troponin High Sensitivity; Complete Time: 21:26 EDMS 04/25 20:56 Order name: NT PRO-BNP; Complete Time: 21:26 EDMS 04/25 21:01 Order name: CT; Complete Time: 21:26 EDMS 04/25 21:27 Order name: CT Neck Angio cp 04/25 21:27 Order name: CT Head Angio cp 04/25 22:18 Order name: CT; Complete Time: 01:14 EDMS 04/25 22:20 Order name: CT; Complete Time: 01:14 EDMS 04/25 20:10 Order name: EKG; Complete Time: 20:11 cp 04/25 20:10 Order name: Cardiac monitoring; Complete Time: 20:28 cp 04/25 20:10 Order name: EKG - Nurse/Tech; Complete Time: 20:28 cp 04/25 20:10 Order name: IV Saline Lock; Complete Time: 20:20 cp 04/25 20:10 Order name: Labs collected and sent; Complete Time: 20:20 cp 04/25 20:10 Order name: O2 Per Protocol; Complete Time: 20:28 cp 04/25 20:10 Order name: O2 Sat Monitoring; Complete Time: 20:28 cp EC/23 20:27 Rate is 78 beats/min. Rhythm is regular. ME interval is normal. QRS interval is normal. cp QT interval is normal. T waves are Inverted in lead aVR. Interpreted by me. Reviewed by me. Administered Medications: 20:28 Drug: fentaNYL (PF) 25 mcg Route: IVP; Site: right antecubital; 04/26 01:23 Follow up: Response: No adverse reaction; Pain is decreased kd3 04/25 20:28 Drug: Decadron - Dexamethasone 10 mg Route: IVP; Site: right antecubital; 04/26 01:23 Follow up: Response: No adverse reaction; Pain is decreased kd3 04/25 20:28 Drug: Zofran (Ondansetron) 4 mg Route: IVP; Site: right antecubital; as6 04/26 01:22 Follow up: Response: Nausea is decreased kd3 04/25 21:27 CANCELLED (Physician Discretion): Benadryl (diphenhydrAMINE) 25 mg IVP once cp 22:28 Drug: Ketorolac 30 mg Route: IVP; Site: right antecubital; kd3 04/26 01:22 Follow up: Response: No adverse reaction; Pain is decreased kd3 04/25 22:28 Drug: Reglan (metoCLOPramide) 10 mg Route: IVP; Site: right antecubital; kd3 04/26 01:22 Follow up: Response: No adverse reaction; Pain is decreased kd3 04/25 22:28 Drug: Diazepam 5 mg Route: IVP; Site: right antecubital; kd3 04/26 01:22 Follow up: Response: No adverse reaction kd3 Disposition Summary: 04/26/22 01:20 Discharge Ordered Location: Home cp Problem: an ongoing problem cp Symptoms: have improved cp Condition: Stable cp Diagnosis - Cervicalgia cp - Headache cp Followup: cp - With: Espinoza Martinez DO - When: 1 - 2 days - Reason: Recheck today's complaints Discharge Instructions: - Discharge Summary Sheet cp - Tension Headache, Adult cp - Neck Exercises cp Forms: - Medication Reconciliation Form cp - Thank You Letter cp - Antibiotic Education cp - Prescription Opioid Use cp Prescriptions: - Baclofen 10 mg Oral Tablet - take 1 tablet by ORAL route 3 times per day; 20 tablet; Refills: 0, Product cp Selection Permitted - Diclofenac Sodium 75 mg Oral Tablet Sustained Release - take 1 tablet by ORAL route 2 times per day; 30 tablet; Refills: 0, Product cp Selection Permitted - Zofran 4 mg Oral Tablet - take 1 tablet by ORAL route every 12 hours As needed; 20 tablet; Refills: 0, cp Product Selection Permitted - Medrol (Ken) 4 mg Oral Tablets, Dose Pack - take 1 tablet by ORAL route as directed - follow package instructions; 1 cp packet; Refills: 0, Product Selection Permitted Addendum: 04/28/2022 07:41 Co-signature as Attending Physician, Rhys Servin MD I reviewed the patient's care r n provided by the Advanced Practice Provider and agree with the diagnosis and treatment plan. Signatures: Dispatcher [employer] EDMS Rhys Servin MD MD rn Lauri Guevara PA PA cp Wood, Tiffany tw5 Bryan Singletary RN RN as6 Dawn Ghotra RN RN kd3 Corrections: (The following items were deleted from the chart) 04/25 21:27 21:27 Benadryl (diphenhydrAMINE) 25 mg IVP once ordered. cp cp
--- NOTE | 2022-04-26 01:21 | ER ---
Nurse's Notes [facility] Name: Mike Daugherty Age: 42 yrs Sex: Male : 1980 Arrival Date: 04/25/2022 Time: 19:41 Bed 2 Private MD: Diagnosis: Cervicalgia;Headache Presentation: 04/25 19:46 Chief complaint: Patient states: "I have popped my neck for years, last time I came in [facility] I started feeling burning and nausea. Right now I feel like there is pressure in the back of my head, it is nonstop uncomfortable pain. I think I did something to my neck.". Coronavirus screen: Vaccine status: Patient reports receiving the 2nd dose of the covid vaccine. [place]. Ebola Screen: Patient negative for fever greater than or equal to 101.5 degrees Fahrenheit, and additional compatible Ebola Virus Disease symptoms Patient denies exposure to infectious person. Patient denies travel to an Ebola-affected area in the 21 days before illness onset. Initial Sepsis Screen: Does the patient meet any 2 criteria? No. Patient's initial sepsis screen is negative. Does the patient have a suspected source of infection? No. Patient's initial sepsis screen is negative. Risk Assessment: Do you want to hurt yourself or someone else? Patient reports no desire to harm self or others. 19:46 Method Of Arrival: Ambulatory [facility] 19:46 Acuity: UTE 3 [facility] 21:25 Onset of symptoms was April 25, 2022. kd3 Triage Assessment: 19:50 Headache History: The patient has had previous headaches and this one is different than tw5 previous episodes. General: Appears in no apparent distress. Behavior is calm, cooperative, appropriate for age. Pain: Pain currently is 10 out of 10 on a pain scale. Pain began "It has been going on for a while." Also complains of constipation, nausea. Neuro: Level of Consciousness is awake, alert, obeys commands, Oriented to person, place, time, situation. Historical: - Allergies: 19:50 PENICILLINS; tw5 - Home Meds: 19:50 None [Active]; tw5 - PMHx: 19:50 None; tw5 - PSHx: 19:50 Appendectomy; tw5 - Immunization history:: Flu vaccine is not up to date. - Social history:: Smoking status: Patient denies any tobacco usage or history of. Screenin:52 [facility] [place] ED Fall Risk Assessment (Adult) History of falling in the last 3 months, tw5 including since admission. Abuse screen: Denies threats or abuse. Denies injuries from another. Nutritional screening: No deficits noted. Tuberculosis screening: No symptoms or risk factors identified. Assessment: 21:31 General: Appears uncomfortable, Behavior is calm, cooperative. Pain: Complains of pain as6 in neck. Neuro: Level of Consciousness is awake, alert, obeys commands, Oriented to person, place, time, situation, Reports headache. Respiratory: Respiratory effort is even, unlabored. GI: Reports nausea. 23:01 General: pt noted, resting in bed, eyes closed, snoring. . kd3 04/26 00:23 Reassessment: Patient states feeling better. as6 Vital Signs: 04/25 19:46 BP 117 / 83; Pulse 89; Resp 18; Temp 97.9; Pulse Ox 94% on R/A; Weight 99.79 kg; Height tw5 5 ft. 7 in. (170.18 cm); Pain 10/10; 21:25 BP 119 / 74; Pulse 71; Resp 13; Pulse Ox 93% on R/A; kd3 22:28 BP 108 / 72; Pulse 81; Resp 19; Pulse Ox 95% on R/A; kd3 23:01 BP 106 / 65; Pulse 75; Resp 16; Pulse Ox 99% on R/A; kd3 04/26 00:23 BP 122 / 72; Pulse 82; Resp 21 S; Pulse Ox 94% on R/A; as6 04/25 19:46 Body Mass Index 34.46 (99.79 kg, 170.18 cm) tw5 ED Course: 04/25 19:41 Patient arrived in ED. jj6 19:47 Lauri Guevara PA is PHCP. cp 19:47 Rhys Servin MD is Attending Physician. cp 19:50 Triage completed. tw5 19:50 Arm band placed on. tw5 19:52 Patient has correct armband on for positive identification. tw5 20:10 Bryan Singletary, STEWART is Primary Nurse. as6 20:20 Inserted saline lock: 20 gauge in right antecubital area, using aseptic technique. as6 Blood collected. 20:21 Basic Metabolic Panel Sent. as6 20:21 CBC with Diff Sent. 20:21 NT PRO-BNP Sent. : Troponin HS Sent. 04/26 01:20 Espinoza Martinez DO is Referral Physician. cp 01:27 No provider procedures requiring assistance completed. IV discontinued, intact, kd3 bleeding controlled, No redness/swelling at site. Pressure dressing applied. Administered Medications: 04/25 20:28 Drug: fentaNYL (PF) 25 mcg Route: IVP; Site: right antecubital; as6 04/26 01:23 Follow up: Response: No adverse reaction; Pain is decreased kd3 04/25 20:28 Drug: Decadron - Dexamethasone 10 mg Route: IVP; Site: right antecubital; as04/26 01:23 Follow up: Response: No adverse reaction; Pain is decreased kd3 04/25 20:28 Drug: Zofran (Ondansetron) 4 mg Route: IVP; Site: right antecubital; as6 04/26 01:22 Follow up: Response: Nausea is decreased kd3 04/25 21:27 CANCELLED (Physician Discretion): Benadryl (diphenhydrAMINE) 25 mg IVP once cp 22:28 Drug: Ketorolac 30 mg Route: IVP; Site: right antecubital; kd3 04/26 01:22 Follow up: Response: No adverse reaction; Pain is decreased kd3 04/25 22:28 Drug: Reglan (metoCLOPramide) 10 mg Route: IVP; Site: right antecubital; kd3 04/26 01:22 Follow up: Response: No adverse reaction; Pain is decreased kd3 04/25 22:28 Drug: Diazepam 5 mg Route: IVP; Site: right antecubital; kd3 04/26 01:22 Follow up: Response: No adverse reaction kd3 Medication: 04/25 21:25 VIS not applicable for this client. kd3 Outcome: 04/26 01:20 Discharge ordered by . cp 01:27 Discharged to home ambulatory. kd3 01:27 Condition: stable 01:27 Discharge instructions given to patient, Instructed on discharge instructions, follow up and referral plans. Demonstrated understanding of instructions, follow-up care, medications, Prescriptions given X 4. 01:33 Patient left the ED. kd3 Signatures: Lauri Guevara PA PA cp Wood, Tiffany tw5 Dayana Mckeon jj6 Bryan Singletary, RN RN as6 Dawn Ghotra RN RN kd3
[2022-04-26 02:11] VITALS: TEMP 97.9
[2022-04-26 02:29] VITALS: BP 122/72; O2SAT 94
--- NOTE | 2022-04-26 13:20 | EKG ---
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
== END 2022-04-26 01:33 | disposition home or self-care (01) ==
LOC: ER 19:37
DX: M54.2 Cervicalgia (principal); R51.9 Headache, unspecified; Z88.0 Allergy status to penicillin
CPT/HCPCS: 93005; 85025; 80048; 36415; 84484; 83880; 70450; 72125; 70496; 70498; 96375; 96374; 99284; Q9967; J2765; J3360; J3010; J1100; J2405

== ENCOUNTER 2022-05-10 17:57 | Emergency (ER) | payer OTHER ==
--- OUTSIDE RECORDS SUMMARY | 2022-05-10 17:59 | XMS REPORT | Continuity of Care Document ---
:1980 Author Organization [facility] t Address [address] [place] [address] Care Team Providers Name Role Phone ALF PANDA Attending Clinician Unavailable CHACHO RICHTER Attending Clinician Unavailable LAB90 Attending Clinician Unavailable DONTAE STEWART Attending Clinician Unavailable PL, TECH 1 Attending Clinician Unavailable MD JULIO Attending Clinician Unavailable Payers Payer Name Policy Type Policy Number Effective Date Expiration Date Yousuf atwood [employer]/P 2 [id number] 2022 00:00:00 PO Problems Condition Condition Condition Status Onset Resolution Last Treating Co mments Source Name Details Category Date Date Treatment Clinician Date 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 2-24 Se ybold able able 00:00: - headache 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 Neck pain Neck pain Disease Active Arnaldo [...] Class 2 Disease Active Marilyn obesity obesity -24 Seybold due to due to 00:00: - excess excess 00 Externa calories calories l without without serious serious comorbidit comorbidit y with y with body mass body mass index index (BMI) of (BMI) of 36.0 to 36.0 to 36.9 in 36.9 in adult adult Tension Tension Disease Active Marilyn headache headache -24 Seybol d 00:00: - 00 Externa l Allergies, Adverse Reactions, Alerts Allergy Allergy Status Severity Reaction(s) Onset Inactive Treating Comm ents Source Name Type Date Date Clinician Louis Radfordensi Active Other Marilyn ins ty to 04-24 reaction( Seybold adverse 00:00: s): Hives - reaction 00 Externa s l Social History Social Habit Start Date Stop Date Quantity Comments Source History SDOH Marilyn Murphy ld - Alcohol Frequency Externa l History KEYOH Marilyn Murphy ld - Alcohol Std 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 KEYOH Marilyn Murphy ld - Alcohol Binge External History of tobacco Smoker Marilyn Gee - use External Alcohol intake 2022-04-26 2022-04-26 Ex-drinker Marilyn macdonald - 00:00:00 00:00:00 (finding) External Alcohol Comment 2022-03-26 2022-03-26 sober for years Oralia Gee - 00:00:00 00:00:00 External Education 2022-03-26 2022-03-26 11 Marilyn Gee - 00:00:00 00:00:00 External Cigarettes smoked 2022-03-26 2022-03-26 Marilyn Gee - current (pack per 00:00:00 00:00:00 Externa l day) - Reported Cigarette 2022-03-26 2022-03-26 Marilyn Gee - pack-years 00:00:00 00:00:00 External Tobacco use and 2022-03-26 2022-03-26 Smokeless tobacco Valentino Gee - exposure 00:00:00 00:00:00 non-user External Sex Ass[birth year] At [birth year] Marilyn negron - 00:00:00 00:00:00 External Smoking Status Start Date Stop Date Source Ex-smoker 2022-03-26 00:00:00 2022-03-26 00:00:00 Marilyn S eybold - External Medications Ordered Filled Start Stop Current Ordering Indication Dosage Frequency Signature Comments Components Source Medication Medication Date Date Medication? Clinician (SIG) Name Name Cetirizine Yes 10mg Take 10 mg K elsey (ZYRTEC) 10 2-24 by mouth Seyb old MG oral 16:05: daily - Tablet 19 Externa l Lactulose 2022-0 Yes [id number] 10g Q.5D Take 15 mL Marilyn 10 GM/15ML 2-06 (10 g Seybold oral 00:00: total) by - Solution 00 mouth 2 Externa times l daily as needed (constipat ion) Gabapentin 2022-0 Yes [id number] 100mg Q.5D Take 1 Marilyn 100 MG oral 2-02 capsule Seybo ld Capsule 00:00: (100 mg - 00 total) by Externa mouth 2 l times daily as needed (pain) Cyclobenzap 2022-0 Yes [id number] 10mg Q.5D Take 1 Marilyn rine HCl 10 2-02 tablet (10 Se ybold MG oral 00:00: mg total) - Tablet 00 by mouth 2 Externa times l daily as needed for muscle spasms Ondansetron 2022-0 Yes [id number] 4mg Q.[id number] Take 1 Marilyn HCl 4 MG 2-02 [id number] tablet (4 Seybold oral Tablet 00:00: 3D mg total) - 00 by mouth Externa every 8 l hours as needed for nausea Cetirizine 2022-0 Yes 10mg Take 10 mg K elsey (ZYRTEC) 10 1-24 by mouth Seyb old MG oral 16:26: daily - Tablet 02 Externa l predniSONE 2022-0 Yes [id number] 10mg Take 1 Marilyn (DELTASONE) 1-24 tablet (10 Se ybold 10 MG oral 00:00: mg total) - tablet 00 by mouth Externa daily l Tizanidine 2022-0 Yes [id number] 2mg Q.5D Take 1 K elsey HCl 2 MG 1-24 tablet (2 Seybol d oral Tablet 00:00: mg total) - 00 by mouth 2 Externa times l daily as needed for muscle spasms Famotidine 2022-0 Yes [id number] 20mg Take 1 Marilyn (Pepcid) 20 1-24 tablet (20 Se ybold MG oral 00:00: mg total) - tablet 00 by mouth 2 Externa times l daily predniSONE 2022-0 Yes [id number] 10mg Take 1 Marilyn (DELTASONE) 1-24 tablet (10 Se ybold 10 MG oral 00:00: mg total) - tablet 00 by mouth Externa daily l Famotidine Yes [id number] 20mg Take 1 Marilyn (Pepcid) 20 1-24 tablet (20 Se ybold MG oral 00:00: mg total) - tablet 00 by mouth 2 Externa times l daily Vital Signs Vital Name Observation Time Observation Value Comments Source Systolic blood 2022-04-26 22:03:00 122 mm[Hg] Marilyn Conteybold - pressure External Diastolic blood 2022-04-26 22:03:00 80 mm[Hg] Sean barajas Seybold - pressure External Heart rate 2022-04-26 22:03:00 95 /min Marilyn naranjobold - External Body temperature 2022-04-26 22:03:00 36.56 Nahomy Oralia ey Seybold - External Respiratory rate 2022-04-26 22:03:00 14 /min Oralia naranjo Seybold - External Body height 2022-04-26 22:03:00 170.2 cm Marilyn [place] - External Body weight 2022-04-26 22:03:00 107.502 kg Marilyn naranjobotrent - External BMI 2022-04-26 22:03:00 37.12 kg/m2 Marilyn [place] - External Oxygen saturation in 2022-04-26 22:03:00 99 /min Marilyn Gee - Arterial blood by External Pulse oximetry Systolic blood 2022-03-26 21:53:00 130 mm[Hg] Marilyn Conteybold - pressure External Diastolic blood 2022-03-26 21:53:00 70 mm[Hg] Sean barajas Seybold - pressure External Heart rate 2022-03-26 21:53:00 116 /min Marilyn Yousuf marcellabold - External Body temperature 2022-03-26 21:53:00 37.06 Nahomy Oralia ey Seybold - External Respiratory rate 2022-03-26 21:53:00 16 /min Oralia ey Seybold - External Body height 2022-03-26 21:53:00 170.2 cm Marilyn [place] - External Body weight 2022-03-26 21:53:00 106.595 kg Marilyn [place] - External BMI 2022-03-26 21:53:00 36.81 kg/m2 Marilyn Yousuf naranjorenae - External Procedures This patient has no known procedures. Encounters Start End Encounter Admission Attending Care Care Encounter Source Date/Time Date/Time Type Type Clinicians Facility Department ID 2022-05-31 2022-05-31 Outpatient FARZADALF MARILYN JOHNSON [id number] Marilyn 13:00:00 13:00:00 Seybol d 2022-05-24 2022-05-24 Outpatient MARILYN RICHTER [id number] Marilyn 16:00:00 16:00:00 CHACHO Seybol d 2022-05-10 2022-05-10 Outpatient MARILYN RICHTER [id number] Marilyn 00:00:00 00:00:00 CHACHO Seybol d 2022-05-10 2022-05-10 Outpatient MARILYN RICHTER [id number] Marilyn 00:00:00 00:00:00 CHACHO Seybol d 2022-05-07 2022-05-07 Outpatient MARILYN RICHTER [id number] Marilyn 00:00:00 00:00:00 CHACHO Seybol d 2022-05-07 2022-05-07 Outpatient MARILYN RICHTER [id number] Marilyn 00:00:00 00:00:00 CHACHO Seybol d 2022-05-03 2022-05-03 Outpatient PREMARILYN CHI [id number] Marilyn 00:00:00 00:00:00 CHACHO Seybol d 2022-05-02 2022-05-02 Outpatient MARILYN RICHTER [id number] Marilyn 00:00:00 00:00:00 CHACHO Seybol d 2022-05-01 2022-05-01 Outpatient MARILYN RICHTER [id number] Marilyn 00:00:00 00:00:00 CHACHO Seybol d 2022-05-01 2022-05-01 Outpatient PREZAMARILYN To [id number] Marilyn 00:00:00 00:00:00 CHACHO Seybol d 2022-04-26 2022-04-26 Outpatient PREZAMARILYN To [id number] Marilyn 16:00:00 16:00:00 CHACHO Seybol d 2022-04-26 2022-04-26 Outpatient MARILYN JOHNSON [id number] Marilyn 11:15:00 11:15:00 Seybol d 2022-04-26 2022-04-26 Outpatient LAB90 MARILYN JOHNSON [id number] Marilyn 08:20:00 08:20:00 Seybol d 2022-04-26 2022-04-26 Outpatient PREZAMARILYN To [id number] Marilyn 00:00:00 00:00:00 CHACHO Seybol d 2022-04-26 2022-04-26 Outpatient PREMARILY[facility] CHI [id number] Marilyn 00:00:00 00:00:00 CHACHO Seybol d 2022-04-24 2022-04-24 Outpatient PREZAMARILYN To [id number] Marilyn 00:00:00 00:00:00 CHACHO Seybol d 2022-04-24 2022-04-24 Outpatient MARILYN STEWART [id number] Marilyn 00:00:00 00:00:00 DONTAE Seybol d 2022-04-24 2022-04-24 Outpatient PREMARILYN CHI [id number] Marilyn 00:00:00 00:00:00 CHACHO Seybol d 2022-04-23 2022-04-23 Outpatient PREZAMARILYN To [id number] Marilyn 00:00:00 00:00:00 CHACHO Seybol d 2022-04-23 2022-04-23 Outpatient PREZAMARILYN To [id number] Marilyn 00:00:00 00:00:00 CHACHO Seybol d 2022-04-18 2022-04-18 Outpatient SHARRON LIN [id number] Marilyn 16:30:00 16:30:00 Seybol d 2022-04-18 2022-04-18 Outpatient [facility] MARILYN JOHNSON [id number] Marilyn 00:00:00 00:00:00 MD DK Seybol d 2022-04-08 2022-04-08 Outpatient PREZAMARILYN To [id number] Marilyn 00:00:00 00:00:00 CHACHO Seybol d 2022-04-08 2022-04-08 Outpatient PREZAMARILYN To [id number] Marilyn 00:00:00 00:00:00 CHACHO Seybol d 2022-04-05 2022-04-05 Outpatient PREZASMARILYN [id number] Marilyn 00:00:00 00:00:00 CHACHO Seybol d 2022-04-04 2022-04-04 Outpatient PREZAMARILYN To [id number] Marilyn 00:00:00 00:00:00 CHACHO Seybol d 2022-04-04 2022-04-04 Outpatient PREZAMARILYN To [id number] Marilyn 00:00:00 00:00:00 CHACHO Seybol d 2022 2022 Outpatient PREZASMARILYN [id number] Marilyn 00:00:00 00:00:00 CHACHO Seybol d 2022-03-27 2022-03-27 Outpatient PREZAMARILYN To [id number] Marilyn 00:00:00 00:00:00 CHACHO Seybol d 2022-03-26 2022-03-26 Outpatient PREZAMARILYN To [id number] Marilyn 16:15:00 16:15:00 CHACHO Seybol d Results This patient has no known results.
[2022-05-10] MEDS ORDERED: ACETAMINOPHEN 325 MG TABLET ONE (18:57)
[2022-05-10] MEDS ORDERED: ONDANSETRON 4 MG (ODT) TAB ONE (18:57)
[2022-05-10 19:47] LABS: SARS-COV-2 RT PCR POSITIVE (NEGATIVE)
[2022-05-10 20:11] LABS: Urine Blood Negative (Negative); Urine Glucose Negative (Negative); Urine Protein 1+ (Negative); Urine Specific Gravity >=1.030 (1.005-1.030)
[2022-05-10 20:25] LABS: Urine Bacteria <20 /HPF (<20); Urine Mucus Slight /HPF (None Seen); Urine RBC <5 /HPF (None Seen)
[2022-05-11 01:09] VITALS: BP 108/83; TEMP 97.9; O2SAT 99
--- NOTE | 2022-05-24 16:04 | ER ---
Nurse's Notes [facility] Name: Mike Daugherty Age: 42 yrs Sex: Male : 1980 Arrival Date: 05/10/2022 Time: 18:06 Bed DIS1 Private MD: Diagnosis: Streptococcal pharyngitis;SARS-associated coronavirus as the cause of diseases classified elsewhere Presentation: 05/10 18:45 Chief complaint: Patient states: Body aches, fatigue, nausea, fever, sore throat, cough ph that started Wed and near syncope earlier today, Also reports lower abdominal and back pain. Coronavirus screen: Vaccine status: Patient reports receiving the 2nd dose of the covid vaccine. Ebola Screen: No symptoms or risks identified at this time. Initial Sepsis Screen: Does the patient meet any 2 criteria? No. Patient's initial sepsis screen is negative. Does the patient have a suspected source of infection? No. Patient's initial sepsis screen is negative. Risk Assessment: Do you want to hurt yourself or someone else? Patient reports no desire to harm self or others. Onset of symptoms was May 10, 2022. 18:45 Method Of Arrival: Ambulatory ph 18:45 Acuity: UTE 4 ph Triage Assessment: 18:57 General: Appears in no apparent distress. Behavior is calm, cooperative, appropriate ph for age, Reports chills for fever for > 3 days. Pain: Complains of pain in back and abdomen. EENT: Reports nasal congestion nasal discharge pain when swallowing. Respiratory: Reports cough that is Airway is patent Respiratory effort is even, unlabored. GI: Reports nausea, Patient currently denies diarrhea, vomiting. Derm: Skin is pink, warm \T\ dry. Historical: - Allergies: 18:56 PENICILLINS; ph - PSHx: 18:56 Appendectomy; ph - Immunization history:: Adult Immunizations unknown. - Social history:: Smoking status: Patient denies any tobacco usage or history of. Assessment: 20:52 Reassessment: Patient is alert, oriented x 3, equal unlabored respirations, skin bb warm/dry/pink. pt seen by this RN at discharge pt verbalized understanding of and agrees to plan of care discharge instructions given pt ambulated with steady gait to exit. Vital Signs: 18:45 BP 162 / 70; Pulse 89; Resp 18; Temp 99.2; Pulse Ox 96% on R/A; Weight 99.79 kg; Height ph 5 ft. 7 in. ; 20:53 BP 108 / 83; Pulse 85; Resp 16 S; Temp 97.9(O); Pulse Ox 99% on R/A; bb 18:45 Body Mass Index 34.46 (99.79 kg, 170.18 cm) ph ED Course: 18:06 Patient arrived in ED. jj6 18:07 Lauri Guevara PA is PHCP. cp 18:07 Rhys Servin MD is Attending Physician. cp 18:51 Triage completed. ph 18:51 Arm band placed on Patient placed in waiting room. ph 18:57 Strep Sent. ph 18:57 COVID-19/FLU A+B Sent. ph 20:53 Patient did not have IV access during this emergency room visit. bb Administered Medications: 18:57 Drug: Acetaminophen PO 650 mg Route: PO; ph 18:57 Drug: Ondansetron PO 4 mg Route: PO; ph Outcome: 20:25 Discharge ordered by MD. cp 20:53 Discharged to home ambulatory. bb 20:53 Condition: stable 20:53 Discharge instructions given to patient, Instructed on discharge instructions, follow up and referral plans. medication usage, Demonstrated understanding of instructions, follow-up care, medications, Prescriptions given X 4. 20:54 Patient left the ED. bb Signatures: Ofelia Luna, RN RN bb Alicia Mccann RN RN Lauri Guevara PA PA cp Jeffries, Jennifer jj6
--- NOTE | 2022-05-24 16:04 | EDPHYS ---
Physician Documentation [facility] Name: Mike Daugherty Age: 42 yrs Sex: Male : 1980 Arrival Date: 05/10/2022 Time: 18:06 Bed DIS1 Private MD: ED Physician Rhys Servin HPI: 05/10 19:00 This 42 yrs old Male presents to ER via Ambulatory with complaints of Cough, Fever, cp Sore Throat. 19:00 The patient or guardian reports cough, with no sputum. Onset: The symptoms/episode cp began/occurred 3 day(s) ago. 19:00 Severity of symptoms: in the emergency department the symptoms are unchanged, despite cp home interventions. Associated signs and symptoms: Pertinent positives: fever, nausea, headache, body aches. Historical: - Allergies: 18:56 PENICILLINS; ph - PSHx: 18:56 Appendectomy; ph - Immunization history:: Adult Immunizations unknown. - Social history:: Smoking status: Patient denies any tobacco usage or history of. ROS: 19:05 Constitutional: Positive for body aches, chills, Negative for fever, poor PO intake. cp 19:05 Eyes: Negative for injury, pain, redness, and discharge. cp 19:05 ENT: Positive for sore throat, Negative for drainage from ear(s), ear pain, difficulty swallowing, difficulty handling secretions. 19:05 Cardiovascular: Negative for chest pain. 19:05 Respiratory: Positive for cough, Negative for shortness of breath, wheezing. 19:05 Abdomen/GI: Positive for nausea, Negative for abdominal pain, vomiting, diarrhea, constipation. 19:05 Neuro: Positive for headache, Negative for altered mental status. 19:05 All other systems are negative. Exam: 19:10 Constitutional: The patient appears in no acute distress, alert, awake, cp non-diaphoretic, non-toxic, well developed, well nourished, obviously ill. 19:10 Head/Face: Normocephalic, atraumatic. cp 19:10 Eyes: Periorbital structures: appear normal, Conjunctiva: normal, no exudate, no injection, Sclera: no appreciated abnormality, Lids and lashes: appear normal, bilaterally. 19:10 ENT: External ear(s): are unremarkable, Nose: is normal, Mouth: Lips: moist, Oral mucosa: moist, Posterior pharynx: Airway: no evidence of obstruction, patent, swelling, is not appreciated, erythema, that is mild, exudate, is not appreciated. 19:10 Neck: ROM/movement: is normal, is supple, no range of motions limitations, no meningismus, no nuchal rigidity. 19:10 Chest/axilla: Inspection: normal. 19:10 Cardiovascular: Rate: normal, Rhythm: regular. 19:10 Respiratory: the patient does not display signs of respiratory distress, Respirations: normal, no use of accessory muscles, no retractions, labored breathing, is not present, Breath sounds: are clear throughout, no decreased breath sounds, no stridor, no wheezing. 19:10 Abdomen/GI: Inspection: abdomen appears normal, Palpation: abdomen is soft and non-tender, in all quadrants. 19:10 Skin: no rash present. 19:10 Neuro: Orientation: to person, place \T\ time. Mentation: is normal, Motor: moves all fours, strength is normal, Sensation: is normal. Vital Signs: 18:45 BP 162 / 70; Pulse 89; Resp 18; Temp 99.2; Pulse Ox 96% on R/A; Weight 99.79 kg; Height ph 5 ft. 7 in. ; 20:53 BP 108 / 83; Pulse 85; Resp 16 S; Temp 97.9(O); Pulse Ox 99% on R/A; bb 18:45 Body Mass Index 34.46 (99.79 kg, 170.18 cm) ph MDM: 19:00 Differential Diagnosis: Bronchitis Influenza Pharyngitis Otitis Media Viral Syndrome cp Pneumonia. 19:02 Patient medically screened. cp 20:25 Data reviewed: vital signs, nurses notes, lab test result(s). cp 20:25 Test considered but Not performed: X-ray: chest. Counseling: I had a detailed cp discussion with the patient and/or guardian regarding: the historical points, exam findings, and any diagnostic results supporting the discharge/admit diagnosis, lab results, to return to the emergency department if symptoms worsen or persist or if there are any questions or concerns that arise at home. 05/10 18:51 Order name: COVID-19/FLU A+B; Complete Time: 20:13 cp 05/10 18:51 Order name: Strep cp 05/10 18:51 Order name: Urine Microscopic Only cp 05/10 20:11 Order name: Urine Dipstick-Ancillary; Complete Time: 20:13 EDMS 05/10 18:51 Order name: Urine Dipstick-Ancillary (obtain specimen) cp Administered Medications: 18:57 Drug: Acetaminophen PO 650 mg Route: PO; ph 18:57 Drug: Ondansetron PO 4 mg Route: PO; ph Disposition Summary: 05/10/22 20:25 Discharge Ordered Location: Home cp Problem: new cp Symptoms: are unchanged cp Condition: Stable cp Diagnosis - Streptococcal pharyngitis cp - SARS-associated coronavirus as the cause of diseases classified elsewhere cp Followup: cp - With: Private Physician - When: 2 - 3 days - Reason: Worsening of condition Discharge Instructions: - Discharge Summary Sheet cp - Aspirin and Your Heart cp - Form - Excuse from Work, School, or Physical Activity cp - COVID-19 cp - How to Protect Yourself and Others - [facility] (04/27/2021) cp - 10 Things You Can Do to Manage Your COVID-19 Symptoms at Home - [facility] (09/15/2020) cp - COVID-19: Quarantine and Isolation - [facility] (05/30/2021) cp - COVID-19: What to Do If You Are Sick - [facility] (05/22/2021) cp Forms: - Work release form bb - Medication Reconciliation Form cp - Thank You Letter cp - Antibiotic Education cp - Prescription Opioid Use cp Prescriptions: - Bromfed DM 2-30-10 mg/5 mL Oral syrup - administer 10 milliliter by ORAL route 4 times per day; 180 milliliter; cp Refills: 0, Product Selection Permitted - Paxlovid (EUA) 150-100 mg Oral Tablet, Dose Pack - take 1 dose pack by ORAL route per package directions for 5 days; 30 tablet; cp Refills: 0, Product Selection Permitted - Cephalexin 500 mg Oral Capsule - take 1 capsule by ORAL route every 8 hours for 10 days; 30 capsule; Refills: 0, cp Product Selection Permitted - Ibuprofen 800 mg Oral Tablet - take 1 tablet by ORAL route every 8 hours As needed take with food; 30 tablet; cp Refills: 0, Product Selection Permitted Addendum: 05/13/2022 08:42 Co-signature as Attending Physician, Rhys Servin MD I reviewed the patient's care r n provided by the Advanced Practice Provider and agree with the diagnosis and treatment plan. Signatures: Dispatcher [employer] Rhys Guardado MD MD rn Hall, Patricia, RN RN ph Lauri Guevara PA PA cp
== END 2022-05-10 20:54 | disposition home or self-care (01) ==
LOC: ER 17:57
DX: U07.1 COVID-19 (principal); J02.0 Streptococcal pharyngitis; Z88.0 Allergy status to penicillin
CPT/HCPCS: 87081; 0240U; 99283; Q0162; 81003; 81015

== ENCOUNTER 2022-12-28 00:18 | Emergency (ER) | payer OTHER ==
--- OUTSIDE RECORDS SUMMARY | 2022-12-28 00:21 | XMS REPORT | Continuity of Care Document ---
:1980 Author Organization [facility] t Address [address]. [address] [place] [address] Care Team Providers Name Role Phone CHACHO RICHTER Attending Clinician Unavailable ALF PANDA Attending Clinician Unavailable LAB90 Attending Clinician Unavailable DONTAE STEWART Attending Clinician Unavailable RILEY, SHARRON 1 Attending Clinician Unavailable MD JULIO Attending Clinician Unavailable Payers Payer Name Policy Type Policy Number Effective Date Expiration Date Yousuf atwood [employer]/P 2 [id number] 2022 00:00:00 PO Problems Condition Condition Condition Status Onset Resolution Last Treating Co mments Source Name Details Category Date Date Treatment Clinician Date 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 2-24 Se ybold able able 00:00: - headache 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 l Neck pain Neck pain Disease Active Arnaldo sey 1-24 Seybold 00:00: - 00 Externa l Itching Itching Disease Active Marilyn with with 124 Seybold irritation irritation 00:00: - 00 Externa [...] Tension Tension Disease Active Marilyn headache headache 03-26 Seybol d 00:00: - 00 Externa l [...] Marilyn Murphy ld - Alcohol Std Drinks 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 History KEYOH Marilyn Murphy ld - [...] Tablet 19 Externa l Lactulose 2022-0 Yes [id number] 10g Q.5D Take 15 mL Marilyn 10 GM/15ML 2-06 (10 g Seybold oral 00:00: total) by - Solution 00 mouth 2 Externa times l daily as needed (constipat ion) Gabapentin 2022-0 Yes [id number] 100mg Q.5D Take 1 Marilyn 100 MG oral 2-02 capsule Seybo ld Capsule 00:00: (100 mg - 00 total) by Externa mouth 2 l times daily as needed (pain) Cyclobenzap 0 Yes [id number] 10mg Q.5D Take 1 Marilyn rine HCl 10 2-02 tablet (10 Se ybold MG oral 00:00: mg total) - Tablet 00 by mouth 2 Externa times l daily as needed for muscle spasms Ondansetron Yes [id number] 4mg Q.[id number] Take 1 Marilyn HCl 4 MG 2-02 [id number] tablet (4 Seybold oral Tablet 00:00: 3D mg total) - 00 by mouth Externa every 8 l hours as needed for nausea Cetirizine 0 Yes 10mg Take 10 mg K elsey (ZYRTEC) 10 1-24 by mouth Seyb old MG oral 16:26: daily - Tablet 02 Externa l predniSONE 2022-0 Yes [id number] 10mg Take 1 Marilyn (DELTASONE) 1-24 tablet (10 Se ybold 10 MG oral 00:00: mg total) - tablet 00 by mouth Externa daily l Tizanidine 2022-0 Yes [id number] 2mg Q.5D Take 1 K elsey HCl 2 MG 1-24 tablet (2 Seybol d oral Tablet 00:00: mg total) - 00 by mouth 2 Externa times l daily as needed for muscle spasms Famotidine 0 Yes [id number] 20mg Take 1 Marilyn (Pepcid) 20 1-24 tablet (20 Se ybold MG oral 00:00: mg total) - tablet 00 by mouth 2 Externa times l daily predniSONE 2022-0 Yes [id number] 10mg Take 1 Marilyn (DELTASONE) 1-24 tablet (10 Se ybold 10 MG oral 00:00: mg total) - tablet 00 by mouth Externa daily l Famotidine Yes [id number] 20mg Take 1 Marilyn (Pepcid) 20 1-24 tablet (20 Se ybold MG oral 00:00: mg total) - tablet 00 by mouth 2 Externa times l daily Vital Signs Vital Name Observation Time Observation Value Comments Source Systolic blood 2022-04-26 22:03:00 122 mm[Hg] Marilyn Seybold - pressure External Diastolic blood 2022-04-26 22:03:00 80 mm[Hg] Sean barajas Seybold - pressure External Heart rate 2022-04-26 22:03:00 95 /min Marilyn Yousuf eybold - External Body temperature 2022-04-26 22:03:00 36.56 Nahomy Oralia ey Seybold - External Respiratory rate 2022-04-26 22:03:00 14 /min Oralia naranjo Seybold - External Body height 2022-04-26 22:03:00 170.2 cm Marilyn Yousuf marcellabotrent - External Body weight 2022-04-26 22:03:00 107.502 kg Marilyn Yousuf marcellabold - External BMI 2022-04-26 22:03:00 37.12 kg/m2 Marilyn Yousuf marcellabold - External Oxygen saturation in 2022-04-26 22:03:00 99 /min Marilyn Gee - Arterial blood by External Pulse oximetry Systolic blood 2022-03-26 21:53:00 130 mm[Hg] Marilyn Conteybold - pressure External Diastolic blood 2022-03-26 21:53:00 70 mm[Hg] Sean barajas Seybold - pressure External Heart rate 2022-03-26 21:53:00 116 /min Marilyn S eybold - External Body temperature 2022-03-26 21:53:00 37.06 Nahomy Oralia ey Seybold - External Respiratory rate 2022-03-26 21:53:00 16 /min Oarlia ey Seybold - External Body height 2022-03-26 21:53:00 170.2 cm Marilyn naranjorenae - External Body weight 2022-03-26 21:53:00 106.595 kg Marilyn naranjorenae - External BMI 2022-03-26 21:53:00 36.81 kg/m2 Marilyn Yousuf stanislav - External Procedures This patient has no known procedures. Encounters Start End Encounter Admission Attending Care Care Encounter Source Date/Time Date/Time Type Type Clinicians Facility Department ID 2022-10-11 2022-10-11 Outpatient MARILYN RICHTER [id number] Marilyn 00:00:00 00:00:00 CHACHO Seybol d 2022-06-14 2022-06-14 Outpatient MARILYN RICHTER [id number] Marilyn 00:00:00 00:00:00 CHACHO Seybol d 2022-05-31 2022-05-31 Outpatient ALF PANDA [id number] Marilyn 13:00:00 13:00:00 Seybol d 2022-05-24 2022-05-24 Outpatient MARILYN RICHTER [id number] Marilyn 16:00:00 16:00:00 CHACHO Seybol d 2022-05-13 2022-05-13 Outpatient MARILYN RICHTER [id number] Marilyn 00:00:00 00:00:00 CHACHO Seybol d 2022-05-13 2022-05-13 Outpatient MARILYN RICHTER [id number] Marilyn 00:00:00 00:00:00 CHACHO Seybol d 2022-05-10 2022-05-10 Outpatient MARILYN RICHTER [id number] Marilyn 00:00:00 00:00:00 CHACHO Seybol d 2022-05-10 2022-05-10 Outpatient MARILYN RICHTER [id number] Marilyn 00:00:00 00:00:00 CHACHO Seybol d 2022-05-07 2022-05-07 Outpatient MARILYN RICHTER [id number] Marilyn 00:00:00 00:00:00 CHACHO Seybol d 2022-05-07 2022-05-07 Outpatient MARILYN RICHTER [id number] Marilyn 00:00:00 00:00:00 CHACHO Seybol d 2022-05-03 2022-05-03 Outpatient PREZAS, MARILYN JOHNSON [id number] Marilyn 00:00:00 00:00:00 CHACHO Seybol d 2022-05-02 2022-05-02 Outpatient PREZAS, MARILYN JOHNSON [id number] Marilyn 00:00:00 00:00:00 CHACHO Seybol d 2022-05-01 2022-05-01 Outpatient PREZAS, MARILYN JOHNSON [id number] Marilyn 00:00:00 00:00:00 CHACHO Seybol d 2022-05-01 2022-05-01 Outpatient PREZASMARILYN [id number] Marilyn 00:00:00 00:00:00 CHACHO Seybol d 2022-04-26 2022-04-26 Outpatient PREZAS, MARILYN JOHNSON [id number] Marilyn 16:00:00 16:00:00 CHACHO Seybol d 2022-04-26 2022-04-26 Outpatient MARILYN JOHNSON [id number] Marilyn 11:15:00 11:15:00 Seybol d 2022-04-26 2022-04-26 Outpatient LAB90 MARILYN JOHNSON [id number] Marilyn 08:20:00 08:20:00 Seybol d 2022-04-26 2022-04-26 Outpatient PREZAS, MARILYN JOHNSON [id number] Marilyn 00:00:00 00:00:00 CHACHO Seybol d 2022-04-26 2022-04-26 Outpatient PREZASMARILYN [id number] Marilyn 00:00:00 00:00:00 CHACHO Seybol d 2022-04-24 2022-04-24 Outpatient PREZASMARILYN [id number] Marilyn 00:00:00 00:00:00 CHACHO Seybol d 2022-04-24 2022-04-24 Outpatient MARILYN STEWART [id number] Marilyn 00:00:00 00:00:00 DONTAE Seybol d 2022-04-24 2022-04-24 Outpatient PREZAS, MARILYN JOHNSON [id number] Marilyn 00:00:00 00:00:00 CHACHO Seybol d 2022-04-23 2022-04-23 Outpatient PREZAS, MARILYN JOHNSON [id number] Marilyn 00:00:00 00:00:00 CHACHO Seybol d 2022-04-23 2022-04-23 Outpatient PREZAS, MARILYN JOHNSON [id number] Marilyn 00:00:00 00:00:00 CHACHO Seybol d 2022-04-18 2022-04-[address], SHARRON JOHNSON [id number] Marilyn 16:30:00 16:30:00 Seybol d 2022-04-18 2022-04-18 Outpatient MYKELSEYONL MARILYN JOHNSON [id number] Marilyn 00:00:00 00:00:00 MD DK Seybol d 2022-04-08 2022-04-08 Outpatient PREZAS, MARILYN JOHNSON [id number] Marilyn 00:00:00 00:00:00 CHACHO Seybol d 2022-04-08 2022-04-08 Outpatient PREZAS, MARILYN JOHNSON [id number] Marilyn 00:00:00 00:00:00 CHACHO Seybol d 2022-04-05 2022-04-05 Outpatient PREZAS, MARILYN JOHNSON [id number] Marilyn 00:00:00 00:00:00 CHACHO Seybol d 2022-04-04 2022-04-04 Outpatient PREZAS, MARILYN JOHNSON [id number] Marilyn 00:00:00 00:00:00 CHACHO Seybol d 2022-04-04 2022-04-04 Outpatient PREZAS, MARILYN JOHNSON [id number] Marilyn 00:00:00 00:00:00 CHACHO Seybol d 2022 2022 Outpatient PREZAS, MARILYN JOHNSON [id number] Marilyn 00:00:00 00:00:00 CHACHO Seybol d 2022-03-27 2022-03-27 Outpatient PREZASMARILYN [id number] Marilyn 00:00:00 00:00:00 CHACHO Seybol d 2022-03-26 2022-03-26 Outpatient MARILYN RICHTER [id number] Marilyn 16:15:00 16:15:00 CHACHO [place] Results This patient has no known results.
[2022-12-28 00:47] LABS: Absolute Lymphocytes (CBC) 2.9 K/uL (0.7-4.9); Hematocrit 46.9 % (39.6-49.0); Lymphocytes % 24.6 % (15.3-44.8); MCV 87.2 fL (80-100); MPV 8.8 fL (7.6-11.3); Platelets 318 thou/uL (152-406); RBC Red Blood Cell Count 5.37 M/uL (4.33-5.43)
[2022-12-28] MEDS ORDERED: NA CHLORIDE 0.9% 1,000 ML ONE ×2 (00:56→01:33)
[2022-12-28] MEDS ORDERED: CEFAZOLIN SODIUM 1 GM/VIAL ONE (01:00)
[2022-12-28] MEDS ORDERED: NA CHLORIDE 0.9% 0 ML ONE (01:00)
[2022-12-28] MEDS ORDERED: MORPHINE 4 MG/ML SYR ONE ×2 (01:32→02:59)
[2022-12-28] MEDS ORDERED: ONDANSETRON 4 MG/2 ML VIAL ONE (01:32)
[2022-12-28] MEDS ORDERED: CLINDAMYCIN 900MG/D5W 900 MG/50 ML IVPB IV ONE (01:33)
[2022-12-28] MEDS ORDERED: TDAP (DIPHTH,PERTUSS(ACELL),TET VAC) 0.5 ML VIAL IMVAC ONE (01:42)
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
[2022-12-28] MEDS ORDERED: POTASSIUM 25 MEQ EFFERV TAB ONE (02:08)
[2022-12-28 03:45] VITALS: TEMP 98
[2022-12-28 03:49] VITALS: BP 135/89; O2SAT 97
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
--- NOTE | 2022-12-31 08:00 | EKG ---
Test Date: 2022-12-28 Test Time: 01:29:57 Head Of Data: MEASUREMENT RESULTS: Intervals: Rate: 96 [place]: 200 QRSD: 72 QT: 338 QTc: 427 [place]: P: 54 [place]: 200 QRS: 29 T: 5 INTERPRETIVE STATEMENTS: Normal sinus rhythm Normal ECG Compared to ECG 04/25/2022 20:22:56 No significant changes Electronically Signed On 12-31-22 07:53:43 CDT by Morris Pena
== END 2022-12-28 03:40 | disposition short-term general hospital (02) ==
LOC: ER 00:18
DX: S01.21XA Laceration without foreign body of nose, initial encounter (principal); Y04.1XXA Assault by human bite, initial encounter; Z88.0 Allergy status to penicillin
CPT/HCPCS: 93005; 85025; 80048; 36415; 70450; 72125; 70486; 76377; 71045; 96375; 96372; 96374; 99284; J2405; J7030 ×2; J0690